=== PATIENT | male | born 1960 | race Caucasian/White ===

== ENCOUNTER 2016-12-30 09:23 | Inpatient (IN) | payer BC ==
[~2016-12-30] VITALS: Ht 193 cm; Wt 110.2 kg
[~2016-12-30 09:23] MED LIST: CYCL-36 PO; IBUP100S30 PO; LORT5TAB PO; NAPR550 PO
[2016-12-30 13:00] VITALS: BP 127/72; PULSE 95; RESP 18; TEMP 96.6; O2SAT 92
[2016-12-30] MEDS ORDERED: DIATRIZOATE MEGLUM/DIATRIZOATE SOD 9 ML CUP PO ONE (14:15)
[2016-12-30] MEDS ORDERED: COLA100C3 PO (14:26)
[2016-12-30] MEDS ORDERED: HYDR-3583 PO (14:26)
[2016-12-30] MEDS ORDERED: IBUP800T23 PO (14:26)
[2016-12-30] MEDS ORDERED: ZANT150T2 PO (14:26)
[2016-12-30] MEDS ORDERED: DOCUSATE SODIUM 50 MG/SENNA 8.6 MG TAB PO PRN (14:30)
[2016-12-30] MEDS ORDERED: ACETAMINOPHEN/HYDROcodone 325 MG/10 MG TAB PO PRN (14:30)
[2016-12-30] MEDS ORDERED: MAGNESIUM HYDROXIDE SUSP 30 ML CUP PO PRN (14:30)
[2016-12-30] MEDS ORDERED: ACETAMINOPHEN/HYDROcodone 325 MG/7.5 MG TAB PO PRN (14:30)
[2016-12-30 16:00] VITALS: BP 132/78; PULSE 98; RESP 18; TEMP 97.1; O2SAT 94
[2016-12-30] MEDS: CALCIUM CARBONATE 500 MG CHEWABLE TAB CHEW PRN (16:41)
--- NOTE | 2016-12-30 16:44 | HHI.PR ---
Objective Vitals Vital Signs Date Time Temp Pulse Resp B/P Pulse Ox O2 Delivery O2 Flow Rate FiO2 12/30/16 13:00 96.6 95 18 127/72 92 Ilda Brock MD Dec 30, 2016 16:44
[2016-12-30 17:31] LABS: AUTOMATED NEUTROPHIL # 13.8 TH/MM3 (1.8-7.7); BASOPHIL # 0.2 TH/MM3 (0-0.2); BASOPHIL % 0.7 % (0.0-2.0); EOSINOPHIL # 10.3 TH/MM3 (0-0.4); EOSINOPHIL % 37.8 % (0.0-4.0); HEMATOCRIT 38.1 % (39.0-51.0); HEMO FLAGS DIFF FINAL; LYMPHOCYTE # 1.9 TH/MM3 (1.0-4.8); MEAN CELL VOLUME 84.9 FL (80.0-100.0); MEAN CORPUSCULAR HEMOGLOBIN 28.2 PG (27.0-34.0); MEAN CORPUSCULAR HGB CONC 33.2 % (32.0-36.0); MONO % 3.9 % (0.0-8.0); NEUT % 50.6 % (16.0-70.0); PLATELET COUNT 406 TH/MM3 (150-450); RED BLOOD COUNT 4.49 MIL/MM3 (4.50-5.90); RED CELL DISTRIBUTION WIDTH 13.9 % (11.6-17.2); WHITE BLOOD COUNT 27.3 TH/MM3 (4.0-11.0)
[2016-12-30 17:43] LABS: APTT (PATIENT) 28.4 SEC (24.3-30.1); PROTHROMBIN TIME - PATIENT 11.4 SEC (9.8-11.6)
[2016-12-30 17:58] LABS: ALT (GPT) 33 U/L (12-78); ANION GAP 9 MEQ/L (5-15); AST (GOT) 11 U/L (15-37); BICARBONATE 29.4 MEQ/L (21.0-32.0); BLOOD UREA NITROGEN 62 MG/DL (7-18); CHLORIDE 100 MEQ/L (98-107); GLOMERULAR FILTRATION RATE 21 ML/MIN (>89); POTASSIUM 4.5 MEQ/L (3.5-5.1); SODIUM (NA) 138 MEQ/L (136-145)
[2016-12-30 18:01] LABS: ALKALINE PHOSPHATASE 124 U/L (45-117); TOTAL BILIRUBIN ADULT 0.3 MG/DL (0.2-1.0)
--- NOTE | 2016-12-30 18:06 | HHI.HP ---
[facility] Service [facility] Primary Care Physician Hal Yi MD Admission Diagnosis Diagnoses: Travel History International Travel<30 Days: No Contact w/Intl Traveler <30 Da: No History of Present Illness Pt evaluated at 1644 Patient is a 56-year-old male with past medical history of back pain and melanoma in situ is a direct admit to the hospital. He comes from Dr. Ng's office, his oncologist, because of severe back pain felt to be caused by metastatic lung cancer to his spine. Patient tells me that around the end of September, he was loading some aches and experienced excruciating pain. He states that he has been having back problems on and off for years however the past 10 weeks his back problems have been getting worse. He has been seeing a chiropractor on and off was diagnosed with back spasms was prescribed Flexeril. He went to see his primary care physician who ordered an MRI last Thursday. On Thursday she went to see his primary care doctor and he was told that they found metastatic disease which initially was thought to be from his prior history of melanoma. He was referred to an oncologist and saw Dr. Ng yesterday. Per , when they spoke about the history of melanoma, she was able to show Dr. Ng the pathology report which apparently showed clear margins and it was melanoma in situ. A chest x-ray was ordered, and showed a lung mass which is very concerning for lung cancer. Patient tells me that he takes hydrocodone 1 tablet when necessary every 6 hours and 2 tablets when the pain is worse. He also takes ibuprofen 800 mg 3 times a day which seems to help a lot. She denies any urinary incontinence or stool incontinence. Does have weakness on the right lower extremity due to his sciatica. He feels some numbness on the lower extremity as well. His is a walker to ambulate at times. Review of Systems Except as stated in HPI: all other systems reviewed are Neg Past Family Social History Past Medical History Back pain, melanoma in situ Past Surgical History 3 nodules removed on the left shouldeSkinr Melanoma removal Allergies: Coded Allergies: Penicillin (Verified Allergy, Severe, HIVES IN THROAT, CAN'T BREATHE, 12/11) Family History Mother from a heart attack in her 70s Father had bypass surgery, kidney problems, skin cancer and prostate cancer. Brother had a triple bypass and a stroke Another brother had prostate cancer Social History Quit smoking a year and a half ago. Used to smoke a pack a day for 25 years Drinks alcohol on the weekends about 4-5 beers a day during the weekends. Denies any history of withdrawals, denies any illegal drug use Physical Exam Vital Signs Vital Signs Date Time Temp Pulse Resp B/P Pulse Ox O2 Delivery O2 Flow Rate FiO2 12/30/16 16:00 97.1 98 18 132/78 94 12/30/16 13:00 96.6 95 18 127/72 92 Physical Exam GENERAL: This is a well-nourished, well-developed patient, in no apparent distress. SKIN: No rashes, ecchymoses or lesions. Cool and dry. HEAD: Atraumatic. Normocephalic. No temporal or scalp tenderness. EYES: Pupils equal round and reactive. Extraocular motions intact. No scleral icterus. No injection or drainage. ENT: Nose without bleeding, purulent drainage or septal hematoma. Throat without erythema, tonsillar hypertrophy or exudate. Uvula midline. Airway patent. NECK: Trachea midline. No JVD or lymphadenopathy. Supple, nontender, no meningeal signs. CARDIOVASCULAR: Regular rate and rhythm without murmurs RESPIRATORY: Clear to auscultation. Breath sounds equal bilaterally. No wheezes GASTROINTESTINAL: Abdomen soft, non-tender, nondistended. No hepato-splenomegaly , or palpable masses. No guarding. MUSCULOSKELETAL: Extremities without edema. No calf tenderness. Negative Homans sign bilaterally. No tenderness along the spine with palpation NEUROLOGICAL: Awake and alert. Cranial nerves II through XII intact. Motor and sensory grossly within normal limits. Five out of 5 muscle strength in all muscle groups except for 4 out of 5 on the right lower extremity. Sensation diminished on the right lower extremity. Normal speech. Laboratory Laboratory Tests Test 12/30/16 17:11 White Blood Count 27.3 Red Blood Count 4.49 Hemoglobin 12.7 Hematocrit 38.1 Mean Corpuscular Volume 84.9 Mean Corpuscular Hemoglobin 28.2 Mean Corpuscular Hemoglobin 33.2 Concent Red Cell Distribution Width 13.9 Platelet Count 406 Mean Platelet Volume 7.2 Neutrophils (%) (Auto) 50.6 Lymphocytes (%) (Auto) 7.0 Monocytes (%) (Auto) 3.9 Eosinophils (%) (Auto) 37.8 Basophils (%) (Auto) 0.7 Neutrophils # (Auto) 13.8 Lymphocytes # (Auto) 1.9 Monocytes # (Auto) 1.1 Eosinophils # (Auto) 10.3 Basophils # (Auto) 0.2 CBC Comment DIFF FINAL Differential Comment Prothrombin Time 11.4 Prothromb Time International 1.0 Ratio Activated Partial 28.4 Thromboplast Time Result Diagram: 12/30/16 5086 Assessment and Plan Assessment and Plan Lung mass noted on chest x-ray as an outpatient w Metastasis to the spine. I personally spoke with Dr. Larry Ng who requested that patient be admitted for further evaluation, as he suspects lung cancer is the primary. Medical oncology, Neurosurgery, neurology, and radiation oncology have been consulted. CBC, BMP, PT/PTT/CEA ordered. Pain meds percocets prn and celebrex daily added. added morphine prn breakthrough pain. PT eval ordered. CT abd/pelvix/thorax and MRI brain ordered. Melanoma in situ: per , completely resected GERD: protonix and tums added DVT proph: ambulation as tolerated, SCD/EDWIN and heparin Code Status full Discussed Condition With patient, and Ilda Rangel MD Dec 30, 2016 18:06
[2016-12-30] MEDS ORDERED: oxyCODONE/ACETAMINOPHEN 10 MG/325 MG TAB PO PRN (18:15)
[2016-12-30] MEDS ORDERED: CELECOXIB 200 MG CAP PO SCH (18:15)
--- NOTE | 2016-12-30 19:38 | RADRPT ---
EXAM DATE/TIME: 12/30/2016 19:08 [facility] COMPARISON: No previous studies available for comparison. INDICATIONS : Evaluate for metastatic disease. RADIATION DOSE: 19.35 CTDIvol (mGy) ; Combined studies - Thorax/Abdomen/Pelvis MEDICAL HISTORY : Carcinoma, lung. Metastatic, bone. SURGICAL HISTORY : None. ENCOUNTER: Initial ACUITY: 1 day PAIN SCALE: 0/10 LOCATION: Bilateral chest TECHNIQUE: Volumetric scanning of the chest was performed. Using automated exposure control and adjustment of t he mA and/or kV according to patient size, radiation dose was kept as low as reasonably achievable to obtain optimal diagnostic quality images. FINDINGS: LUNGS: Large mass superior segment right lower lobe extending into the hilum. This measures approximately 9. 9 x 6.7 cm. Multiple bilateral metastatic nodules ranging in size from 2-21 mm. Prominent nodule left lower lobe measures 2.1 cm. Numerous other bilateral pulmonary nodules. PLEURAE: There is no pleural thickening or pleural effusion. MEDIASTINUM: Right paratracheal adenopathy measures 3.6 x 3.0 cm. Prominent subcarinal adenopathy and right hilar adenopathy. The mass encases the right lower lobe bronchus. Superior mediastinal and prevascular preston opathy. AXILLAE: Left axillary adenopathy.. MUSCULOSKELETAL: Within normal limits for patient age. MISCELLANEOUS: The visualized upper abdominal organs demonstrate no acute abnormality. CONCLUSION: 1. Large right lower lobe mass extending into the hilum. 2. Numerous bilateral metastatic pulmonary nodules. 3. Metastatic adenopathy in the right peritracheal and subcarinal regions. There is also superior med iastinal adenopathy and left axillary adenopathy. Milan Mccallum MD on December 30, 2016 at 19:32 Board Certified Radiologist. This report was verified electronically.
--- NOTE | 2016-12-30 19:39 | RADRPT ---
EXAM DATE/TIME: 12/30/2016 19:08 [facility] COMPARISON: No previous studies available for comparison. INDICATIONS : Evaluate for metastatic disease. ORAL CONTRAST: Prescribed oral contrast ingested. RADIATION DOSE: 19.35 CTDIvol (mGy) ; Combined studies - Thorax/Abdomen/Pelvis MEDICAL HISTORY : Carcinoma, lung. Metastatic, bone. SURGICAL HISTORY : None. ENCOUNTER: Initial ACUITY: 1 day PAIN SCALE: 0/10 LOCATION: All quadrants. TECHNIQUE: Volumetric scanning of the abdomen and pelvis was performed. Using automated exposure control and ad justment of the mA and/or kV according to patient size, radiation dose was kept as low as reasonably achievable to obtain optimal diagnostic quality images. FINDINGS: LOWER LUNGS: Right lower lobe mass and numerous metastatic pulmonary nodules. LIVER: Homogeneous density without lesion. There is no dilation of the biliary tree. No calcified gallston es. There are some prominent lymph nodes in the region of the dacia hepatis including one measuring 2 .5 x 1.6 cm. SPLEEN: Normal size without lesion. PANCREAS: Within normal limits. KIDNEYS: Normal in size and shape. There is no mass, stone, or hydronephrosis. ADRENAL GLANDS: Within normal limits. VASCULAR: There is no aortic aneurysm. BOWEL/MESENTERY: The stomach, small bowel, and colon demonstrate no acute abnormality. There is no free intraperitone al air or fluid. ABDOMINAL WALL: Within normal limits. RETROPERITONEUM: There is no lymphadenopathy. BLADDER: No wall thickening or mass. REPRODUCTIVE: Within normal limits. INGUINAL: There is no lymphadenopathy or hernia. MUSCULOSKELETAL: Within normal limits for patient age. CONCLUSION: 1. Right lower lobe mass and numerous bilateral pulmonary nodules. 2. There are prominent lymph nodes in the region of the dacia hepatis presumed metastatic. 3. The remainder of the abdomen/pelvis is otherwise unremarkable. Milan Mccallum MD on December 30, 2016 at 19:36 Board Certified Radiologist. This report was verified electronically.
[2016-12-30] MEDS: oxyCODONE/ACETAMINOPHEN 10 MG/325 MG TAB PO PRN (19:54)
--- NOTE | 2016-12-30 19:54 | RADRPT ---
EXAM DATE/TIME: 12/30/2016 19:22 [facility] COMPARISON: No previous studies available for comparison. INDICATIONS : Metastatic disease. MEDICAL HISTORY : Carcinoma, lung. Melanoma. Hyperlipidemia. SURGICAL HISTORY : Melanoma removed from left shoulder. ENCOUNTER: Subsequent ACUITY: 1 day PAIN SCORE: 5/10 LOCATION: cranial TECHNIQUE: Multiplanar, multisequence MRI of the brain was performed without contrast. FINDINGS: CEREBRUM: The ventricles are normal for age. No evidence of midline shift, mass lesion, hemorrhage or acute in farction. No extraaxial fluid collections are seen. The pituitary gland and suprasellar cistern are normal in configuration. WHITE MATTER: A. few scattered foci of bright T2 signal abnormalities are seen in the white matter. POSTERIOR FOSSA: The cerebellum and brainstem are intact. The 4th ventricle is midline. The cerebellopontine angle is unremarkable. The cerebellar tonsils are normal in position. DIFFUSION IMAGING: No focal areas of restricted diffusion are seen. No evidence of acute infarction. EXTRACRANIAL: The visualized portions of the orbits and paranasal sinuses are unremarkable. CONCLUSION: 1. Minimal nonspecific white matter changes. 2. No definite metastatic disease. Milan Mccallum MD on December 30, 2016 at 19:50 Board Certified Radiologist. This report was verified electronically.
[2016-12-30 20:00] VITALS: BP 133/81; PULSE 97; RESP 18; TEMP 97.1; O2SAT 95
--- NOTE | 2016-12-30 21:55 | MB ---
cc: ZINA ALEXANDER DATE OF CONSULTATION: 12/30/2016 REASON FOR CONSULTATION: 56-year-old male with a new diagnosis of what appears to be stage IV lung cancer and now found to have renal failure. PATIENT PROFILE The patient is . This is his second marriage. He has two children from his first marriage and two additional children from his current marriage. The two children live at home and are fraternal twins, a son and daughter, each 14 years old. 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 He stopped smoking one year ago and had smoked one pack of cigarettes per day for 25 years. There is no history of heavy alcohol use. He enjoys boating, fishing and family. HISTORY OF PRESENT ILLNESS: The patient is a 56 year-old male who was well until September of 2016 when he developed acute lower back pain after trying to help move hogs through a chute where he had to push them forward. In the past he had mild chronic lower back pain but this pain was excruciating and different. The pain worsened. He went to an urgent care facility and was treated with pain medicines without success. He saw a chiropractor. He used Advil 200 milligrams four pills 3x a day for the past 4-5 weeks in order to control the pain. He recently saw his primary care physician, Dr. Sherin Vizcaino. Dr. Vizcaino ordered an MRI of the lumbar spine on 12/23/2016 without contrast. He was found to have a focal bone lesion at L3, S1 and possibly T12. There was edema and collapse of the central aspect of the L4 vertebral body which appeared pathologic. There was extension beyond the vertebral body margin at the posterior right lateral aspect of the L4 vertebral body. The bulging of the L4 vertebral body caused a moderate impression on the thecal sac. On the same day, 12/23/2016, the patient had a chest x-ray which showed an abnormal density, measuring 7.8 cm in the posterior and medial right mid lung field. The pain became unbearable and I saw him yesterday in the outpatient clinic. It was apparent that he would require inpatient admission for immediate evaluation due to the severity of the pain and the time that it would take to accomplish the necessary studies and consultations. The patient was hospitalized this morning at my request. He had a CMP on 12/30/2016 and is found to be in renal failure which is new. The BUN is 62, creatinine is 3.09, calcium is 10.3, alk phos 124, other liver function tests are normal. CEA is 249. Approximately 1-2 months ago he had blood work and it is my understanding that he had a normal BUN and creatinine. At the present time his complaints are slight dry nonproductive cough and an occasional wheeze. The major problem that he has is severe lower back pain with radiation down the right leg to the heel. RADIOLOGIC STUDIES: The following radiographic studies were done today: CT scan of the thorax was done without contrast because of the elevated creatinine. The lungs show a large mass superior segment right lower lobe extending into the hilum. This measures 9.9 x 6.7 cm. There are multiple bilateral metastatic nodules ranging in size from 2 to 21 mm. There is a prominent nodule in the left lower lobe measuring 2.1 cm. There are numerous other bilateral nodules. There is right paratracheal adenopathy measuring 3.6 x 3.0 cm. There is prominent subcarinal adenopathy and right hilar adenopathy. The mass encases the right lower lobe bronchus. There is superior mediastinal and prevascular adenopathy. There is a left axillary lymph node. MRI of the brain without contrast shows no evidence of metastatic disease. A CT scan of the abdomen and pelvis without contrast shows a right lower lobe mass and numerous bilateral pulmonary nodules. There are prominent lymph nodes in the region the dacia hepatis presumed metastatic. The remainder of the abdomen and pelvis is otherwise unremarkable. PAST SURGICAL HISTORY 1. Benign cysts removed from the skin . 2. Wide excision of melanoma in situ, right leg, following shave bx 2012 identifying residual melanoma in situ, no invasive component, total margin of resection was 2.2 cm. 3. Shave biopsy of right lower leg 09/30/2012 showing melanoma in situ. PAST MEDICAL HISTORY: History of lower back pain dating back to the , requiring at one point a steroid injection, but otherwise not a significant problem. MEDICATIONS PRIOR TO ADMISSION: 1. The patient was taking Advil 200 milligrams 4 tablets, 3x a day for 4-5 weeks. 2. Hydrocodone/Acetaminophen 3. Zantac ALLERGIES Pen-Vee K. REVIEW OF SYSTEMS Constitutional: 20-pound weight loss in the past several weeks. No history of headaches. No visual or hearing problems. No neck pain. No enlarged lymph nodes. No breast masses. He has had slight wheezing and cough. No chest pain. Recent slight decrease in appetite with 20 pound weight loss. Poor urinary stream over the past few months. Musculoskeletal: Severe pain lower back with radiation down into the right leg. Neurologic: Radiation of pain from lower back into the right leg. Psychiatric: Patient worried due to the pain and new diagnosis. ASSESSMENT: 1. 56-year-old male with a history of tobacco presenting with a 9.9 cm mass right lung with hilar and mediastinal adenopathy and pulmonary metastases. In addition he has metastatic disease to the lumbosacral spine and has severe pain in the lower back radiating down the right leg. I believe that he has stage IV lung cancer. 2. The second problem is that the patient has renal failure. This is new. I believe this is due to the ibuprofen. PLAN 1. Needle biopsy of the lung. 2. IV fluids. 3. Renal consult. 4. Neurosurgical consult as it appears that he has bone pressing against the cauda equina and he may require surgery. 5. Radiation oncology consult. 6. Once pathology is back, I will be able to determine what treatment is appropriate. This situation is very grave as we are dealing with a large volume of tumor, stage IV disease, uncontrolled back pain which may require surgery and now renal failure with a calculated GFR of 21 mL which I believe is due to nonsteroidal anti-inflammatory medications. MD JAYY Bettencourt/SHAHEED /9:04 PM /9:28 PM [facility]
[2016-12-30] MEDS: SODIUM CHLOR 0.45% 1000 ML INJ 1,000 ML IV SCH (23:43)
[2016-12-31] VITALS (10 sets, daily range): BP systolic 98–155; BP diastolic 72–91; PULSE 90–104; RESP 16–20; TEMP 96.4–98.2; O2SAT 91–96
[2016-12-31 07:26] LABS: BICARBONATE 25.9 MEQ/L (21.0-32.0); POTASSIUM 4.7 MEQ/L (3.5-5.1)
[2016-12-31] MEDS ORDERED: fentaNYL CITRATE 250 MCG/5 ML AMP ONE (07:59)
[2016-12-31] MEDS ORDERED: MIDAZOLAM HCL 5 MG/5 ML VIAL ONE (07:59)
[2016-12-31] MEDS ORDERED: LIDOCAINE HCL 1% 20 ML VIAL ONE (08:00)
[2016-12-31] MEDS: SODIUM CHLOR 0.45% 1000 ML INJ 1,000 ML IV SCH (08:55)
[2016-12-31] MEDS ORDERED: PANTOPRAZOLE SOD 40 MG DELAYED RELEASE TAB PO SCH (09:00)
--- NOTE | 2016-12-31 09:33 | PD.ONC.PN ---
Subjective Subjective Remarks pain in lower back and down right leg severe. compression stocking make it worse Objective Data Date Time Temp Pulse Resp B/P Pulse Ox O2 Delivery O2 Flow Rate FiO2 12/31/16 09:06 98.2 98 18 126/76 92 12/31/16 04:00 96.4 97 18 139/91 96 12/31/16 00:00 96.7 95 18 134/88 94 12/30/16 20:00 97.1 97 18 133/81 95 12/30/16 16:00 97.1 98 18 132/78 94 12/30/16 13:00 96.6 95 18 127/72 92 Result Diagram: 12/30/16 1711 12/31/16 0629 Laboratory Results Laboratory Tests Test 12/30/16 12/31/16 17:11 06:29 White Blood Count 27.3 TH/MM3 Red Blood Count 4.49 MIL/MM3 Hemoglobin 12.7 GM/DL Hematocrit 38.1 % Mean Corpuscular Volume 84.9 FL Mean Corpuscular Hemoglobin 28.2 PG Mean Corpuscular Hemoglobin 33.2 % Concent Red Cell Distribution Width 13.9 % Platelet Count 406 TH/MM3 Mean Platelet Volume 7.2 FL Neutrophils (%) (Auto) 50.6 % Lymphocytes (%) (Auto) 7.0 % Monocytes (%) (Auto) 3.9 % Eosinophils (%) (Auto) 37.8 % Basophils (%) (Auto) 0.7 % Neutrophils # (Auto) 13.8 TH/MM3 Lymphocytes # (Auto) 1.9 TH/MM3 Monocytes # (Auto) 1.1 TH/MM3 Eosinophils # (Auto) 10.3 TH/MM3 Basophils # (Auto) 0.2 TH/MM3 CBC Comment DIFF FINAL Differential Comment Prothrombin Time 11.4 SEC Prothromb Time International 1.0 RATIO Ratio Activated Partial 28.4 SEC Thromboplast Time Sodium Level 138 MEQ/L 135 MEQ/L Potassium Level 4.5 MEQ/L 4.7 MEQ/L Chloride Level 100 MEQ/L 100 MEQ/L Carbon Dioxide Level 29.4 MEQ/L 25.9 MEQ/L Anion Gap 9 MEQ/L 9 MEQ/L Blood Urea Nitrogen 62 MG/DL 57 MG/DL Creatinine 3.09 MG/DL 2.47 MG/DL Estimat Glomerular Filtration 21 ML/MIN 27 ML/MIN Rate Random Glucose 133 MG/DL 101 MG/DL Calcium Level 10.3 MG/DL 10.6 MG/DL Total Bilirubin 0.3 MG/DL Aspartate Amino Transf 11 U/L (AST/SGOT) Alanine Aminotransferase 33 U/L (ALT/SGPT) Alkaline Phosphatase 124 U/L Total Protein 7.7 GM/DL Albumin 3.1 GM/DL Carcinoembryonic Antigen 249.9 NG/ML Administered Medications Medications (Trade) Dose Ordered Sig/Nilo Route PRN Reason Start Time Stop Time Status Last Admin Dose Admin Calcium Carbonate (Tums Chew) 500 mg Q12HR PRN CHEW HEART BURN 12/30/16 16:15 12/30/16 16:41 Oxycodone/ Acetaminophen 2 tab 2 tab Q6H PRN PO PAIN SCALE 7 TO 10 12/30/16 18:15 12/30/16 19:54 Sodium Chloride (1/2 NS 1000 ml Inj) 1,000 ml @ 84 mls/hr [id number] IV 12/30/16 21:00 12/30/16 23:43 Objective Remarks GENERAL: Well-nourished, well-developed patient. SKIN: Warm and dry. HEAD: Normocephalic. EYES: No scleral icterus. No injection or drainage. NECK: Supple, trachea midline. No JVD or lymphadenopathy. LYMPHATIC: No adenopathy. CARDIOVASCULAR: Regular rate and rhythm without murmurs. RESPIRATORY: Breath sounds equal bilaterally. No accessory muscle use. GASTROINTESTINAL: Abdomen soft, non-tender, nondistended. EXTREMITIES: No cyanosis, or edema. MUSCULOSKELETAL: lower back tende NEUROLOGICAL: mild right leg weakness due to pain. PSYCHIATRIC: Appropriate mood and affect; insight and judgment normal. Assessment/Plan Assessment 1: stage IV lung cancer - for lung bx today -await neurosurgical opinion as I am concerned that radiation to LS area will not resolve pain if due to bone impingement 2: -renal function improved. will continue IV fluids, avoid NSAIDs, and await renal consult Larry Ng MD Dec 31, 2016 09:32
--- NOTE | 2016-12-31 09:55 | RADRPT ---
EXAM DATE/TIME: 12/31/2016 08:29 [facility] COMPARISON: No previous studies available for comparison. INDICATIONS : Right lung mass SEDATION TIME: 30 minutes BIOPSY SITE: Right lung MEDICATION(S): 1.) 3 mg midazolam (Versed) IV 2.) 150 mcg fentanyl (Sublimaze) IV DEVICE(S): 1.) 18 gauge Bartholomew blunt needle 2.) 20 gauge Temno core biopsy needle MEDICAL HISTORY : Melanoma SURGICAL HISTORY : None. ENCOUNTER: Initial ACUITY: 1 day PAIN SCORE: 0/10 LOCATION: Right chest A total of five core specimen(s) were obtained and sent to the laboratory for pathologic evaluation. PROCEDURE: 1. CT guided lung biopsy. 2. Conscious sedation with continuous EKG and oximetry monitoring. 3. EKG and oximetry remained stable throughout the procedure. Prior to the procedure informed consent was obtained. Any appropriate prior imaging studies were rev iewed. Using automated exposure control and adjustment of the mA and/or kV according to patient size, radiation dose was kept as low as reasonably achievable to obtain optimal diagnostic quality images. The site was prepped in a sterile fashion. Full sterile technique was used, including cap, mask, georgette rile gloves and gown and a large sterile sheet. Hand hygiene and 2% chlorhexidine and/or betadine/al cohol prep was utilized per protocol for cutaneous antisepsis. The skin and subcutaneous tissues wer e infiltrated with local anesthetic solution. Using the prone oblique approach an 18 gauge blunt needle was placed down to the subcarinal region an d 5 cores obtained. Follow-up CT scan reveals no pneumothorax. Conscious sedation was performed with the prescribed dosages and duration as above in the presence of an independent trained radiology nurse to assist in the monitoring of the patient. EKG and oximetry remained stable throughout the procedure. The patient tolerated the procedure well and there were no complications. The patient was sent to Radiology Outpatient Unit in stable condition. CONCLUSION: Uncomplicated CT guided biopsy of the right lung mass. Preliminary pathology interpretation is a cell ular specimen.. John Bravo MD FACR on December 31, 2016 at 9:52 Board Certified Radiologist. This report was verified electronically.
[2016-12-31] MEDS: MORPHINE SULFATE 4 MG/ML INJ IV PUSH PRN (11:12)
--- NOTE | 2016-12-31 11:32 | RADRPT ---
EXAM DATE/TIME: 12/31/2016 10:55 [facility] COMPARISON: No previous studies available for comparison. INDICATIONS : Pneumothorax. Post right lung biopsy. MEDICAL HISTORY : Melanoma SURGICAL HISTORY : None. ENCOUNTER: Subsequent ACUITY: 1 day PAIN SCORE: 2/10 LOCATION: Right chest FINDINGS: A single frontal expiratory view of the chest was performed. Large mass is seen on the right with mu ltiple smaller nodules on the left. The lungs are symmetrically aerated and clear. No evidence of pn eumothorax. Mediastinal structures are in the midline. The cardio-mediastinal contours and bronchopulmonary markings are unremarkable for an expiratory exam . Osseous structures are intact. CONCLUSION: There is no pneumothorax. John Bravo MD FACR on December 31, 2016 at 11:30 Board Certified Radiologist. This report was verified electronically.
[2016-12-31] MEDS: CALCIUM CARBONATE 500 MG CHEWABLE TAB CHEW PRN (12:03)
--- NOTE | 2016-12-31 12:03 | PD.CONS ---
(Ricki Combs MD) HPI Consult Requested By Primary Care Physician Hal Yi MD (Ricki Combs MD) Service Neurosurgery Consult Requested By Dr. Ng Reason for Consult Radicular pain with metastatic cancer History of Present Illness Mr. Mae is a 56 year old male who complains of severe lumbar pain and right lower extremity pain. Mr. Mae reports he has a history of chronic back pain but recently severely worsened. He complains his pain is in the lumbar region and radiates down his right lower extremity posterolaterally to the top of the foot. He rates the pain as a 9/10. He has difficulty walking due to the severity of the pain and is requiring a walker to ambulated. He has some gross proximal right leg weakness. He denies bowel or bladder incontinence. He underwent an MRI of the lumbar spine outpatient. This was reviewed and showed bony lesions at L3, S1, and pathological compression fracture of L4 causing stenosis at L4-5. A CT Chest reveals a large lung mass. He was directly admitted to the hospital by Dr. Ng. A neurosurgical evaluation was requested. (Kanika Avila) Review of Systems Constitutional: DENIES: Fever, Chills Eyes: DENIES: Diplopia, Vision loss Ears, nose, mouth, throat: DENIES: Hearing loss Respiratory: DENIES: Cough, Hemoptysis Gastrointestinal: DENIES: Nausea, Vomiting Genitourinary: DENIES: Urinary incontinence Musculoskeletal: COMPLAINS OF: Back pain Neurologic: COMPLAINS OF: Abnormal gait, Localized weakness, Paresthesias Psychiatric: DENIES: Hallucinations (Kanika Avila) Past Family Social History Allergies: Coded Allergies: Penicillin (Verified Allergy, Severe, HIVES IN THROAT, CAN'T BREATHE, 12/11) Past Medical History melanoma in situ Past Surgical History Skin melanoma removal Reported Medications Reviewed in EMR Active Ordered Medications Current Medications Medications (Trade) Dose Ordered Sig/Nilo Route PRN Reason Start Time Stop Time Status Last Admin Dose Admin Senna/Docusate Sodium (Ese-Colace) 1 tab BID PRN PO CONSTIPATION 12/30/16 14:30 Polyethylene Glycol (Miralax) 17 gm DAILY PO 12/31/16 09:00 12/31/16 12:08 Magnesium Hydroxide (Milk Of Magnesia Liq) 30 ml DAILY PRN PO CONSTIPATION 12/30/16 14:30 Morphine Sulfate (Morphine Inj) 2 mg Q3H PRN IV PUSH BREAKTHROUGH PAIN 12/30/16 14:30 12/31/16 11:12 Pantoprazole Sodium (Protonix) 40 mg DAILY PO 12/31/16 09:00 12/31/16 12:08 Calcium Carbonate (Tums Chew) 500 mg Q12HR PRN CHEW HEART BURN 12/30/16 16:15 12/31/16 12:03 Oxycodone/ Acetaminophen (Percocet 10-325 Mg) 1 tab Q6H PRN PO PAIN SCALE 3 TO 6 12/30/16 18:15 Oxycodone/ Acetaminophen 2 tab 2 tab Q6H PRN PO PAIN SCALE 7 TO 10 12/30/16 18:15 12/31/16 12:05 Sodium Chloride (1/2 NS 1000 ml Inj) 1,000 ml @ 84 mls/hr [id number] IV 12/30/16 21:00 12/30/16 23:43 Family History Mother- coronary artery disease, myocardial infarction Father - coronary artery disease, renal disease, skin and prostate cancer Brother - CAD, CVA, Prostate CA Social History Previous tobacco use for 25 years, quite 1.5 years ago Drinks 5 beers over the weekend, denies illicit drug use (Kanika Avila) Physical Exam Vital Signs Vital Signs Date Time Temp Pulse Resp B/P Pulse Ox O2 Delivery O2 Flow Rate FiO2 12/31/16 11:06 104 20 98/72 93 12/31/16 10:36 90 17 133/79 93 12/31/16 10:06 92 18 108/72 93 12/31/16 09:36 95 17 127/82 91 12/31/16 09:06 98.2 98 18 126/76 92 12/31/16 04:00 96.4 97 18 139/91 96 12/31/16 00:00 96.7 95 18 134/88 94 12/30/16 20:00 97.1 97 18 133/81 95 12/30/16 16:00 97.1 98 18 132/78 94 12/30/16 13:00 96.6 95 18 127/72 92 Laboratory Laboratory Tests Test 12/30/16 12/31/16 17:11 06:29 White Blood Count 27.3 Red Blood Count 4.49 Hemoglobin 12.7 Hematocrit 38.1 Mean Corpuscular Volume 84.9 Mean Corpuscular Hemoglobin 28.2 Mean Corpuscular Hemoglobin 33.2 Concent Red Cell Distribution Width 13.9 Platelet Count 406 Mean Platelet Volume 7.2 Neutrophils (%) (Auto) 50.6 Lymphocytes (%) (Auto) 7.0 Monocytes (%) (Auto) 3.9 Eosinophils (%) (Auto) 37.8 Basophils (%) (Auto) 0.7 Neutrophils # (Auto) 13.8 Lymphocytes # (Auto) 1.9 Monocytes # (Auto) 1.1 Eosinophils # (Auto) 10.3 Basophils # (Auto) 0.2 CBC Comment DIFF FINAL Differential Comment Prothrombin Time 11.4 Prothromb Time International 1.0 Ratio Activated Partial 28.4 Thromboplast Time Sodium Level 138 135 Potassium Level 4.5 4.7 Chloride Level 100 100 Carbon Dioxide Level 29.4 25.9 Anion Gap 9 9 Blood Urea Nitrogen 62 57 Creatinine 3.09 2.47 Estimat Glomerular Filtration 21 27 Rate Random Glucose 133 101 Calcium Level 10.3 10.6 Total Bilirubin 0.3 Aspartate Amino Transf 11 (AST/SGOT) Alanine Aminotransferase 33 (ALT/SGPT) Alkaline Phosphatase 124 Total Protein 7.7 Albumin 3.1 Carcinoembryonic Antigen 249.9 (Ricki Combs MD) Physical Exam Mr. Mae is alert, awake and oriented to time, place and person. Speech is fluent. Higher cognitive functions are normal. Cranial nerve examination demonstrates the pupils to be equal, round, and reactive to light. Extra-ocular movements are intact. Facial motor and sensory function are normal and symmetrical. Gross hearing is intact, bilaterally. 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 In the lower extremities, strength is 4/5 right iliopsoas, quads, hamstring with complaints of pain, 5/5 left iliopsoas, quadriceps, hamstrings, bilateral plantar flexion, dorsiflexion, and extensor hallicus longus. Sensory examination is intact to light touch in both the upper and lower extremities, symmetrically. Deep tendon reflexes are 2+ and symmetrical in the biceps, triceps, and brachioradialis, bilaterally, in the upper extremities. In the lower extremities , the patellar and Achilles are 2+, bilaterally. There is a bilateral plantar flexion response. Hoffmanns sign is negative. There is no clonus. Cerebellar examination is intact to [id number] test. (Kanika Avila) Result Diagram: 12/30/16 1711 12/31/16 0629 Imaging Last Impressions Lung Biopsy CT 12/31/16 0716 Signed Impressions: Service Date/Time: Saturday, December 31, 2016 08:29 - CONCLUSION: Uncomplicated CT guided biopsy of the right lung mass. Preliminary pathology interpretation is a cellular specimen.. John Bravo MD FACR Chest X-Ray 12/31/16 0000 Signed Impressions: Service Date/Time: Saturday, December 31, 2016 10:55 - CONCLUSION: There is no pneumothorax. Jhon Bravo MD FACR Chest CT 12/30/16 0000 Signed Impressions: Service Date/Time: Friday, December 30, 2016 19:08 - CONCLUSION: 1. Large right lower lobe mass extending into the hilum. 2. Numerous bilateral metastatic pulmonary nodules. 3. Metastatic adenopathy in the right peritracheal and subcarinal regions. There is also superior mediastinal adenopathy and left axillary adenopathy. Milan Mccallum MD Brain MRI 12/30/16 0000 Signed Impressions: Service Date/Time: Friday, December 30, 2016 19:22 - CONCLUSION: 1. Minimal nonspecific white matter changes. 2. No definite metastatic disease. Milan Mccallum MD Abdomen/Pelvis CT 12/30/16 0000 Signed Impressions: Service Date/Time: Friday, December 30, 2016 19:08 - CONCLUSION: 1. Right lower lobe mass and numerous bilateral pulmonary nodules. 2. There are prominent lymph nodes in the region of the dacia hepatis presumed metastatic. 3. The remainder of the abdomen/pelvis is otherwise unremarkable. Milan Mccallum MD (Kanika Avila) Attending Statement Neuro. I reviewed his clinical and radiological findings. Neuro checks in a serial fashion. Recommend MRI L spine spine with contrast. There is retropulsion with compression of the cauda equine. He suffers from intractable pain and a right L5 radiculopathy. He may require a surgical decompression. I will defer further recommendations Decadron 4mg q 6 hr may be beneficial Status post lung biopsy PT and OT evaluation Nutrition. Oral diet Renal. Renal failure. IV hydration. monitor closely urine output, BUN and creatinine Endocrine. Monitor serial Acu checks and SSI as needed in detail ID monitor for signs of infection Protonix for stress ulcer prophylaxis Leo hose and SCD's for DVT prophylaxis Discussed with Dr Ng The exam, history, and the medical decision-making described in the above note were completed with the assistance of the mid-level provider. I reviewed and agree with the findings presented. I attest that I had a [id number] encounter with the patient on the same day, and personally performed and documented my assessment and findings in the medical record (Ricki Combs MD) Ricki Combs MD Dec 31, 2016 12:03 Kanika Avila Dec 31, 2016 13:56 documented my assessment and findings in the medical record (Ricki Combs MD) Ricki Combs MD Dec 31, 2016 12:03 Kanika Avila Dec 31, 2016 13:56
[2016-12-31] MEDS: oxyCODONE/ACETAMINOPHEN 10 MG/325 MG TAB PO PRN ×2 (12:05→18:55)
[2016-12-31] MEDS: POLYETHYLENE GLYCOL 17 GM PKG PO SCH (12:08)
--- NOTE | 2016-12-31 13:33 | PD.CONS ---
[facility] Service Nephrology Consult Requested By Reason for Consult Acute renal failure Primary Care Physician Hal Yi MD History of Present Illness This is a very pleasant 56 y/o male patient who was direct admitted for back pain. He has a hx of metastatic melanoma, and recent imaging shows possible lung involvement. He had lung biopsy today. Labs on arrival abnormal for renal failure. Creatinine was 3.089, today is 2.47. His potassium is normal, but he is hypercalcemic. His is at bedside. They report for 10 weeks he was taking Motrin TID, 800 mg. He was on Aleve prior to that. There are no baseline labs for comparison, but the reports all of his labs from november were normal. I was not able to verify this. He is a full code. Is on IVF of 0.9% NS @ 84cc/ hr. He is non oliguric, and is a full code. (Daniela Montano) Review of Systems Constitutional: COMPLAINS OF: Fatigue Musculoskeletal: COMPLAINS OF: Joint pain, Back pain (Daniela Montano) Past Family Social History Allergies: Coded Allergies: Penicillin (Verified Allergy, Severe, HIVES IN THROAT, CAN'T BREATHE, 12/11) Past Medical History back pain melanoma, metastatic Past Surgical History 3 nodules removed on the left shouldeSkinr Melanoma removal Reported Medications unable to list names Active Ordered Medications Current Medications Medications (Trade) Dose Ordered Sig/Nilo Route Start Time Stop Time Status Last Admin (Ese-Colace) 1 tab BID PRN PO 12/30/16 14:30 (Miralax) 17 gm DAILY PO 12/31/16 09:00 12/31/16 12:08 (Milk Of Magnesia Liq) 30 ml DAILY PRN PO 12/30/16 14:30 (Morphine Inj) 2 mg Q3H PRN IV PUSH 12/30/16 14:30 12/31/16 11:12 (Protonix) 40 mg DAILY PO 12/31/16 09:00 12/31/16 12:08 (Tums Chew) 500 mg Q12HR PRN CHEW 12/30/16 16:15 12/31/16 12:03 (Percocet 10-325 Mg) 1 tab Q6H PRN PO 12/30/16 18:15 Oxycodone/ Acetaminophen 2 tab 2 tab Q6H PRN PO 12/30/16 18:15 12/31/16 12:05 (1/2 NS 1000 ml Inj) 1,000 ml @ 84 mls/hr [id number] IV 12/30/16 21:00 12/30/16 23:43 Family History no hx of renal disorders Social History 25 pk year smoking hx occasional ETOH uses walker 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 Ambulating with walker in room. SKIN: No rashes, ecchymoses or lesions. Cool and dry. HEAD: Atraumatic. Normocephalic. No temporal or scalp tenderness. EYES: Pupils equal round and reactive. Extraocular motions intact. No scleral icterus. No injection or drainage. ENT: Nose without bleeding, purulent drainage or septal hematoma. Throat without erythema, tonsillar hypertrophy or exudate. Uvula midline. Airway patent. NECK: Trachea midline. No JVD or lymphadenopathy. Supple, nontender, no meningeal signs. CARDIOVASCULAR: Regular rate and rhythm without murmurs RESPIRATORY: Clear to auscultation. Breath sounds equal bilaterally. No wheezes GASTROINTESTINAL: Abdomen soft, non-tender, nondistended. No hepato-splenomegaly , or palpable masses. No guarding. MUSCULOSKELETAL: Extremities without edema. No calf tenderness. Negative Homans sign bilaterally. No tenderness along the spine with palpation NEUROLOGICAL: Awake and alert. Cranial nerves II through XII intact. Motor and sensory grossly within normal limits. Five out of 5 muscle strength in all muscle groups except for 4 out of 5 on the right lower extremity. Sensation diminished on the right lower extremity. Normal speech. Laboratory Laboratory Tests Test 12/30/16 12/31/16 17:11 06:29 White Blood Count 27.3 Red Blood Count 4.49 Hemoglobin 12.7 Hematocrit 38.1 Mean Corpuscular Volume 84.9 Mean Corpuscular Hemoglobin 28.2 Mean Corpuscular Hemoglobin 33.2 Concent Red Cell Distribution Width 13.9 Platelet Count 406 Mean Platelet Volume 7.2 Neutrophils (%) (Auto) 50.6 Lymphocytes (%) (Auto) 7.0 Monocytes (%) (Auto) 3.9 Eosinophils (%) (Auto) 37.8 Basophils (%) (Auto) 0.7 Neutrophils # (Auto) 13.8 Lymphocytes # (Auto) 1.9 Monocytes # (Auto) 1.1 Eosinophils # (Auto) 10.3 Basophils # (Auto) 0.2 CBC Comment DIFF FINAL Differential Comment Prothrombin Time 11.4 Prothromb Time International 1.0 Ratio Activated Partial 28.4 Thromboplast Time Sodium Level 138 135 Potassium Level 4.5 4.7 Chloride Level 100 100 Carbon Dioxide Level 29.4 25.9 Anion Gap 9 9 Blood Urea Nitrogen 62 57 Creatinine 3.09 2.47 Estimat Glomerular Filtration 21 27 Rate Random Glucose 133 101 Calcium Level 10.3 10.6 Total Bilirubin 0.3 Aspartate Amino Transf 11 (AST/SGOT) Alanine Aminotransferase 33 (ALT/SGPT) Alkaline Phosphatase 124 Total Protein 7.7 Albumin 3.1 Carcinoembryonic Antigen 249.9 (Daniela Montano [facility]) Result Diagram: 12/30/16 1711 12/31/16 0629 Assessment and Plan Problem List: (1) Acute renal failure Plan: in a pt with apparent normal renal function at baseline his renal function has improved since arrival etiology of TAVO may be due to NSAID use, they have been stopped obtain UA for analysis continue IVF but reduce rate to 30 cc/hr no obstruction on imaging slightly hypercalcemic, stop calcium carbonate stop all non essential medications including Protonix daily renal panel, avoid nephrotoxic medications (2) Melanoma Plan: oncology following s/p lung biopsy appreciate further recommendations (Daniela Montano) Assessment and Plan patient was seen and examined. TAVO likely due to NSAID induced. Renal function is improving with conservative therapy. Avoid nephrotoxins. Agree with above assessment and plan. (Kirby Taylor MD) Daniela Montano Dec 31, 2016 13:33 Kirby Taylor MD Dec 31, 2016 21:22
--- NOTE | 2016-12-31 14:57 | HHI.PR ---
Subjective Remarks I had come to evaluate pt earlier this morning but he was getting his biopsy pt currently feels ok. pain is controlled w current regimen, trying to drink more water as per recommendations. denies any CP/SOB/N/V hasn't yet done the MRI no bowel or bladder incontinence Objective Vitals Vital Signs Date Time Temp Pulse Resp B/P Pulse Ox O2 Delivery O2 Flow Rate FiO2 12/31/16 12:00 96.9 98 16 113/79 94 12/31/16 11:06 104 20 98/72 93 12/31/16 10:36 90 17 133/79 93 12/31/16 10:06 92 18 108/72 93 12/31/16 09:36 95 17 127/82 91 12/31/16 09:06 98.2 98 18 126/76 92 12/31/16 04:00 96.4 97 18 139/91 96 12/31/16 00:00 96.7 95 18 134/88 94 12/30/16 20:00 97.1 97 18 133/81 95 12/30/16 16:00 97.1 98 18 132/78 94 I/O 12/30/16 12/30/16 12/30/16 12/31/16 12/31/16 12/31/16 07:00 15:00 23:00 07:00 15:00 23:00 Intake Total 1320 ml 540 ml 240 ml Output Total 0 ml Balance 1320 ml 540 ml 240 ml Intake Oral 1320 ml 240 ml IV Total 540 ml Output Stool Total 0 ml # Voids 1 3 Result Diagram: 12/30/16 1711 12/31/16 0629 Imaging Last Impressions Lung Biopsy CT 12/31/16 0716 Signed Impressions: Service Date/Time: Saturday, December 31, 2016 08:29 - CONCLUSION: Uncomplicated CT guided biopsy of the right lung mass. Preliminary pathology interpretation is a cellular specimen.. John Bravo MD FACR Chest X-Ray 12/31/16 0000 Signed Impressions: Service Date/Time: Saturday, December 31, 2016 10:55 - CONCLUSION: There is no pneumothorax. John Bravo MD FACR Chest CT 12/30/16 0000 Signed Impressions: Service Date/Time: Friday, December 30, 2016 19:08 - CONCLUSION: 1. Large right lower lobe mass extending into the hilum. 2. Numerous bilateral metastatic pulmonary nodules. 3. Metastatic adenopathy in the right peritracheal and subcarinal regions. There is also superior mediastinal adenopathy and left axillary adenopathy. Milan Mccallum MD Brain MRI 12/30/16 0000 Signed Impressions: Service Date/Time: Friday, December 30, 2016 19:22 - CONCLUSION: 1. Minimal nonspecific white matter changes. 2. No definite metastatic disease. Milan Mccallum MD Abdomen/Pelvis CT 12/30/16 0000 Signed Impressions: Service Date/Time: Friday, December 30, 2016 19:08 - CONCLUSION: 1. Right lower lobe mass and numerous bilateral pulmonary nodules. 2. There are prominent lymph nodes in the region of the dacia hepatis presumed metastatic. 3. The remainder of the abdomen/pelvis is otherwise unremarkable. Milan Mccallum MD Objective Remarks GENERAL: This is a well-nourished, well-developed patient, in no apparent distress. CARDIOVASCULAR: Regular rate and rhythm without murmurs RESPIRATORY: Clear to auscultation. Breath sounds equal bilaterally. No wheezes GASTROINTESTINAL: Abdomen soft, non-tender, nondistended. No guarding. MUSCULOSKELETAL: Extremities without edema. No calf tenderness. Negative Homans sign bilaterally. No tenderness along the spine with palpation NEUROLOGICAL: Awake and alert. Cranial nerves II through XII intact. Motor and sensory grossly within normal limits. Five out of 5 muscle strength in all muscle groups except for 4 out of 5 on the right lower extremity. Sensation diminished on the right lower extremity. Normal speech. A/P Assessment and Plan Lung mass noted on chest x-ray as an outpatient w Metastasis to the spine. Medical oncology suspects stage IV lung cancer. neurosx evaluated the pt and has requested MRI of the lumbar spine. they also recommend Neuro checks in a serial fashion. If There is retropulsion with compression of the cauda equine, he may require a surgical decompression. Decadron 4mg q 6 hr may be beneficial. Pain meds percocets prn and morphine prn breakthrough pain. celebrex stopped due TAVO CT abd/pelvix/thorax and MRI brain showed Large right lower lobe mass extending into the hilum. Numerous bilateral metastatic pulmonary nodules. Metastatic adenopathy in the right peritracheal and subcarinal regions. superior mediastinal adenopathy and left axillary adenopathy. prominent lymph nodes in the region of the dacia hepatis presumed metastatic. no brain metastasis noted on MRI. - s/p lung bx today, neurology and radiation oncology have been consulted. -TAVO: on IVFs, continue to monitor closely. nephrology following. appreciate recs CBC shows leukocytosis. CEA elevated. PT following. hypercalcemia: 10.6 today. repeat in AM. on IVFs, most likely from metastatic disease. anemia: mild, monitor hyponatremia: mild, monitor. Melanoma in situ: per , completely resected protonix and tums stopped per renal DVT proph: ambulation as tolerated, SCD/EDWIN and heparin Discharge Planning d/c pending further work-up and clinical improvement Ilda Brock MD Dec 31, 2016 14:57
[2016-12-31 19:49] LABS: BLOOD, URINE NEG (NEG); COMMENT (UR) CULT NOT INDICATED; CULTURE IF INDICATED CULT NOT INDICATED; GLUCOSE,URINE NEG (NEG); HYALINE CAST, URINE 1 /lpf (RARE); KETONE, URINE NEG (NEG); MUCUS URINE FEW /lpf (OCC); NITRITE,URINE NEG (NEG); SQUAMOUS EPITHELIAL CELL URINE <1 /hpf (0-5); URINE COLOR LIGHT-YELLOW (YELLW/STRAW)
[2016-12-31] MEDS: FAMOTIDINE 20 MG TAB PO SCH (21:22)
[2017-01-01] VITALS: BP 139/77; PULSE 98; RESP 18; TEMP 97.8; O2SAT 94
[2017-01-01 04:00] VITALS: BP 127/79; PULSE 98; RESP 18; TEMP 97.2; O2SAT 94
[2017-01-01] MEDS: oxyCODONE/ACETAMINOPHEN 10 MG/325 MG TAB PO PRN ×2 (05:25→13:15)
[2017-01-01] MEDS: MORPHINE SULFATE 4 MG/ML INJ IV PUSH PRN ×4 (06:24→18:22)
[2017-01-01 06:52] LABS: BASOPHIL # 0.1 TH/MM3 (0-0.2); BASOPHIL % 0.4 % (0.0-2.0); EOSINOPHIL # 9.4 TH/MM3 (0-0.4); EOSINOPHIL % 34.6 % (0.0-4.0); HEMATOCRIT 35.8 % (39.0-51.0); HEMO FLAGS DIFF FINAL; LYMPH % 6.5 % (9.0-44.0); LYMPHOCYTE # 1.8 TH/MM3 (1.0-4.8); MEAN CELL VOLUME 83.8 FL (80.0-100.0); MEAN CORPUSCULAR HEMOGLOBIN 28.3 PG (27.0-34.0); MEAN CORPUSCULAR HGB CONC 33.7 % (32.0-36.0); MONO % 3.4 % (0.0-8.0); NEUT % 55.1 % (16.0-70.0); PLATELET COUNT 379 TH/MM3 (150-450); RED BLOOD COUNT 4.27 MIL/MM3 (4.50-5.90); WHITE BLOOD COUNT 27.2 TH/MM3 (4.0-11.0)
[2017-01-01 07:33] LABS: BICARBONATE 27.1 MEQ/L (21.0-32.0)
[2017-01-01 08:00] VITALS: BP 126/75; PULSE 93; RESP 20; TEMP 96.8; O2SAT 94
--- NOTE | 2017-01-01 08:29 | HHI.PR ---
Subjective Remarks Pt tells me that he was having a lot of pain last night. he didn't take his pain med around 1am when he was due thinking he could go without it and to avoid taking it on an empty stomach. By the time he took the pain med, the pills alone didn't control his pain and he had to get the morphine which helped. he states that he had nausea overnight and felt like throwing up but didn't. no chest pain, SOB. Currently pain is controlled. feels tired. Objective Vitals Vital Signs Date Time Temp Pulse Resp B/P Pulse Ox O2 Delivery O2 Flow Rate FiO2 01/01/17 04:00 97.2 98 18 127/79 94 01/01/17 00:00 97.8 98 18 139/77 94 12/31/16 20:30 97.4 97 18 155/86 95 12/31/16 16:00 97.1 94 18 145/84 94 12/31/16 12:00 96.9 98 16 113/79 94 12/31/16 11:06 104 20 98/72 93 12/31/16 10:36 90 17 133/79 93 12/31/16 10:06 92 18 108/72 93 12/31/16 09:36 95 17 127/82 91 12/31/16 09:06 98.2 98 18 126/76 92 I/O 12/31/16 12/31/16 12/31/16 01/01/17 01/01/17 01/01/17 07:00 15:00 23:00 07:00 15:00 23:00 Intake Total 540 ml 240 ml 480 ml 480 ml Output Total 0 ml Balance 540 ml 240 ml 480 ml 480 ml Intake Oral 240 ml 480 ml 480 ml IV Total 540 ml Output Stool Total 0 ml # Voids 1 3 2 2 Result Diagram: 01/01/17 0554 01/01/17 0554 Imaging Last Impressions Lung Biopsy CT 12/31/16 0716 Signed Impressions: Service Date/Time: Saturday, December 31, 2016 08:29 - CONCLUSION: Uncomplicated CT guided biopsy of the right lung mass. Preliminary pathology interpretation is a cellular specimen.. John Bravo MD FACR Chest X-Ray 12/31/16 0000 Signed Impressions: Service Date/Time: Saturday, December 31, 2016 10:55 - CONCLUSION: There is no pneumothorax. John Bravo MD FACR Chest CT 12/30/16 Signed Impressions: Service Date/Time: Friday, December 30, 2016 19:08 - CONCLUSION: 1. Large right lower lobe mass extending into the hilum. 2. Numerous bilateral metastatic pulmonary nodules. 3. Metastatic adenopathy in the right peritracheal and subcarinal regions. There is also superior mediastinal adenopathy and left axillary adenopathy. Milan Mccallum MD Brain MRI 12/30/16 Signed Impressions: Service Date/Time: Friday, December 30, 2016 19:22 - CONCLUSION: 1. Minimal nonspecific white matter changes. 2. No definite metastatic disease. Milan Mccallum MD Abdomen/Pelvis CT 12/30/16 Signed Impressions: Service Date/Time: Friday, December 30, 2016 19:08 - CONCLUSION: 1. Right lower lobe mass and numerous bilateral pulmonary nodules. 2. There are prominent lymph nodes in the region of the dacia hepatis presumed metastatic. 3. The remainder of the abdomen/pelvis is otherwise unremarkable. Milan Mccallum MD Objective Remarks GENERAL: This is a well-nourished, well-developed patient, in no apparent distress. CARDIOVASCULAR: Regular rate and rhythm without murmurs RESPIRATORY: Clear to auscultation. Breath sounds equal bilaterally. No wheezes GASTROINTESTINAL: Abdomen soft, non-tender, nondistended. No guarding. MUSCULOSKELETAL: Extremities without edema. NEUROLOGICAL: Awake and alert. Cranial nerves II through XII intact. Normal speech. A/P Assessment and Plan Lung mass noted on chest x-ray as an outpatient w Metastasis to the spine. Medical oncology suspects stage IV lung cancer. neurosx evaluated the pt and has requested MRI of the lumbar spine which will be done today. they also recommend Neuro checks in a serial fashion. If There is retropulsion with compression of the cauda equine, he may require a surgical decompression. Pain meds percocets prn and morphine prn breakthrough pain. celebrex stopped due TAVO CT abd/pelvix/thorax and MRI brain showed Large right lower lobe mass extending into the hilum. Numerous bilateral metastatic pulmonary nodules. Metastatic adenopathy in the right peritracheal and subcarinal regions. superior mediastinal adenopathy and left axillary adenopathy. prominent lymph nodes in the region of the dacia hepatis presumed metastatic. no brain metastasis noted on MRI. - s/p lung bx today, neurology and radiation oncology have been consulted. - f/u on lumbar spine results, per neurosx he may need Decadron 4mg q 6 hr the night prior to surgery if surgical intervention is needed. -TAVO: on IVFs, continue to monitor closely. nephrology following. appreciate recs. Cr down to 1.34. continue NS@42ml/hr. encourage po hydration. CBC shows leukocytosis 27.2, most likely from malignancy. CEA elevated. PT following. hypercalcemia: 10 today post hydration. repeat in AM. on IVFs, most likely from metastatic disease. anemia: mild, monitor hyponatremia: resolved Melanoma in situ: per , completely resected protonix and tums stopped per renal DVT proph: ambulation as tolerated, SCD/EDWIN and heparin Discharge Planning d/c pending further work-up and clinical improvement Ilda Brock MD Jan 01, 2017 08:28
[2017-01-01] MEDS ORDERED: SODIUM CHLOR 0.9% 1000 ML INJ 1,000 ML IV SCH ×2 (08:30→23:00)
[2017-01-01] MEDS: POLYETHYLENE GLYCOL 17 GM PKG PO SCH (10:00)
[2017-01-01] MEDS: FAMOTIDINE 20 MG TAB PO SCH ×2 (10:00→21:17)
--- NOTE | 2017-01-01 11:07 | PD.ONC.PN ---
Subjective Subjective Remarks Afebrile overnight Having some lower back pain that radiates to his RLE Denies SOB c/o reflux Objective Data Date Time Temp Pulse Resp B/P Pulse Ox O2 Delivery O2 Flow Rate FiO2 01/01/17 08:00 96.8 93 20 126/75 94 01/01/17 04:00 97.2 98 18 127/79 94 01/01/17 00:00 97.8 98 18 139/77 94 12/31/16 20:30 97.4 97 18 155/86 95 12/31/16 16:00 97.1 94 18 145/84 94 12/31/16 12:00 96.9 98 16 113/79 94 12/31/16 11:06 104 20 98/72 93 01/01/17 01/01/17 01/01/17 07:00 15:00 23:00 Intake Total 480 ml Balance 480 ml Result Diagram: 01/01/17 0554 01/01/17 0554 Laboratory Results Laboratory Tests Test 12/31/16 01/01/17 17:37 05:54 Urine Color LIGHT-YELLOW Urine Turbidity CLEAR Urine pH 5.0 Urine Specific [place] 1.011 Urine Protein NEG mg/dL Urine Glucose (UA) NEG mg/dL Urine Ketones NEG mg/dL Urine Occult Blood NEG Urine Nitrite NEG Urine Bilirubin NEG Urine Urobilinogen LESS THAN 2.0 MG/DL Urine Leukocyte Esterase NEG Urine RBC LESS THAN 1 /hpf Urine WBC 3 /hpf Urine Squamous Epithelial <1 /hpf Cells Urine Hyaline Casts 1 /lpf Urine Mucus FEW /lpf Microscopic Urinalysis Comment CULT NOT INDICATED White Blood Count 27.2 TH/MM3 Red Blood Count 4.27 MIL/MM3 Hemoglobin 12.1 GM/DL Hematocrit 35.8 % Mean Corpuscular Volume 83.8 FL Mean Corpuscular Hemoglobin 28.3 PG Mean Corpuscular Hemoglobin 33.7 % Concent Red Cell Distribution Width 14.0 % Platelet Count 379 TH/MM3 Mean Platelet Volume 7.3 FL Neutrophils (%) (Auto) 55.1 % Lymphocytes (%) (Auto) 6.5 % Monocytes (%) (Auto) 3.4 % Eosinophils (%) (Auto) 34.6 % Basophils (%) (Auto) 0.4 % Neutrophils # (Auto) 15.0 TH/MM3 Lymphocytes # (Auto) 1.8 TH/MM3 Monocytes # (Auto) 0.9 TH/MM3 Eosinophils # (Auto) 9.4 TH/MM3 Basophils # (Auto) 0.1 TH/MM3 CBC Comment DIFF FINAL Differential Comment Sodium Level 136 MEQ/L Potassium Level 4.0 MEQ/L Chloride Level 99 MEQ/L Carbon Dioxide Level 27.1 MEQ/L Anion Gap 10 MEQ/L Blood Urea Nitrogen 36 MG/DL Creatinine 1.34 MG/DL Estimat Glomerular Filtration 55 ML/MIN Rate Random Glucose 126 MG/DL Calcium Level 10.0 MG/DL Administered Medications Medications (Trade) Dose Ordered Sig/Nilo Route PRN Reason Start Time Stop Time Status Last Admin Dose Admin Polyethylene Glycol (Miralax) 17 gm DAILY PO 12/31/16 09:00 01/01/17 10:00 Morphine Sulfate (Morphine Inj) 2 mg Q3H PRN IV PUSH BREAKTHROUGH PAIN 12/30/16 14:30 01/01/17 06:24 Oxycodone/ Acetaminophen (Percocet 10-325 Mg) 2 tab Q6H PRN PO PAIN SCALE 7 TO 10 12/30/16 18:15 01/01/17 05:25 Famotidine (Pepcid) 20 mg BID PO 12/31/16 21:00 01/01/17 10:00 Objective Remarks GENERAL: Middle aged male, sitting up in bed in no distress about to work with PT. SKIN: Warm and dry. HEAD: Normocephalic. EYES: No injection or drainage. NECK: Supple, trachea midline. CARDIOVASCULAR: +S1/S2. RESPIRATORY: Lungs clear anteriorly. Breathing unlabored. GASTROINTESTINAL: Abdomen soft, non-tender, nondistended. EXTREMITIES: No cyanosis, or edema. NEUROLOGICAL: Normal speech. Moving all extremities. Assessment/Plan Assessment 1. Dr Combs saw pt yesterday. They recommend MRI of lumbar spine with contrast to evaluate. This will be done as soon as his kidney function improves to the point of him getting the IV contrast. The pt's pain is under control with current regimen. 2. Renal function continues to improve. Per neurology, this was likely r/t his chronic use of NSAIDS. Recommend continue with IVF. 3. Reflux- pt states he usually has acid reflux but lately it has been worsened. Will obtain troponin, EKG to rule out cardiac abnormalities. Attending Statement The exam, history, and the medical decision-making described in the above note were completed with the assistance of the mid-level provider. I reviewed and agree with the findings presented. I attest that I had a [id number] encounter with the patient on the same day, and personally performed and documented my assessment and findings in the medical record. Met with patient and and reviewed situation and I am pleased he is going to surgery tomorrow. He is developing right leg weakness in addition to the pain. Once he has recovered from surgery will begin systemic chemotherapy for metastatic non small cell lung cancer. He will need a port but will deal with this later. appreciate the help!! Jocelyne Ferro Jan 01, 2017 11:07 Larry Ng MD Jan 01, 2017 21:00
[2017-01-01] MEDS: ONDANSETRON HCL 4 MG/2 ML VIAL IV PUSH PRN ×2 (11:46→21:13)
[2017-01-01 12:00] VITALS: BP 138/78; PULSE 90; RESP 20; TEMP 96.6; O2SAT 95
--- NOTE | 2017-01-01 12:09 | HHI.NPPN ---
Subjective Renal Failure: Acute Interval History He looks well. renal function is better. (Daniela Montano) Review of Systems Musculoskeletal MS: Swelling in Back MS Remarks back pain (Daniela Montano) Objective Data Data 12/31/16 01/01/17 19:00 07:00 Intake Total 240 ml 960 ml Output Total 0 ml Balance 240 ml 960 ml Intake Oral 240 ml 960 ml Output Stool Total 0 ml # Voids 3 4 Vital Signs Date Time Temp Pulse Resp B/P Pulse Ox O2 Delivery O2 Flow Rate FiO2 01/01/17 08:00 96.8 93 20 126/75 94 01/01/17 04:00 97.2 98 18 127/79 94 01/01/17 00:00 97.8 98 18 139/77 94 12/31/16 20:30 97.4 97 18 155/86 95 12/31/16 16:00 97.1 94 18 145/84 94 (Daniela Montano) -: 01/01/17 0554 01/01/17 0554 Imaging Last 72 hours Impressions Lung Biopsy CT 12/31/16 0716 Signed Impressions: Service Date/Time: Saturday, December 31, 2016 08:29 - CONCLUSION: Uncomplicated CT guided biopsy of the right lung mass. Preliminary pathology interpretation is a cellular specimen.. John Bravo MD FACR Chest X-Ray 12/31/16 0000 Signed Impressions: Service Date/Time: Saturday, December 31, 2016 10:55 - CONCLUSION: There is no pneumothorax. John Bravo MD FACR Chest CT 12/30/16 0000 Signed Impressions: Service Date/Time: Friday, December 30, 2016 19:08 - CONCLUSION: 1. Large right lower lobe mass extending into the hilum. 2. Numerous bilateral metastatic pulmonary nodules. 3. Metastatic adenopathy in the right peritracheal and subcarinal regions. There is also superior mediastinal adenopathy and left axillary adenopathy. Milan Mccallum MD Brain MRI 12/30/16 0000 Signed Impressions: Service Date/Time: Friday, December 30, 2016 19:22 - CONCLUSION: 1. Minimal nonspecific white matter changes. 2. No definite metastatic disease. Milan Mccallum MD Abdomen/Pelvis CT 12/30/16 0000 Signed Impressions: Service Date/Time: Friday, December 30, 2016 19:08 - CONCLUSION: 1. Right lower lobe mass and numerous bilateral pulmonary nodules. 2. There are prominent lymph nodes in the region of the dacia hepatis presumed metastatic. 3. The remainder of the abdomen/pelvis is otherwise unremarkable. Milan Mccallum MD (Daniela Montano) Physical Exam General Appearance: Well Developed, Well Nourished, No Acute Distress (Daniela Montano) Neck Neck Exam: Neck Supple (Daniela Montano) Pulmonary Resp Exam: Clear Bilaterally, Breath Sounds Equal (Daniela Montano) Cardiology CV Exam: Regular, Normal Sinus Rhythm (Daniela Montano) Gastrointestinal/Abdomen GI Exam: Soft, Non-Tender (Daniela Montano) Musculoskeletal MS Exam: Normal Gait, Normal Tone, Good Strength (Daniela Montano) Integumentary Skin Exam: Warm, Dry (Daniela Montano) Extremeties Extremities Exam: No Edema, Pedal Pulses Palpable (Daniela Montano) Neurologic Neuro Exam: Alert, Awake, Oriented, Speech Clear, Moving All Extremities ( Daniela Montano) Psychiatric Psych Exam: Appropriate Responses (Daniela Montano) Assessment/Plan Discussed Condition With: Patient Assessment Summary: TAVO/Acute Renal Failure Problem List: (1) Acute renal failure Plan: in a pt with apparent normal renal function at baseline his renal function has improved since arrival TAVO suspected from NSAID use UA is benign taper off IVF he is stable form renal perspective calcium is better stop all non essential medications including Protonix we will sign off, please call us if needed (2) Melanoma Plan: oncology following s/p lung biopsy appreciate further recommendations (Daniela Montano) Plan patient was seen and examined. Renal function has improved. Patient was advised to avoid NSAIDs. We will sign off. (Kirby Taylor MD) Daniela Montano Jan 01, 2017 12:09 Kirby Taylor MD Jan 02, 2017 16:54
--- NOTE | 2017-01-01 14:56 | MB ---
cc: QIANA BLACK MD,ZINA COMBS,MACIEJ MELCHOR M.D. DATE OF CONSULTATION: 12/31/2016 DATE OF : [address] Zina Ng DIAGNOSIS Metastatic carcinoma, unknown type at the present time, stage IV. CHIEF COMPLAINT Lower back pain. REASON FOR CONSULTATION The patient is being evaluated for palliative radiotherapy treatment options to the spine. HISTORY OF PRESENT ILLNESS This is a 56-year-old male, past smoker, who states he stopped smoking about a year and a half ago and smoked for 25 years. The patient has a history of melanoma excised from the right lower leg. It appears that about two or three weeks ago the patient was taking some hogs to market, was manipulating the hogs in order to go into a chute, lifted a hog by the tail and heard a crack in his back. Following this he had several attempts to relieve the pain by a chiropractic doctor and also visited urgent care. Since the patient did not obtain resolution of the pain he was evaluated by his primary care physician who ordered an MRI. The MRI detected a pathological fracture. The patient was recently evaluated by Dr. Ng and admitted into the hospital for intractable pain. Of note the same day of the MRI the patient also had a chest x-ray which showed a lung mass. I discussed his case today with Dr. Combs as well as Dr. Ng. A consult has been placed for me to discuss palliative radiotherapy treatment options. PAST MEDICAL HISTORY As above. Chronic low back pain since 1989. Benign cyst removed from the skin. MEDICATIONS 1. MiraLax. 2. Protonix. 3. Versed. 4. Fentanyl. 5. Celebrex. 6. Percocet. 7. Bowman. ALLERGIES PEN-VEE K. FAMILY HISTORY Family history of skin cancer and prostate carcinoma. Brother with prostate carcinoma. SOCIAL HISTORY The patient smoked a pack of cigarettes per day for 25 years, quit about a year and a half ago. Alcohol intake socially. REVIEW OF SYSTEMS CONSTITUTIONAL: The patient admits to about a 20-pound weight loss in the last few weeks. ALLERGIES: Has not had an allergic reaction recently. EYES: Unremarkable. ENT: Unremarkable. Denies any pain or difficulty in swallowing. NECK: Unremarkable. Denies any neck masses. INTEGUMENTARY: Unremarkable. Denies any itching, rash or hives. CARDIOVASCULAR: Unremarkable. Denies any chest pain or clinical signs of HI. RESPIRATORY: Unremarkable. Denies any hemoptysis or wheezing. GASTROINTESTINAL: Unremarkable. Denies any abdominal pain or rectal bleeding. GENITOURINARY: Unremarkable. Denies any hematuria. MUSCULOSKELETAL: Lower back pain which has increased in the last few weeks. The patient admits to hearing a crack when he lifted a hog by the tail. NEUROLOGIC: The patient admits to weakness of the right lower extremity as well as numbness of the right leg. PSYCHIATRIC: Denies any suicidal thoughts or depression. ENDOCRINE: Unremarkable. HEMATOLOGIC: Unremarkable. DERMATOLOGIC: History of melanoma in situ of the right leg. PHYSICAL EXAMINATION GENERAL: The patient is oriented x3, in some distress due to the lower back pain and inability to walk fully due to pain. He rates his pain about 7-8/10. VITAL SIGNS: Temperature 97.1, pulse 94, respiratory rate 18, blood pressure 113/79, pulse ox 94%. LUNGS: To auscultation bilateral lungs have decreased ventilatory respiratory effort, perhaps more marked in the right lung midportion towards the inferior portion of the lung. There is also minimal wheezing and crackles of the right lower lung. HEART: Regular rate and rhythm without murmurs. NECK: Palpation of the neck and bilateral supraclavicular areas are free. NEUROLOGIC: There is weakness of the right lower extremity, numbness from the knee down on the right side. Proprioception appears to be preserved. The patient says his toes are numb also. The patient is unable to move his right leg due to pain, unable to walk properly. No other positive findings. PATHOLOGY Surgical pathology is pending. RADIOLOGY CT of the chest 12/30/2016, Impression: Large right lower lobe mass extending into the hilum. Numerous bilateral metastatic pulmonary nodules. Metastatic adenopathy in the right peritracheal and subcarinal regions. There is also superior mediastinal adenopathy and left axillary adenopathy. Brain MRI 12/30/[address] reviewed. Abdomen and pelvis CT scan 12/30/2016, Impression: Right lower lobe mass and numerous bilateral pulmonary nodules. There are prominent lymph nodes in the region of the dacia hepatis. The remainder of the abdomen and pelvis is otherwise unremarkable. MRI of the lumbar spine 12/23/2016, Impression: Focal bone lesions at L3, S1, and possibly T12 levels concerning for metastatic disease. There is edema and collapse of the central aspect of L4 vertebral body concerning for pathological fracture. There does appear to be some extension between the vertebral body margin and the posterior right lateral aspect of L4 vertebral body, all concerning for metastatic disease. There is posterior bulging of the L4 vertebral body secondary to fracture causing moderate impression of the thecal sac with a small amount of CSF seen on the nerve roots at this level. Asymmetric mild disc bulging worse on the right at the L5-S1 level with a mild impression on the anterior thecal sac and neural foramina bilaterally being worse on the right. Chest x-ray 12/23/2016 reviewed. ASSESSMENT A 56-year-old white male with the diagnosis of metastatic disease, unknown primary. The patient is being evaluated for palliative radiotherapy treatment options. PLAN I had an extensive discussion with the patient in regards to his presenting condition. I reviewed the MRI of the lumbar spine as well as CT of the chest, MRI of the brain and CT of the abdomen and pelvis. I have discussed this case personally with Dr. Ng yesterday and today as well as Dr. Combs today. We are all in agreement that the patient would be better served due to his young age and possibility of doing well with chemotherapy to stabilize the L4 vertebral body and decompress the thecal sac. The patient already has paresthesia of the right leg as well as inability to move the right leg due to pain. I think this will greatly improve the quality of life and the performance status of the patient and therefore his ability to tolerate chemotherapy. The patient understands that following the surgery he will need radiation therapy and that I will await six weeks for healing and will have to coordinate with Dr. Ng in order to provide the radiation therapy in between cycles of chemotherapy. I discussed the merits as well as the purpose as well as side effects and complications of radiation, to include but not limited to weakness and fatigue, decreased blood counts, edema of the skin, necrosis of the skin, nausea, vomiting, diarrhea, bone damage, spinal cord damage, pain of the treated area, kidney damage, bowel perforation which could lead to and bowel adhesions and nerve damage. After a thorough discussion the patient wanted to proceed forward with palliative radiotherapy when appropriate. I will have the patient return to my office in about two weeks as an outpatient so we can discuss how to proceed. The patient was advised if I could be of any further assistance to please let me know, otherwise will proceed as above. Dr. Ng, thank you very much for placing this consult and allowing me to participate in the care of your patient. Should you have any further questions or concerns, please do not hesitate to contact me. MD FELIPE Barkley/DUSTIN /5:36 PM /2:16 PM MTDLiliana
--- NOTE | 2017-01-01 15:11 | HHI.NSPN ---
(Kanika Avila) Note Status Status: Progress Note (Kanika Avila) Interval History Interval History Mr. Mae is a 56 year old male who complains of severe lumbar pain and right lower extremity pain. Mr. Mae reports he has a history of chronic back pain but recently severely worsened. He complains his pain is in the lumbar region and radiates down his right lower extremity posterolaterally to the top of the foot. He rates the pain as a 9/10. He has difficulty walking due to the severity of the pain and is requiring a walker to ambulated. He has some gross proximal right leg weakness. He denies bowel or bladder incontinence. He underwent an MRI of the lumbar spine outpatient. This was reviewed and showed bony lesions at L3, S1, and pathological compression fracture of L4 causing stenosis at L4-5. A CT Chest reveals a large lung mass. He was directly admitted to the hospital by Dr. Ng. A neurosurgical evaluation was requested. 01/01: unchanged severe lumbar and right leg pain (Kanika Avila) Labs, Micro, & Vital Signs Results Date Time Temp Pulse Resp B/P Pulse Ox O2 Delivery O2 Flow Rate FiO2 01/01/17 12:00 96.6 90 20 138/78 95 01/01/17 08:00 96.8 93 20 126/75 94 01/01/17 04:00 97.2 98 18 127/79 94 01/01/17 00:00 97.8 98 18 139/77 94 12/31/16 20:30 97.4 97 18 155/86 95 12/31/16 16:00 97.1 94 18 145/84 94 01/01/17 07:00 Intake Total 1200 ml Output Total 0 ml Balance 1200 ml Constitutional Vital Signs Date Time Temp Pulse Resp B/P Pulse Ox O2 Delivery O2 Flow Rate FiO2 01/01/17 12:00 96.6 90 20 138/78 95 01/01/17 08:00 96.8 93 20 126/75 94 01/01/17 04:00 97.2 98 18 127/79 94 01/01/17 00:00 97.8 98 18 139/77 94 12/31/16 20:30 97.4 97 18 155/86 95 12/31/16 16:00 97.1 94 18 145/84 94 01/01/17 07:00 Intake Total 1200 ml Output Total 0 ml Balance 1200 ml (Kanika Avila) Review of Systems/Exam Exam Mr. Mae is alert and oriented x 3. Speech is appropriate. Cranial nerve examination: pupils to be equal, round, and reactive to light. Extra-ocular movements are intact. Facial motor are normal and symmetrical. Muscle strength is 5/5 in all muscle groups of both upper extremities including deltoid, biceps, triceps and cafeteria director. In the lower extremities, strength is 4/5 right iliopsoas, quads, hamstring with complaints of pain, 5/5 left iliopsoas, quadriceps, hamstrings, bilateral plantar flexion, dorsiflexion, and extensor hallicus longus. Sensory examination is intact to light touch in both the upper and lower extremities, symmetrically. Deep tendon reflexes are 2+ and symmetrical in the biceps, triceps, and brachioradialis, bilaterally, in the upper extremities. In the lower extremities , the patellar and Achilles are 2+, bilaterally. There is a bilateral plantar flexion response. Hoffmanns sign is negative. There is no clonus. Cerebellar examination is intact to [id number] test. (Kanika Avila) Medications Current Medications Current Medications Medications (Trade) Dose Ordered Sig/Nilo Route PRN Reason Start Time Stop Time Status Last Admin Dose Admin Senna/Docusate Sodium (Ese-Colace) 1 tab BID PRN PO CONSTIPATION 12/30/16 14:30 Polyethylene Glycol (Miralax) 17 gm DAILY PO 12/31/16 09:00 01/01/17 10:00 Magnesium Hydroxide (Milk Of Magnesia Liq) 30 ml DAILY PRN PO CONSTIPATION 12/30/16 14:30 Morphine Sulfate (Morphine Inj) 2 mg Q3H PRN IV PUSH BREAKTHROUGH PAIN 12/30/16 14:30 01/01/17 14:26 Oxycodone/ Acetaminophen (Percocet 10-325 Mg) 1 tab Q6H PRN PO PAIN SCALE 3 TO 6 12/30/16 18:15 Oxycodone/ Acetaminophen (Percocet 10-325 Mg) 2 tab Q6H PRN PO PAIN SCALE 7 TO 10 12/30/16 18:15 01/01/17 13:15 Famotidine 20 mg 20 mg BID PO 12/31/16 21:00 01/01/17 10:00 Sodium Chloride (NS 1000 ml Inj) 1,000 ml @ 42 mls/hr [id number] IV 01/01/17 08:30 Ondansetron HCl 4 mg 4 mg Q6HR PRN IV PUSH NAUSEA OR VOMITING 01/01/17 11:30 01/01/17 11:46 Sodium Chloride (NS 1000 ml Inj) 1,000 ml @ 100 mls/hr Q10H IV 01/01/17 23:00 Chlorhexidine Gluconate (Hibiclens 4% Top Soln) 1 applic HS TOP 01/01/17 21:00 01/02/17 21:01 (Kanika Avila) Medical Decision Making MDM Remarks 56 y/o male with intractable lumbar and radiculopathy, spine metastases, L4 fracture with retropulsion and canal stenosis large lung mass s/p needle biopsy, pathology pending (Kanika Avila) Plan Plan Remarks MRI L spine with contrast today persistent intractable lumbar and radicular pain to OR for ORIF L4 fracture tomorrow NPO tonight (Kanika Avila) Attending Statement I have discussed the details including the [id number] details of the surgical procedure, its indications, alternatives, risks, and potential complications. Risks and potential complications include, but are not limited to, infection, blood loss, CSF leak, partial or complete loss of sight in one or both eyes, paresis, paralysis, permanent pain or difficulty swallowing, loss of bowel or bladder function, complications from anesthesia, blood clot, stroke, myocardial infarction, or even . The exam, history, and the medical decision-making described in the above note were completed with the assistance of the mid-level provider. I reviewed and agree with the findings presented. I attest that I had a [id number] encounter with the patient on the same day, and personally performed and documented my assessment and findings in the medical record. (Ricki Combs MD) Kanika Avila Jan 01, 2017 15:11 Ricki Combs MD Jan 04, 2017 19:25
[2017-01-01 16:00] VITALS: BP 152/86; PULSE 88; RESP 16; O2SAT 93
[2017-01-01] MEDS ORDERED: GADODIAMIDE PF 287 MG/ML 20 ML VIAL (for RAD MRI) IV ONE (16:56)
--- NOTE | 2017-01-01 18:01 | RADRPT ---
EXAM DATE/TIME: 01/01/2017 16:32 [facility] COMPARISON: No previous studies available for comparison. [facility], MR LUMBAR SPINE W/O CONTRAST, December 23, 2016 INDICATIONS : Mass. Metastatic disease. CONTRAST: 20 cc Omniscan (gadodiamide) IV MEDICAL HISTORY : Carcinoma, lung. SURGICAL HISTORY : Melanoma removed. ENCOUNTER: Subsequent ACUITY: 3 day PAIN SCORE: 5/10 LOCATION: Back. TECHNIQUE: Multiplanar multisequence MRI of the lumbar spine was performed with and without contrast. FINDINGS: The most caudal appearing lumbar vertebra is numbered as L5. VERTEBRAE: There is a marrow replacing process involving the L4 vertebra associated with significant pathologic collapse. There is about 50% loss of central vertebral body height. There is some degree of bony retr opulsion and also some dorsal soft tissue component in the anterior epidural space. This produces mod erately severe canal stenosis at this level with AP dimension of the canal reduced to about 7-8 mm. T here is asymmetric extension of abnormal signal and enhancement into the pedicles, right worse than l eft. Marrow signal is elsewhere homogeneous and benign. Canal is otherwise satisfactory. CONUS: Normal level and configuration. POST CONTRAST: See above T12-L1: The thecal sac has a normal diameter. No evidence of disc bulge or protrusion. The neural foramina are patent bilaterally. L1-L2: The thecal sac has a normal diameter. No evidence of disc bulge or protrusion. The neural foramina are patent bilaterally. L2-L3: The thecal sac has a normal diameter. No evidence of disc bulge or protrusion. The neural foramina are patent bilaterally. L3-L4: The thecal sac has a normal diameter. No evidence of disc bulge or protrusion. The neural foramina are patent bilaterally. L4-L5: The thecal sac has a normal diameter. No evidence of disc bulge or protrusion. The neural foramina are patent bilaterally. L5-S1: There is mild annular disc bulge with broad undulating superimposed dorsal disc protrusion at L5-S1 w ith a mild degree of associated foraminal stenosis, left worse than right. CONCLUSION: Presumed metastatic disease with pathologic fracture at L4. Moderate associated canal stenosis. Konstantin Bingham MD on January 01, 2017 at 17:53 Board Certified Radiologist. This report was verified electronically.
[2017-01-01 20:00] VITALS: BP 136/74; PULSE 98; RESP 16; TEMP 97; O2SAT 95
[2017-01-01] MEDS ORDERED: CHLORHEXIDINE GLUCONATE 4% SOLN 120 ML BTL TOP SCH (21:00)
[2017-01-02] VITALS (8 sets, daily range): BP systolic 119–142; BP diastolic 62–74; PULSE 82–107; RESP 16–18; TEMP 97.9–98.6; O2SAT 92–97
[2017-01-02] MEDS: MORPHINE SULFATE 4 MG/ML INJ IV PUSH PRN (03:40)
[2017-01-02] MEDS ORDERED: VANCOMYCIN INJ 1,000 MG in SODIUM CHLOR 0.9% 250 ML INJ 250 ML IV SCH (06:00)
[2017-01-02 06:22] LABS: AUTOMATED NEUTROPHIL # 16.6 TH/MM3 (1.8-7.7); BASOPHIL # 0.2 TH/MM3 (0-0.2); BASOPHIL % 0.6 % (0.0-2.0); EOSINOPHIL # 9.3 TH/MM3 (0-0.4); EOSINOPHIL % 31.9 % (0.0-4.0); HEMATOCRIT 36.4 % (39.0-51.0); HEMO FLAGS DIFF FINAL; LYMPH % 5.9 % (9.0-44.0); LYMPHOCYTE # 1.7 TH/MM3 (1.0-4.8); MEAN CELL VOLUME 84.9 FL (80.0-100.0); MEAN CORPUSCULAR HEMOGLOBIN 27.6 PG (27.0-34.0); MEAN CORPUSCULAR HGB CONC 32.6 % (32.0-36.0); MONO % 4.7 % (0.0-8.0); NEUT % 56.9 % (16.0-70.0); PLATELET COUNT 393 TH/MM3 (150-450); RED BLOOD COUNT 4.28 MIL/MM3 (4.50-5.90); RED CELL DISTRIBUTION WIDTH 13.8 % (11.6-17.2); WHITE BLOOD COUNT 29.2 TH/MM3 (4.0-11.0)
[2017-01-02 06:55] LABS: BICARBONATE 26.8 MEQ/L (21.0-32.0); POTASSIUM 4.5 MEQ/L (3.5-5.1)
[2017-01-02] MEDS ORDERED: BUPIVACAINE/EPINEPHRINE 0.5% PF 30 ML VIAL ONE (06:58)
[2017-01-02] MEDS ORDERED: GENTAMICIN SULFATE 80 MG/2 ML VIAL ONE ×2 (06:58→14:23)
[2017-01-02] MEDS ORDERED: GELFOAM SIZE 100 ONE (06:58)
[2017-01-02] MEDS ORDERED: THROMBIN (TOPICAL) 5,000 UNIT VIAL ONE ×2 (06:58→07:08)
[2017-01-02] MEDS ORDERED: GELATIN POWDER 1 GM PACKET ONE (07:08)
[2017-01-02] MEDS ORDERED: ACETAMINOPHEN 1000 MG/100 ML VIAL IV ONE (08:04)
[2017-01-02] MEDS ORDERED: ARTIFICIAL TEARS OPTH OINT 3.5 APPLIC/3.5 GM TUBO ONE (08:04)
[2017-01-02] MEDS ORDERED: fentaNYL CITRATE 250 MCG/5 ML AMP ONE ×2 (08:05→12:15)
[2017-01-02] MEDS ORDERED: MIDAZOLAM HCL 2 MG/2 ML VIAL ONE (08:05)
[2017-01-02] MEDS ORDERED: HYDROmorphone HCL PF 2 MG/ML VIAL ONE (08:05)
[2017-01-02] MEDS ORDERED: FAMOTIDINE 20 MG/2 ML VIAL ONE (08:05)
[2017-01-02] MEDS ORDERED: BUPIVACAINE/EPINEPHRINE 0.5% PF 30 ML VIAL INFIL ONE (09:56)
[2017-01-02] MEDS ORDERED: THROMBIN (TOPICAL) 5,000 UNIT VIAL TOP ONE (09:56)
[2017-01-02] MEDS ORDERED: BUPIVACAINE LIPOSOME PF 1.3% 20 ML VIAL INFIL ONE (09:56)
[2017-01-02] MEDS ORDERED: GELFOAM SIZE 100 TOP ONE (09:56)
[2017-01-02] MEDS ORDERED: SODIUM CHLORID 0.9% 500 ML INJ 500 ML IV ONE (12:00)
[2017-01-02] MEDS ORDERED: NORMOSOL R INJ 2,000 ML IV ONE (12:00)
[2017-01-02] MEDS ORDERED: LACTATED RINGER'S 1000 ML INJ 2,000 ML IV ONE (12:00)
[2017-01-02] MEDS ORDERED: ONDANSETRON HCL 4 MG/2 ML VIAL IV PUSH ONE (12:00)
[2017-01-02] MEDS ORDERED: PROPOFOL 200 MG/20 ML AMP IV ONE (12:00)
[2017-01-02 13:49] LABS: BLOOD GAS BASE EXCESS -1.5 mmol/L (-2-2); BLOOD GAS CARBOXYHEMOGLOBIN 1.7 % (0-4); BLOOD GAS HCO3 23 mmol/L (22-26); BLOOD GAS METHEMOGLOBIN 1.3 % (0-2); BLOOD GAS O2 HGB SATURATION 96 % (90-100); BLOOD GAS OXYGEN CONTENT 14.3 Vol % (12.0-20.0); BLOOD GAS PCO2 40 mmHg (38-42); BLOOD GAS PO2 165 mmHg (61-120); BLOOD GAS TOTAL HGB 10.3 G/DL (12.0-16.0); CRITICAL VALUE NO; OXYGEN DEVICE OR; STAT YES; TEMP CORR TO 98.6
[2017-01-02 13:50] LABS: HEMATOCRIT 31.2 % (39.0-51.0); REVIEW FLAG FINAL
--- NOTE | 2017-01-02 14:05 | PD.OP ---
Operative Report Date of Surgery: Jan 02, 2017 Preoperative Diagnosis: Pathological L4 burst fracture Postoperative Diagnosis: metastatic non small cell Ca. Pathological L4 burst fracture Procedure: L4 corpectomy, open reduction of pathological fracture with resection of metastatic carcinoma, L2 to L4 posterolateral fusion and autologous bone graft, L2 to L4 segmental instrumental fixation using transpedicular screws and rods, microsurgical dissection Anesthesia: general Surgeon: Ricki Combs Film Numberer(s): Kimi Jonas Operation and Findings: INDICATIONS FOR THE SURGICAL PROCEDURE Mr Mae is a 56 year-old male who presented with severe mechanical back pain related to a spinal fracture. He had a severe pathological fracture of L4 and failed medical nonsurgical management. A surgical decompression with reduction of the fracture and arthrodhesis were indicated as the most appropriate treatment. The [id number] details of the procedure, indications, alternatives, risks and potential complications were fully discussed with the patient. The patient fully understood. All questions were answered. No guarantees were given. The patient voiced requesting the procedure and provided informed consents. The patient had been offered the alternative of delaying the procedure and continuing with nonsurgical management. DETAILS OF THE SURGICAL PROCEDURE Prior to the procedure, the surgical incision was marked in the preoperative surgical holding room, and the procedure, risks, and potential complications revisited with the patient. Placement of electrodes for intraoperative neurophysiological monitoring was completed. The patient was taken to the operative room, and following induction of general anesthesia, endotracheal intubation was performed. A Kidd catheter, bilateral EDWIN hose and sequential compression devices were placed and kept throughout the procedure. The patient was positioned prone, over a Josh table over a José frame. All pressure in the preoperative surgical holding room points were carefully padded with eggcrate and gel mattress. The eyes were tapped shut after ointment was applied by the anesthesiologist to prevent corneal abrasion. A Gabriella hugger was placed over the expossed lower body to maintain control of the core body temperature. The electrophysiological team placed the needles and electrodes in their proper location and baseline SSEP's and motor evoked potentials were registered prior and following the positioning. The entrance to each pedicles was marked using a C arm. The lumbar region was prepped and draped in the usual sterile fashion. The surgical procedure was performed in several steps as follow: SURGICAL APPROACH Once the patient was positioned, a localizing cross-table lateral x-ray was performed with a C-arm. Two paramedian small incisions were outlined on the skin approximately 3cm from the midline. The skin incisions were made with a # 10 blade. Small bleeders were controlled with the cautery. The dissection was then carried out into deper planes and through the thoracolumbar fascia with a Bovie. The intermuscular septum was identified and the myscles were blunted dissected along the septum. The facets and transverse process of L3, L4, L5 were exposed and the proper anatomical landmarks were identified. A microsurgical self-retaining retractor was placed on the incision, and a localizing lateralizing cross-table x-ray was performed with an instrument underneath a lamina of the lumbar spine. There was a bilateral pars defect with gross instability of the bony structures. INSTRUMENTAL FIXATION At this point in the procedure, placement of bilateral transpedicular screws was necessary for stabilization of the spine. Initially, the entry point for the screw was selected anatomically at the junction of the facet, with the transverse process, and the pars interarticularis at L5 and at the sacrum. This was started with a Giamshetti needle, followed by the use of an akins wire, and then a tap was used to create the threads for the screws. Finally bilateral transpedicular screws were carefully placed bilaterally at L3, L4 on the left, and L5 under fluoroscopic visualization. An appropriate purchase was achieved with all screws. The position of each screw was assessed anatomically with an AP , lateral, oblique Xrays. An intraoperative scan view of the spine was then performed using the iso-centric c-arm. Each screw was then assessed electrophysiologically with a nerve stimulator. SURGICAL DECOMPRESSION/open reduction of the fracture There was significant mass effect with compression of the neural structures by retropulsed bone fragments and tumor. In order to relieve neural compression, it was necessary to perform a decompressive laminectomy, with decompression of the spinal canal and nerve root At this point of the procedure the operative microscope was draped in the usual sterile fashion and brought to the field. The rest of the surgical procedure was performed using microdissection technique with the exception of the closure. Under the operating microscope, a decompressive laminectomy was carried out at L3-L4 and L4-5 as follow: The laminae, base of the spinous processes and facets were carefully drilled exposing the ligamentum flavum. The facets were abnormal with severe facet arthropathy, vacuum facets, and mass effect over the neural structures. A broad protusion of bone and tumor was causing compression of the neural structures and exiting L4 and L5 nerve roots. A near complete facetectomy was necessary the right in order to approach the anterior epidural space further mechanical instability. The ligamentum flavum appeared hypertrophic, resulting on mass effect on the dorsal surface of the neural structures. The superior free border of the ligamentum flavum was elevated with a ligament dissector and the ligamentum flavum was removed with a 3 and 4 mm Kerrison forceps. The ligament was very adherent to the dural sac and during the dissection, ans extreme care was taken during the dissection. The exiting nerve roots were identified, and a wide foraminotomy was performed with a Kerrison in their trajectory towards the neural foramenat both levels. Epidural veins located laterally to the dural sac were coagulated with the bipolar cautery, and then incised using microscissors. Gentle medial retraction of the dural sac allowed me to expose the vertebral body L5. Then, the posterior longitudinal ligament was incised with an 11 blade and a decompression was carried out using pituitary forceps and curettes. There was extensive tumor and bone fragments which were sent to the pathology for histological analysis. A frozen section was reported as consistent with metastatic non-small cell carcinoma. The rest of the tissue was sent to the lab for permanent histological analysis. Upon completion , an excellent decompression of the neural structures was achieved. Posterolateral fusion Then, the lateral gutters of the spine, facets and transverse processes were carefully decorticated with a TPS drill in preparation for the posterior lateral fusion. The incision was thoroughly irrigated with antibiotic solution. The posterolateral fusion was performed by carefully packing the gutters of the spine with a allograft bone graft and demineralized bone matrix Completion of the Procedure The rods were brought to the field. Sequential application of the cap was achieved which allowed for further correction of the kyphosis. Final tightening of all screws was achieved with a torque wrench. The incision was thoroughly irrigated with several liters of antibiotic solution. The decompression was reassessed with an nerve hook and found to be appropriate. Seven mm Josh-Alexis drain was left on the epidural space and was then externalized through a separate stab incision. The incision was then closed in layers. 0 Vicryl with interrupted sutures were used to close the thoracolumbar fascia. The superficial fascia was closed with 0 Vicryl sutures. Three-0 Vicryl was used to close the subcutaneous tissue. The skin was closed with 4-0 running subcuticular Vicryl. Dermabond was applied to the skin. The drain was secured 3-0 nylon. At the end of the procedure the sponges, needles, and instrument counts were all correct. Estimated blood loss was 200 cc's. No complications occurred. The patient received prophylactic antibiotics. The patient was then extubated and transferred to the recovery room in stable condition. The entire procedure was performed using electrophysiological monitor of the electromyogram, evoked potential and sphincters. No intraoperative abnormalities were detected. Ricki Combs MD Jan 02, 2017 14:05
[2017-01-02] MEDS ORDERED: ACETAMINOPHEN 325 MG TAB PO PRN (14:15)
[2017-01-02] MEDS ORDERED: SODIUM CHLORIDE 0.9% FLUSH 5 ML FLUSH IVF PRN (14:15)
[2017-01-02] MEDS ORDERED: ceFAZolin 2 GM PREMIX 50 ML IV SCH (14:15)
[2017-01-02] MEDS ORDERED: NALOXONE HCL 0.4 MG/ML AMP IV PRN ×3 (14:15→17:45)
[2017-01-02] MEDS ORDERED: MORPHINE SULFATE 4 MG/ML INJ IV PUSH PRN ×2 (14:15)
[2017-01-02] MEDS ORDERED: diphenhydrAMINE HCL 50 MG/ML VIAL IV PRN ×3 (14:15→17:45)
[2017-01-02] MEDS ORDERED: DO NOT ADM ANY ANTICOAGULANT DRUGS PRN (14:45)
[2017-01-02] MEDS: NS + KCL 20 MEQ INJ 1,000 ML IV SCH (15:00)
--- NOTE | 2017-01-02 15:16 | PD.CONS ---
[facility] Service Critical Care Medicine Consult Requested By Dr. Combs Reason for Consult Critical care management Primary Care Physician Sherin Vizcaino MD History of Present Illness 56-year-old male. Date of admission 12/30/2016. Date of consult 2016. Asked medical history includes chronic low back pain requiring TATO 1 and melanoma in situ status post excision 2012. Patient was in normal state of health until 10/10 when he developed acute low back pain. He proceeded to a care facility was treated with Advil without success. He is also seen a chiropractor for relief. He used Advil 200 milligrams four pills 3x a day for the past 4-5 weeks in order to control the pain. He recently saw his primary care physician, Dr. Sherin Vizcaino. Dr. Vizcaino ordered an MRI of the lumbar spine on 2016without contrast. He was found to have a focal bone lesion at L3, S1 and possibly T12. There was edema and around 50% collapse of the central aspect of the L4 vertebral which appeared pathologic. There was extension beyond the vertebral body margin at the posterior right lateral aspect of the L4 vertebral body. The bulging of the L4 vertebral body caused a moderate impression on the thecal sac. A Chest x-ray which showed an abnormal density, measuring 7.8 cm in the posterior and medial right mid lung field. Patient was a direct admit on 12/30/16 underlying pain speed workup. He is also noted to be taken to the creatinine of 3. This is thought to be secondary to NSAID usage. Seen by wet primer powder blender hospitalization and receiving IV fluids. Creatinine currently 1.2. At this facility, patient received the following imaging MRI L-spine - L4 marrow replacing process with pathologic collapse 50% loss of vertebral height. Bony retropulsion of the anterior epidural space. Severe canal stenosis7 to [address] chest - right lower lobe 9.9 x 6.7 cm mass encasing the right lower lobe with significant bilateral nodules large in size 2.1 mm left lower lobe. Patient also with significant subcarinal,'s sperm mediastinal and left axillary lymphadenopathy. 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 Today, patient after creatinine is stabilized underwent ORIF of his L4 fracture with L2 through S1 posterior lateral fixation with pedicle screws and rods by Dr. Combs 29 are grossly. 350 EBL. 600 cc urine output. Patient currently has 1 HALEY with bloody drainage. Currently seen in PACU nasal cannula. Review of Systems ROS Limitations: Altered Mental Status Past Family Social History Allergies: Coded Allergies: Penicillin (Verified Allergy, Severe, HIVES IN THROAT, CAN'T BREATHE, 12/11) Past Medical History Chronic low back pain History melanoma Past Surgical History 3 under arm/left shoulder nodule removal - hyperhidrosis? History of melena right leg status post shave excision Reported Medications Advil when necessary Active Ordered Medications Reviewed in EMR Family History Mother microinfarction. Follow history of coronary bypass, kidney failure, skin cancer and prostate cancer One brother with CABG/stroke. One brother with prostate cancer. Social History 30-ppic-urbl tobacco. Quit 1 month ago. 4-5 beers on the weekend. No IV drug use documented Physical Exam Vital Signs Vital Signs Date Time Temp Pulse Resp B/P Pulse Ox O2 Delivery O2 Flow Rate FiO2 01/02/17 08:00 98.6 103 16 119/62 92 01/02/17 05:52 98.2 107 17 139/73 93 01/02/17 04:00 98.0 100 17 142/74 93 01/02/17 00:00 98.1 107 17 130/72 93 01/01/17 20:00 97.0 98 16 136/74 95 01/01/17 18:31 16 01/01/17 18:30 16 01/01/17 16:00 88 16 152/86 93 Physical Exam GENERAL: 56-year-old male, appears critically ill age currently resting in bed in no acute distress SKIN: Warm and dry. No rash HEAD: Atraumatic. Normocephalic. EYES: Pupils equal and round about 3 mm bilaterally and reactive. No scleral icterus. No injection or drainage. ENT: No nasal bleeding or discharge. Mucous membranes pink and moist. NECK: Trachea midline. No JVD. CARDIOVASCULAR: Regular rate and rhythm. S1, S2. No S4. RESPIRATORY: Clear to auscultation. Breath sounds equal bilaterally. The magical excursion GASTROINTESTINAL: Abdomen soft, non-tender, obese. Hypoactive bowel sounds MUSCULOSKELETAL: Extremities without significant peripheral edema. No obvious deformities. NEUROLOGICAL: Arousable but falls asleep. Currently under sedation. Not following commands. Withdraws to pain all 4 extremities. Currently with a Guedel airway in place with nasal cannula via mouth Laboratory Laboratory Tests Test 01/02/17 01/02/17 01/02/17 01/02/17 06:10 08:34 10:07 13:35 White Blood Count 29.2 Red Blood Count 4.28 Hemoglobin 11.8 Hematocrit 36.4 Mean Corpuscular Volume 84.9 Mean Corpuscular Hemoglobin 27.6 Mean Corpuscular Hemoglobin 32.6 Concent Red Cell Distribution Width 13.8 Platelet Count 393 Mean Platelet Volume 6.9 Neutrophils (%) (Auto) 56.9 Lymphocytes (%) (Auto) 5.9 Monocytes (%) (Auto) 4.7 Eosinophils (%) (Auto) 31.9 Basophils (%) (Auto) 0.6 Neutrophils # (Auto) 16.6 Lymphocytes # (Auto) 1.7 Monocytes # (Auto) 1.4 Eosinophils # (Auto) 9.3 Basophils # (Auto) 0.2 CBC Comment DIFF FINAL Differential Comment Sodium Level 136 Potassium Level 4.5 Chloride Level 100 Carbon Dioxide Level 26.8 Anion Gap 9 Blood Urea Nitrogen 20 Creatinine 1.19 Estimat Glomerular Filtration 63 Rate Random Glucose 93 Calcium Level 10.2 Blood Type A NEGATIVE A NEGATIVE Antibody Screen NEGATIVE Crossmatch Leukocyte-Reduced Red Blood Cells Blood Bank Comment Blood Gas Puncture Site DRAWN IN OR Blood Gas Patient Temperature 98.6 Blood Gas HCO3 23 Blood Gas Base Excess -1.5 Blood Gas Oxygen Saturation 96 Arterial Blood pH 7.38 Arterial Blood Partial 40 Pressure CO2 Arterial Blood Partial 165 Pressure O2 Arterial Blood Oxygen Content 14.3 Arterial Blood 1.7 Carboxyhemoglobin Arterial Blood Methemoglobin 1.3 Blood Gas Hemoglobin 10.3 Oxygen Delivery Device OR Test 01/02/17 13:38 Hemoglobin 10.4 Hematocrit 31.2 Result Diagram: 01/02/17 1338 01/02/17 0610 Imaging Last Impressions Lumbar Spine MRI 01/01/17 0000 Signed Impressions: Service Date/Time: December 16:32 - CONCLUSION: Presumed metastatic disease with pathologic fracture at L4. Moderate associated canal stenosis. Konstantin Bingham MD Lung Biopsy CT 12/31/16 0716 Signed Impressions: Service Date/Time: Saturday, December 31, 2016 08:29 - CONCLUSION: Uncomplicated CT guided biopsy of the right lung mass. Preliminary pathology interpretation is a cellular specimen.. John Bravo MD FACR Chest X-Ray 12/31/16 Signed Impressions: Service Date/Time: Saturday, December 31, 2016 10:55 - CONCLUSION: There is no pneumothorax. John Bravo MD FACR Chest CT 12/30/16 Signed Impressions: Service Date/Time: Friday, December 30, 2016 19:08 - CONCLUSION: 1. Large right lower lobe mass extending into the hilum. 2. Numerous bilateral metastatic pulmonary nodules. 3. Metastatic adenopathy in the right peritracheal and subcarinal regions. There is also superior mediastinal adenopathy and left axillary adenopathy. Milan Mccallum MD Brain MRI 12/30/16 Signed Impressions: Service Date/Time: Friday, December 30, 2016 19:22 - CONCLUSION: 1. Minimal nonspecific white matter changes. 2. No definite metastatic disease. Milan Mccallum MD Abdomen/Pelvis CT 12/30/16 Signed Impressions: Service Date/Time: Friday, December 30, 2016 19:08 - CONCLUSION: 1. Right lower lobe mass and numerous bilateral pulmonary nodules. 2. There are prominent lymph nodes in the region of the dacia hepatis presumed metastatic. 3. The remainder of the abdomen/pelvis is otherwise unremarkable. Milan Mccallum MD Assessment and Plan Assessment and Plan Neuro/Psych: Postop day #0 ORIF L4 fracture with L2/S1 posterolateral fixation with pedicle screws and rods secondary to L4 vertebral fracture with severe canal stenosis Dr. 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 See Hematology CT chest revealed a large 9.9 x 6.7 cm right lower lobe mass with lymphadenopathy encasing the right lower lobe( Nasal cannula to maintain saturations greater or equal to 92% Incentive spirometry while awake GI: Right lower lobe liver metastases 2.51.6 cm Advance diet as tolerated. Protonix for GI prophylaxis MiraLAX daily for bowel regimen : Kidd catheter has been placed for accurate I's and O's in a critically ill patient remove as clinically indicated Endo: Sliding-scale insulin if indicated Renal: Acute kidney injury secondary to NSAID usage - resolved Followed by nephrology Neo signed off. Creatinine currently 1.2. Monitor BMP in a.m. 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 Will need radiation therapy after chemotherapy initiated status post wound healing from surgical procedures above Followed by Dr. Fordcology and radiation oncology Monitor CBC daily. Follow trends ID: Postoperative antibiotics per neurosurgery. Ancef 2 g IV every 8 hours Monitor for signs and symptoms infection MSK: Chronic back pain PT evaluate and treat. Prior to OR decreased strengthpain right lower extremity FEN: Replace electrolytes is clinically indicated Currently on normal saline with 20 mEq of KCl 100 cc an hour Access - Utilize 2 right upper extremity peripheral IV. Central line if indicated - Left radial arterial line placed 01/02 in OR Prophylaxis - GI -currently not indicated - DVT - SCD/pharmacological prophylaxis when okay with neurosurgery Level III consult Code Status Full code Discussed Condition With SHIFT LAB TECHNICIAN. Care plan discussed all questions answered. Jason Quiroz MD Jan 02, 2017 15:16
[2017-01-02] MEDS ORDERED: HYDROmorphone HCL PCA 6 MG/30 ML IV SCH ×2 (17:45)
[2017-01-02] MEDS ORDERED: PCA - TOTAL MG DILAUDID DELIVERED PER SHIFT SCH ×2 (17:45→22:00)
--- NOTE | 2017-01-02 17:47 | RADRPT ---
EXAM DATE/TIME: 01/02/2017 09:13 [facility] COMPARISON: MRI LUMBAR SPINE W & W/O CONTRAST, January 01, 2017, 16:32. INDICATIONS : Laminectomy with screws and santi placement L3 to L5. MEDICAL HISTORY : Carcinoma, lung. SURGICAL HISTORY : Melanoma removed. ENCOUNTER: Subsequent ACUITY: 2 days PAIN SCORE: Non-responsive. LOCATION: Lumbar spine. FINDINGS: Transpedicular fixation is seen at L3 to L5. Alignment is anatomic in the AP and lateral projection. There is no pedicle screw in the L4 vertebral body on the right. John Bravo MD FACR on January 02, 2017 at 17:39 Board Certified Radiologist. This report was verified electronically.
--- NOTE | 2017-01-02 17:54 | EKG ---
Date Performed: 01/01/2017 Time Performed: 13:27:47 PTAGE: 56 years EKG: Sinus rhythm NORMAL ECG NO PREVIOUS TRACING DOCTOR: Nagi Ho Interpretating Date/Time 01/02/2017 17:52:26
[2017-01-02] MEDS: HYDROmorphone HCL PCA 6 MG/30 ML IV SCH (19:29)
[2017-01-02] MEDS: VANCOMYCIN 1,000 MG/NS 250 ML IV SCH ×2 (19:30)
[2017-01-02] MEDS: SODIUM CHLORIDE 0.9% FLUSH 5 ML FLUSH IVF SCH (20:15)
--- NOTE | 2017-01-02 20:27 | PD.ONC.PN ---
Subjective Subjective Remarks doing well post op. cheerful and states the pain down the leg is gone Objective Data Date Time Temp Pulse Resp B/P Pulse Ox O2 Delivery O2 Flow Rate FiO2 01/02/17 19:29 8 01/02/17 17:20 97.9 96 18 125/65 95 01/02/17 16:00 98.1 93 20 133/66 95 Nasal Cannula 4 01/02/17 15:45 97 18 137/70 95 Nasal Cannula 4 01/02/17 15:30 93 22 124/67 97 Nasal Cannula 4 01/02/17 15:15 89 20 138/69 96 Nasal Cannula 4 01/02/17 15:00 88 20 130/68 98 Nasal Cannula 4 01/02/17 14:53 98.1 92 20 128/69 100 Nasal Cannula 4 01/02/17 08:00 98.6 103 16 119/62 92 01/02/17 05:52 98.2 107 17 139/73 93 01/02/17 04:00 98.0 100 17 142/74 93 01/02/17 00:00 98.1 107 17 130/72 93 01/02/17 01/02/17 01/02/17 06:59 14:59 22:59 Intake Total 1400 ml 2900 ml 78 ml Output Total 950 ml 1200 ml Balance 1400 ml 1950 ml -1122 ml Result Diagram: 01/02/17 1338 01/02/17 0610 Laboratory Results Laboratory Tests Test 01/02/17 01/02/17 01/02/17 01/02/17 06:10 08:34 10:07 13:35 White Blood Count 29.2 TH/MM3 Red Blood Count 4.28 MIL/MM3 Hemoglobin 11.8 GM/DL Hematocrit 36.4 % Mean Corpuscular Volume 84.9 FL Mean Corpuscular Hemoglobin 27.6 PG Mean Corpuscular Hemoglobin 32.6 % Concent Red Cell Distribution Width 13.8 % Platelet Count 393 TH/MM3 Mean Platelet Volume 6.9 FL Neutrophils (%) (Auto) 56.9 % Lymphocytes (%) (Auto) 5.9 % Monocytes (%) (Auto) 4.7 % Eosinophils (%) (Auto) 31.9 % Basophils (%) (Auto) 0.6 % Neutrophils # (Auto) 16.6 TH/MM3 Lymphocytes # (Auto) 1.7 TH/MM3 Monocytes # (Auto) 1.4 TH/MM3 Eosinophils # (Auto) 9.3 TH/MM3 Basophils # (Auto) 0.2 TH/MM3 CBC Comment DIFF FINAL Differential Comment Sodium Level 136 MEQ/L Potassium Level 4.5 MEQ/L Chloride Level 100 MEQ/L Carbon Dioxide Level 26.8 MEQ/L Anion Gap 9 MEQ/L Blood Urea Nitrogen 20 MG/DL Creatinine 1.19 MG/DL Estimat Glomerular Filtration 63 ML/MIN Rate Random Glucose 93 MG/DL Calcium Level 10.2 MG/DL Blood Type A NEGATIVE A NEGATIVE Antibody Screen NEGATIVE Crossmatch Leukocyte-Reduced Red Blood Cells Blood Bank Comment Blood Gas Puncture Site DRAWN IN OR Blood Gas Patient Temperature 98.6 Blood Gas HCO3 23 mmol/L Blood Gas Base Excess -1.5 mmol/L Blood Gas Oxygen Saturation 96 % Arterial Blood pH 7.38 Arterial Blood Partial 40 mmHg Pressure CO2 Arterial Blood Partial 165 mmHg Pressure O2 Arterial Blood Oxygen Content 14.3 Vol % Arterial Blood 1.7 % Carboxyhemoglobin Arterial Blood Methemoglobin 1.3 % Blood Gas Hemoglobin 10.3 G/DL Oxygen Delivery Device OR Test 01/02/17 01/02/17 13:38 17:30 Hemoglobin 10.4 GM/DL Hematocrit 31.2 % Nasal Screen MRSA (PCR) MRSA NOT DETECTED Culture Results Microbiology Date/Time Procedure Status Source Growth 01/02/17 14:30 Urine Culture Received Urine Catheterized Urine Pending 01/02/17 14:30 Fungal Smear Received Urine Catheterized Urine Pending 01/02/17 14:30 Fungal Culture Received Urine Catheterized Urine Pending 01/02/17 14:30 Acid Fast Stain Received Urine Catheterized Urine Pending 01/02/17 14:30 Mycobacterial Culture Received Urine Catheterized Urine Pending Administered Medications Medications (Trade) Dose Ordered Sig/Nilo Route PRN Reason Start Time Stop Time Status Last Admin Dose Admin Polyethylene Glycol (Miralax) 17 gm DAILY PO 12/31/16 09:00 01/01/17 10:00 Ondansetron HCl (Zofran Inj) 4 mg Q6HR PRN IV PUSH NAUSEA OR VOMITING 01/01/17 11:30 01/01/17 21:13 Chlorhexidine Gluconate 1 applic 1 applic HS TOP 01/01/17 21:00 01/02/17 21:01 01/01/17 21:18 Potassium Chloride/Sodium Chloride (NS + KCl 20 Meq Inj) 1,000 ml @ 100 mls/hr Q10H IV 01/02/17 14:03 01/02/17 15:00 IV Flush (NS Flush) 2 ml BID IVF 01/02/17 21:00 01/02/17 20:15 Morphine Sulfate (Morphine Inj) 4 mg Q2H PRN IV PUSH PAIN SCALE 7 TO 10 01/02/17 14:15 01/02/17 19:02 Hydromorphone HCl 6 mg 6 mg UNSCH IV 01/02/17 14:15 01/02/17 19:29 Vancomycin HCl/ Sodium Chloride (Vancomycin Inj/ NS 250 ml Inj) 250 ml @ 250 mls/hr Q12H IV 01/02/17 20:00 01/03/17 20:59 01/02/17 19:30 Objective Remarks GENERAL: Well-nourished, well-developed patient. SKIN: Warm and dry. HEAD: Normocephalic. EYES: No scleral icterus. No injection or drainage. NECK: Supple, trachea midline. No JVD or lymphadenopathy. LYMPHATIC: No adenopathy. CARDIOVASCULAR: Regular rate and rhythm without murmurs. RESPIRATORY: Breath sounds equal bilaterally. No accessory muscle use. GASTROINTESTINAL: Abdomen mild distention and soft. . love in place. EXTREMITIES: No cyanosis, or edema. MUSCULOSKELETAL: Adequate muscle tone. NEUROLOGICAL: excellent strength in both lower extremities. PSYCHIATRIC: Appropriate mood and affect; insight and judgment normal. Assessment/Plan Assessment 1: doing well post op and this is the first time I am seeing him almost free of pain. 2: I have spoken with pathology Dr. Maciel and they will have adequate tissue to do staining for egfr, alk, ros1. This will help determine the choice of treatment. Once he has recovered from surgery and before discharge from the hospital will arrange for a port. Treatment will begin in a short period of time as there will be other problems soon unless we can cause regression of the tumor. I am grateful for the help.. Larry Ng MD Jan 02, 2017 20:27
[2017-01-02] MEDS: PCA - TOTAL MG DILAUDID DELIVERED PER SHIFT SCH (22:00)
[2017-01-03] VITALS (13 sets, daily range): BP systolic 95–151; BP diastolic 66–80; PULSE 87–114; RESP 16–20; TEMP 98–99.2; O2SAT 94–98
[2017-01-03] MEDS: NS + KCL 20 MEQ INJ 1,000 ML IV SCH (01:24)
[2017-01-03] MEDS: HYDROmorphone HCL PCA 6 MG/30 ML IV SCH ×3 (02:09→22:59)
[2017-01-03] MEDS: PCA - TOTAL MG DILAUDID DELIVERED PER SHIFT SCH ×3 (06:00→20:51)
[2017-01-03 06:27] LABS: AUTOMATED NEUTROPHIL # 18.3 TH/MM3 (1.8-7.7); BASOPHIL # 0.1 TH/MM3 (0-0.2); BASOPHIL % 0.4 % (0.0-2.0); EOSINOPHIL # 7.2 TH/MM3 (0-0.4); EOSINOPHIL % 24.7 % (0.0-4.0); HEMATOCRIT 33.4 % (39.0-51.0); HEMO FLAGS DIFF FINAL; LYMPHOCYTE # 1.8 TH/MM3 (1.0-4.8); MEAN CELL VOLUME 86.2 FL (80.0-100.0); MEAN CORPUSCULAR HEMOGLOBIN 27.2 PG (27.0-34.0); MEAN CORPUSCULAR HGB CONC 31.6 % (32.0-36.0); MONO % 6.7 % (0.0-8.0); NEUT % 62.2 % (16.0-70.0); PLATELET COUNT 387 TH/MM3 (150-450); RED BLOOD COUNT 3.88 MIL/MM3 (4.50-5.90); RED CELL DISTRIBUTION WIDTH 14.1 % (11.6-17.2); WHITE BLOOD COUNT 29.4 TH/MM3 (4.0-11.0)
[2017-01-03 06:48] LABS: BICARBONATE 24.3 MEQ/L (21.0-32.0); POTASSIUM 4.8 MEQ/L (3.5-5.1)
--- NOTE | 2017-01-03 08:20 | HHI.CCPN ---
Subjective Remarks/Hospital Course 56-year-old male. Date of admission 12/30/2016. Date of consult 2016. Asked medical history includes chronic low back pain requiring TATO 1 and melanoma in situ status post excision 2012. Patient was in normal state of health until 10/10 when he developed acute low back pain. He proceeded to a care facility was treated with Advil without success. He is also seen a chiropractor for relief. He used Advil 200 milligrams four pills 3x a day for the past 4-5 weeks in order to control the pain. He recently saw his primary care physician, Dr. Sherin Vizcaino. Dr. Vizcaino ordered an MRI of the lumbar spine on 2016without contrast. He was found to have a focal bone lesion at L3, S1 and possibly T12. There was edema and around 50% collapse of the central aspect of the L4 vertebral which appeared pathologic. There was extension beyond the vertebral body margin at the posterior right lateral aspect of the L4 vertebral body. The bulging of the L4 vertebral body caused a moderate impression on the thecal sac. A Chest x-ray which showed an abnormal density, measuring 7.8 cm in the posterior and medial right mid lung field. Patient was a direct admit on 12/30/16 underlying pain speed workup. He is also noted to be taken to the creatinine of 3. This is thought to be secondary to NSAID usage. 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 Creatinine currently 1.2. At this facility, patient received the following imaging MRI L-spine - L4 marrow replacing process with pathologic collapse 50% loss of vertebral height. Bony retropulsion of the anterior epidural space. Severe canal stenosis7 to [address] chest - right lower lobe 9.9 x 6.7 cm mass encasing the right lower lobe with significant bilateral nodules large in size 2.1 mm left lower lobe. Patient also with significant subcarinal,'s sperm mediastinal and left axillary lymphadenopathy. 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 Today, patient after creatinine is stabilized underwent ORIF of his L4 fracture with L2 through S1 posterior lateral fixation with pedicle screws and rods by Dr. Combs 2900 crystalloid in OR. 350 EBL. 600 cc urine output. Patient currently has 1 HALEY with bloody drainage. Currently seen in PACU nasal cannula. Subjective 01/03: Afebrile. Feels much better as pain low back/right lower extremity much improved. On Dilaudid RO[facility] [employer]. Afebrile. Hemoglobin remained stable. Adequate urine output. Objective Vital Signs Date Time Temp Pulse Resp B/P Pulse Ox O2 Delivery O2 Flow Rate FiO2 01/03/17 06:00 109 01/03/17 06:00 18 01/03/17 04:00 98.0 95/80 94 01/02/17 16:00 Nasal Cannula 4 Intake and Output 01/02/17 01/02/17 01/03/17 08:00 16:00 00:00 Intake Total 800 ml 2978 ml 1574 ml Output Total 1150 ml 2510 ml Balance 800 ml 1828 ml -936 ml Result Diagram: 01/03/17 0600 01/03/17 0600 Imaging \ Last Impressions Lumbar Spine MRI 01/01/17 0000 Signed Impressions: Service Date/Time: December 16:32 - CONCLUSION: Presumed metastatic disease with pathologic fracture at L4. Moderate associated canal stenosis. Konstantin Bingham MD Lung Biopsy CT 12/31/16 0716 Signed Impressions: Service Date/Time: Saturday, December 31, 2016 08:29 - CONCLUSION: Uncomplicated CT guided biopsy of the right lung mass. Preliminary pathology interpretation is a cellular specimen.. John Bravo MD FACR Chest X-Ray 12/31/16 0000 Signed Impressions: Service Date/Time: Saturday, December 31, 2016 10:55 - CONCLUSION: There is no pneumothorax. John Bravo MD FACR Chest CT 12/30/16 0000 Signed Impressions: Service Date/Time: Friday, December 30, 2016 19:08 - CONCLUSION: 1. Large right lower lobe mass extending into the hilum. 2. Numerous bilateral metastatic pulmonary nodules. 3. Metastatic adenopathy in the right peritracheal and subcarinal regions. There is also superior mediastinal adenopathy and left axillary adenopathy. Milan Mccallum MD Brain MRI 12/30/16 0000 Signed Impressions: Service Date/Time: Friday, December 30, 2016 19:22 - CONCLUSION: 1. Minimal nonspecific white matter changes. 2. No definite metastatic disease. Milan Mccallum MD Abdomen/Pelvis CT 12/30/16 0000 Signed Impressions: Service Date/Time: Friday, December 30, 2016 19:08 - CONCLUSION: 1. Right lower lobe mass and numerous bilateral pulmonary nodules. 2. There are prominent lymph nodes in the region of the dacia hepatis presumed metastatic. 3. The remainder of the abdomen/pelvis is otherwise unremarkable. Milan Mccallum MD Objective Remarks GENERAL: 56-year-old male, appears critically ill age currently resting in bed in no acute distress SKIN: Warm and dry. No rash HEAD: Atraumatic. Normocephalic. EYES: Pupils equal and round about 3 mm bilaterally and reactive. No scleral icterus. No injection or drainage. ENT: No nasal bleeding or discharge. Mucous membranes pink and moist. NECK: Trachea midline. No JVD. CARDIOVASCULAR: Regular rate and rhythm. S1, S2. No S4. RESPIRATORY: Clear to auscultation. Breath sounds equal bilaterally. The magical excursion GASTROINTESTINAL: Abdomen soft, non-tender, obese. Hypoactive bowel sounds MUSCULOSKELETAL: Extremities without significant peripheral edema. No obvious deformities. NEUROLOGICAL: Awake and oriented to person place time and year. Strength appears equal and symmetric. Normal sensation. A/P Assessment and Plan Neuro/Psych: Postop day #1 ORIF L4 fracture with L2/S1 posterolateral fixation with pedicle screws and rods secondary to L4 vertebral fracture with severe canal stenosis Dr. Combs/neurosurgery following Currently written for morphine 2-4 mg IV as needed for pain management along with Dilaudid RO[facility] [employer] for pain management. Currently on the Dilaudid ROAD [employer] Acetaminophen for fever HALEY 1-140 cc bloody output CV: Currently on normal saline with 20 mEq of potassium chloride at 100 cc an hour. Will discontinue Currently not requiring antihypertensives and/or vasopressors Troponin negative on admission Resp: Orally differentiated and O and squamous cell Lung cancer. See Hematology CT chest revealed a large 9.9 x 6.7 cm right lower lobe mass with lymphadenopathy encasing the right lower lobe( Nasal cannula to maintain saturations greater or equal to 92% Incentive spirometry while awake GI: Right lower lobe liver metastases 2.51.6 cm On regular basic diet. Protonix for GI prophylaxis MiraLAX daily for bowel regimen : Kidd catheter has been placed for accurate I's and O's in a critically ill patient remove as clinically indicated Endo: Sliding-scale insulin if indicated Renal: Acute kidney injury secondary to NSAID usage - resolved Followed by nephrology Neo signed off. Creatinine currently 1.2. Monitor BMP in a.m. 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 Will need radiation therapy after chemotherapy initiated status post wound healing from surgical procedures above Followed by Dr. Fordcology and radiation oncology Monitor CBC daily. Follow trends Will have a port placed prior to discharge. Currently working up the specifics for poorly differentiated down and squamous cell carcinoma ID: Postoperative antibiotics per neurosurgery. Ancef 2 g IV every 8 hours Monitor for signs and symptoms infection MSK: Chronic back pain PT evaluate and treat. Prior to OR decreased strengthpain right lower extremity FEN: Replace electrolytes is clinically indicated Discontinue normal saline with 20 mEq of KCl 100 cc an hour Access - Utilize 2 right upper extremity peripheral IV. Central line if indicated - Left radial arterial line placed 01/02 in OR discontinued today Prophylaxis - GI -currently not indicated - DVT - SCD/pharmacological prophylaxis when okay with neurosurgery Level II Jason Quiroz MD Jan 03, 2017 08:20
[2017-01-03] MEDS: PANTOPRAZOLE SODIUM 40 MG VIAL IVP SCH (08:35)
[2017-01-03] MEDS: VANCOMYCIN 1,000 MG/NS 250 ML IV SCH ×4 (08:36→20:51)
[2017-01-03] MEDS: SODIUM CHLORIDE 0.9% FLUSH 5 ML FLUSH IVF SCH ×2 (08:37→21:00)
[2017-01-03] MEDS: POLYETHYLENE GLYCOL 17 GM PKG PO SCH ×2 (08:37→09:45)
--- NOTE | 2017-01-03 09:31 | PD.ONC.PN ---
Subjective Subjective Remarks Afebrile overnight. Patient resting in room. He states his right leg and back feel better than they've ever felt. He wants to start walking. Hoping to be moved to a regular floor soon. Objective Data Date Time Temp Pulse Resp B/P Pulse Ox O2 Delivery O2 Flow Rate FiO2 01/03/17 06:00 109 01/03/17 06:00 18 01/03/17 04:00 104 01/03/17 04:00 98.0 104 16 95/80 94 01/03/17 02:09 18 01/03/17 02:00 90 01/03/17 00:00 87 01/03/17 00:00 98.2 87 20 131/80 98 01/02/17 22:00 82 01/02/17 22:00 14 01/02/17 21:13 96 01/02/17 20:00 98.0 89 18 129/62 97 01/02/17 20:00 91 01/02/17 19:29 8 01/02/17 17:20 97.9 96 18 125/65 95 01/02/17 16:00 98.1 93 20 133/66 95 Nasal Cannula 4 01/02/17 15:45 97 18 137/70 95 Nasal Cannula 4 01/02/17 15:30 93 22 124/67 97 Nasal Cannula 4 01/02/17 15:15 89 20 138/69 96 Nasal Cannula 4 01/02/17 15:00 88 20 130/68 98 Nasal Cannula 4 01/02/17 14:53 98.1 92 20 128/69 100 Nasal Cannula 4 Result Diagram: 01/03/17 0601/03/17 0600 Laboratory Results Laboratory Tests Test 01/02/17 01/02/17 01/02/17 01/02/17 10:07 13:35 13:38 17:30 Blood Type A NEGATIVE Blood Gas Puncture Site DRAWN IN OR Blood Gas Patient Temperature 98.6 Blood Gas HCO3 23 mmol/L Blood Gas Base Excess -1.5 mmol/L Blood Gas Oxygen Saturation 96 % Arterial Blood pH 7.38 Arterial Blood Partial 40 mmHg Pressure CO2 Arterial Blood Partial 165 mmHg Pressure O2 Arterial Blood Oxygen Content 14.3 Vol % Arterial Blood 1.7 % Carboxyhemoglobin Arterial Blood Methemoglobin 1.3 % Blood Gas Hemoglobin 10.3 G/DL Oxygen Delivery Device OR Hemoglobin 10.4 GM/DL Hematocrit 31.2 % Nasal Screen MRSA (PCR) MRSA NOT DETECTED Test 01/03/17 06:00 White Blood Count 29.4 TH/MM3 Red Blood Count 3.88 MIL/MM3 Hemoglobin 10.6 GM/DL Hematocrit 33.4 % Mean Corpuscular Volume 86.2 FL Mean Corpuscular Hemoglobin 27.2 PG Mean Corpuscular Hemoglobin 31.6 % Concent Red Cell Distribution Width 14.1 % Platelet Count 387 TH/MM3 Mean Platelet Volume 7.3 FL Neutrophils (%) (Auto) 62.2 % Lymphocytes (%) (Auto) 6.0 % Monocytes (%) (Auto) 6.7 % Eosinophils (%) (Auto) 24.7 % Basophils (%) (Auto) 0.4 % Neutrophils # (Auto) 18.3 TH/MM3 Lymphocytes # (Auto) 1.8 TH/MM3 Monocytes # (Auto) 2.0 TH/MM3 Eosinophils # (Auto) 7.2 TH/MM3 Basophils # (Auto) 0.1 TH/MM3 CBC Comment DIFF FINAL Differential Comment Sodium Level 139 MEQ/L Potassium Level 4.8 MEQ/L Chloride Level 105 MEQ/L Carbon Dioxide Level 24.3 MEQ/L Anion Gap 10 MEQ/L Blood Urea Nitrogen 16 MG/DL Creatinine 0.87 MG/DL Estimat Glomerular Filtration 91 ML/MIN Rate Random Glucose 115 MG/DL Calcium Level 9.0 MG/DL Culture Results Microbiology Date/Time Procedure Status Source Growth 01/02/17 14:30 Urine Culture Received Urine Catheterized Urine Pending 01/02/17 14:30 Fungal Smear Received Urine Catheterized Urine Pending 01/02/17 14:30 Fungal Culture Received Urine Catheterized Urine Pending 01/02/17 14:30 Acid Fast Stain Received Urine Catheterized Urine Pending 01/02/17 14:30 Mycobacterial Culture Received Urine Catheterized Urine Pending Administered Medications Medications (Trade) Dose Ordered Sig/Nilo Route PRN Reason Start Time Stop Time Status Last Admin Dose Admin Polyethylene Glycol (Miralax) 17 gm DAILY PO 12/31/16 09:00 01/03/17 08:37 Ondansetron HCl (Zofran Inj) 4 mg Q6HR PRN IV PUSH NAUSEA OR VOMITING 01/01/17 11:30 01/01/17 21:13 IV Flush (NS Flush) 2 ml BID IVF 01/02/17 21:00 01/03/17 08:37 Pantoprazole Sodium (Protonix Inj) 40 mg DAILY IVP 01/03/17 09:00 01/03/17 08:35 Morphine Sulfate (Morphine Inj) 4 mg Q2H PRN IV PUSH PAIN SCALE 7 TO 10 01/02/17 14:15 01/02/17 19:02 Hydromorphone HCl (Dilaudid ORE FEEDER Inj) 6 mg UNSCH IV 01/02/17 14:15 01/03/17 02:09 ORE FEEDER Dosage Infused (Pha) 1 1 Q8HR .XX 01/02/17 22:00 01/03/17 06:00 Vancomycin HCl/ Sodium Chloride (Vancomycin Inj/ NS 250 ml Inj) 250 ml @ 250 mls/hr Q12H IV 01/02/17 20:00 01/03/17 20:59 01/03/17 08:36 Objective Remarks GENERAL: Middle aged male, lying supine in bed in nad. SKIN: Warm and dry. HEAD: Normocephalic. EYES: No injection or drainage. NECK: Supple, trachea midline. CARDIOVASCULAR: Regular rate and rhythm RESPIRATORY: Breath sounds equal bilaterally. No accessory muscle use. GASTROINTESTINAL: Abdomen soft, non-tender, nondistended. EXTREMITIES: No cyanosis NEUROLOGICAL: awake and alert. normal speech. Assessment/Plan Problem List: (1) Stage IV adenocarcinoma of lung Status: Acute Plan: 01/03: patient POD #1 from L4 corpectomy and L2-L4 fusion. will follow and plan for port placement Thursday if stable enough --pathology from lung mass biopsy showed poorly differentiated carcinoma with both primary lung adenocarcinoma and squamous features. --tissue will be sent for EGFR, ALK, ROS1 staining --will arrange for port placement once recovered from surgery--likely Thursday CT thorax large mass superior segment right lower lobe extending into the hilum. This measures 9.9 x 6.7 cm. There are multiple bilateral metastatic nodules ranging in size from 2 to 21 mm. There is a prominent nodule in the left lower lobe measuring 2.1 cm. There are numerous other bilateral nodules. There is right paratracheal adenopathy measuring 3.6 x 3.0 cm. There is prominent subcarinal adenopathy and right hilar adenopathy. The mass encases the right lower lobe bronchus. There is superior mediastinal and prevascular adenopathy. There is a left axillary lymph node. MRI brain: no metastatic disease. CT ab/pelvis: prominent lymph nodes in the region the dacia hepatis presumed metastatic. had pathologic fx of L4 w/ retropulsion--> on 01/02 underwent L4 corpectomy, L2 to L4 posterolateral fusion and autologous bone graft Assessment 56y/o male with newly diagnosed stage IV lung cancer Attending Statement Patient complaining of back pain where he had the surgery yesterday Patient is recovering from surgery Patient is optimistic will start chemo soon Continue present plan The exam, history, and the medical decision-making described in the above note were completed with the assistance of the mid-level provider. I reviewed and agree with the findings presented. I attest that I had a [id number] encounter with the patient on the same day, and personally performed and documented my assessment and findings in the medical record. Denice Hubbard Jan 03, 2017 09:31 Wilder Xiong MD Jan 04, 2017 01:49
--- NOTE | 2017-01-03 09:44 | HHI.NSPN ---
History Chief Complaint: incisional back pain. Interval History Mr. Mae is a 56 year old male who complains of severe lumbar pain and right lower extremity pain. Mr. Mae reports he has a history of chronic back pain but recently severely worsened. He complains his pain is in the lumbar region and radiates down his right lower extremity posterolaterally to the top of the foot. He rates the pain as a 9/10. He has difficulty walking due to the severity of the pain and is requiring a walker to ambulated. He has some gross proximal right leg weakness. He denies bowel or bladder incontinence. He underwent an MRI of the lumbar spine outpatient. This was reviewed and showed bony lesions at L3, S1, and pathological compression fracture of L4 causing stenosis at L4-5. A CT Chest reveals a large lung mass. He was directly admitted to the hospital by Dr. Ng. A neurosurgical evaluation was requested. 01/01: unchanged severe lumbar and right leg pain 01/03/17: Pt underwent a L4 corpectomy, open reduction of pathological fracture with resection of metastatic carcinoma, L2 to L4 posterolateral fusion and autologous bone graft, L2 to L4 segmental instrumental fixation using transpedicular screws and rods, microsurgical dissection on 01/02/17: Pt awake and alert today. he wants to get out of ICU. He has incision and low back pain with muscles spasms intermittently. He states he has numbness in from the right knee down which has been chronic. Review of Systems General: Negative for: fever, chills, insomnia Respiratory: Negative for: shortness of breath, cough, sputum Cardiovascular: Negative for: chest pain Gastrointestinal: Negative for: nausea, vomitting, diarrhea, constipation Exam Results Vital Signs Date Time Temp Pulse Resp B/P Pulse Ox O2 Delivery O2 Flow Rate FiO2 01/03/17 06:00 109 01/03/17 06:00 18 01/03/17 04:00 98.0 95/80 94 01/02/17 16:00 Nasal Cannula 4 Intake and Output 01/02/17 01/02/17 01/02/17 07:59 15:59 23:59 Intake Total 800 ml 2900 ml 1652 ml Output Total 950 ml 2710 ml Balance 800 ml 1950 ml -1058 ml Physical Examination Resp: right sided wheezing to auscultation. Heart: Mild Tachycardia. no murmurs Abd: Soft positive bs Skin: No cyanosis or erythema Muscle: Moves LEs with good strength 5/5 bilaterally. Neuro: Patient awake and alert. Follows commands well. Speech clear and appropriate. Lab, Micro, Other Results Last Impressions Lumbar Spine MRI 01/01/17 0000 Signed Impressions: Service Date/Time: December 16:32 - CONCLUSION: Presumed metastatic disease with pathologic fracture at L4. Moderate associated canal stenosis. Konstantin Bingham MD Lung Biopsy CT 12/31/16 0716 Signed Impressions: Service Date/Time: Saturday, December 31, 2016 08:29 - CONCLUSION: Uncomplicated CT guided biopsy of the right lung mass. Preliminary pathology interpretation is a cellular specimen.. John Bravo MD FACR Chest X-Ray 12/31/16 0000 Signed Impressions: Service Date/Time: Saturday, December 31, 2016 10:55 - CONCLUSION: There is no pneumothorax. John Bravo MD FACR Chest CT 12/30/16 0000 Signed Impressions: Service Date/Time: Friday, December 30, 2016 19:08 - CONCLUSION: 1. Large right lower lobe mass extending into the hilum. 2. Numerous bilateral metastatic pulmonary nodules. 3. Metastatic adenopathy in the right peritracheal and subcarinal regions. There is also superior mediastinal adenopathy and left axillary adenopathy. Milan Mccallum MD Brain MRI 12/30/16 0000 Signed Impressions: Service Date/Time: Friday, December 30, 2016 19:22 - CONCLUSION: 1. Minimal nonspecific white matter changes. 2. No definite metastatic disease. Milan Mccallum MD Abdomen/Pelvis CT 12/30/16 0000 Signed Impressions: Service Date/Time: Friday, December 30, 2016 19:08 - CONCLUSION: 1. Right lower lobe mass and numerous bilateral pulmonary nodules. 2. There are prominent lymph nodes in the region of the dacia hepatis presumed metastatic. 3. The remainder of the abdomen/pelvis is otherwise unremarkable. Milan Mccallum MD Laboratory Tests Test 01/02/17 01/02/17 01/02/17 01/02/17 10:07 13:35 13:38 17:30 Blood Type A NEGATIVE Blood Gas Puncture Site DRAWN IN OR Blood Gas Patient Temperature 98.6 Blood Gas HCO3 23 mmol/L Blood Gas Base Excess -1.5 mmol/L Blood Gas Oxygen Saturation 96 % Arterial Blood pH 7.38 Arterial Blood Partial 40 mmHg Pressure CO2 Arterial Blood Partial 165 mmHg Pressure O2 Arterial Blood Oxygen Content 14.3 Vol % Arterial Blood 1.7 % Carboxyhemoglobin Arterial Blood Methemoglobin 1.3 % Blood Gas Hemoglobin 10.3 G/DL Oxygen Delivery Device OR Hemoglobin 10.4 GM/DL Hematocrit 31.2 % Nasal Screen MRSA (PCR) MRSA NOT DETECTED Test 01/03/17 06:00 White Blood Count 29.4 TH/MM3 Red Blood Count 3.88 MIL/MM3 Hemoglobin 10.6 GM/DL Hematocrit 33.4 % Mean Corpuscular Volume 86.2 FL Mean Corpuscular Hemoglobin 27.2 PG Mean Corpuscular Hemoglobin 31.6 % Concent Red Cell Distribution Width 14.1 % Platelet Count 387 TH/MM3 Mean Platelet Volume 7.3 FL Neutrophils (%) (Auto) 62.2 % Lymphocytes (%) (Auto) 6.0 % Monocytes (%) (Auto) 6.7 % Eosinophils (%) (Auto) 24.7 % Basophils (%) (Auto) 0.4 % Neutrophils # (Auto) 18.3 TH/MM3 Lymphocytes # (Auto) 1.8 TH/MM3 Monocytes # (Auto) 2.0 TH/MM3 Eosinophils # (Auto) 7.2 TH/MM3 Basophils # (Auto) 0.1 TH/MM3 CBC Comment DIFF FINAL Differential Comment Sodium Level 139 MEQ/L Potassium Level 4.8 MEQ/L Chloride Level 105 MEQ/L Carbon Dioxide Level 24.3 MEQ/L Anion Gap 10 MEQ/L Blood Urea Nitrogen 16 MG/DL Creatinine 0.87 MG/DL Estimat Glomerular Filtration 91 ML/MIN Rate Random Glucose 115 MG/DL Calcium Level 9.0 MG/DL 01/02/17 01/02/17 01/03/17 14:59 22:59 06:59 Intake Total 2900 ml 1652 ml 1746 ml Output Total 950 ml 2710 ml 1230 ml Balance 1950 ml -1058 ml 516 ml Intake Oral 782 ml 850 ml IV Total 870 ml 896 ml Other 2900 ml Output Urine Total 600 ml 2600 ml 1200 ml Drainage Total 110 ml 30 ml Estimated Blood Loss 350 ml # Bowel Movements 0 0 Medical Decision Making Impression and Plan A: 56 y/o M with intractable lumbar radiculopathy, spine metastases, L4 fracture with retropulsion and canal stenosis s/p L4 corpectomy, open reduction of pathological fracture with resection of metastatic carcinoma, L2 to L4 posterolateral fusion and autologous bone graft, L2 to L4 segmental instrumental fixation using transpedicular screws and rods, microsurgical dissection on 01/02/17 large lung mass s/p needle biopsy, reveals poorly differentiated carcinoma with both primary lung adenocarcinoma and squamous features. Plan Plan Plan Remarks Transfer to med surg floor Continue with pain control PT TLSO brace on prior to sitting, standing or walking. Milan Arroyo Jan 03, 2017 09:44
[2017-01-03] MEDS: ONDANSETRON HCL 4 MG/2 ML VIAL IV PUSH PRN (09:49)
[2017-01-03] MEDS ORDERED: BISACODYL 10 MG SUPP RECTAL ONE (20:00)
[2017-01-04] VITALS (7 sets, daily range): BP systolic 118–141; BP diastolic 61–80; PULSE 75–110; RESP 18–24; TEMP 96.9–98.3; O2SAT 88–99
[2017-01-04] MEDS: PCA - TOTAL MG DILAUDID DELIVERED PER SHIFT SCH ×3 (06:00→22:00)
--- NOTE | 2017-01-04 07:59 | HHI.CCPN ---
Subjective Remarks/Hospital Course 56-year-old male. Date of admission 12/30/2016. Date of consult 2016. Asked medical history includes chronic low back pain requiring TATO 1 and melanoma in situ status post excision 2012. Patient was in normal state of health until 10/10 when he developed acute low back pain. He proceeded to a care facility was treated with Advil without success. He is also seen a chiropractor for relief. He used Advil 200 milligrams four pills 3x a day for the past 4-5 weeks in order to control the pain. He recently saw his primary care physician, Dr. Sherin Vizcaino. Dr. Vizcaino ordered an MRI of the lumbar spine on 2016without contrast. He was found to have a focal bone lesion at L3, S1 and possibly T12. There was edema and around 50% collapse of the central aspect of the L4 vertebral which appeared pathologic. There was extension beyond the vertebral body margin at the posterior right lateral aspect of the L4 vertebral body. The bulging of the L4 vertebral body caused a moderate impression on the thecal sac. A Chest x-ray which showed an abnormal density, measuring 7.8 cm in the posterior and medial right mid lung field. Patient was a direct admit on 12/30/16 underlying pain speed workup. He is also noted to be taken to the creatinine of 3. This is thought to be secondary to NSAID usage. Seen by cork compounder hospitalization and receiving IV fluids. Creatinine currently 1.2. At this facility, patient received the following imaging MRI L-spine - L4 marrow replacing process with pathologic collapse 50% loss of vertebral height. Bony retropulsion of the anterior epidural space. Severe canal stenosis7 to [address] chest - right lower lobe 9.9 x 6.7 cm mass encasing the right lower lobe with significant bilateral nodules large in size 2.1 mm left lower lobe. Patient also with significant subcarinal,'s sperm mediastinal and left axillary lymphadenopathy. 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 Today, patient after creatinine is stabilized underwent ORIF of his L4 fracture with L2 through S1 posterior lateral fixation with pedicle screws and rods by Dr. Combs 2900 crystalloid in OR. 350 EBL. 600 cc urine output. Patient currently has 1 HALEY with bloody drainage. Currently seen in PACU nasal cannula. 01/03: Afebrile. Feels much better as pain low back/right lower extremity much improved. 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 Afebrile. Hemoglobin remained stable. Adequate urine output. Subjective 01/04: Afebrile. Able to use barely stand yesterday that happy with the. 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 Laboratories pending. Kidd still in place. A line discontinued. Objective Vital Signs Date Time Temp Pulse Resp B/P Pulse Ox O2 Delivery O2 Flow Rate FiO2 01/04/17 06:00 18 01/04/17 04:00 98.3 102 141/80 99 01/03/17 21:24 21 01/02/17 16:00 Nasal Cannula 4 Intake and Output 01/03/17 01/03/17 01/04/17 08:00 16:00 00:00 Intake Total 1746 ml 565 ml 571 ml Output Total 1230 ml 1075 ml 1030 ml Balance 516 ml -510 ml -459 ml Result Diagram: 01/03/17 0600 01/03/17 0600 Other Results Microbiology Date/Time Procedure Status Source Growth 01/02/17 14:30 Urine Culture - Preliminary Resulted Urine Catheterized Urine NO GROWTH IN 24 HOURS. 01/02/17 14:30 Fungal Smear - Final Resulted Urine Catheterized Urine 01/02/17 14:30 Fungal Culture Resulted Urine Catheterized Urine Pending 01/02/17 14:30 Acid Fast Stain Received Urine Catheterized Urine Pending 01/02/17 14:30 Mycobacterial Culture Received Urine Catheterized Urine Pending Imaging Last Impressions Lumbar Spine MRI 01/01/17 0000 Signed Impressions: Service Date/Time: December 16:32 - CONCLUSION: Presumed metastatic disease with pathologic fracture at L4. Moderate associated canal stenosis. Konstantin Bingham MD Lung Biopsy CT 12/31/16 0716 Signed Impressions: Service Date/Time: Saturday, December 31, 2016 08:29 - CONCLUSION: Uncomplicated CT guided biopsy of the right lung mass. Preliminary pathology interpretation is a cellular specimen.. John Bravo MD FACR Chest X-Ray 12/31/16 0000 Signed Impressions: Service Date/Time: Saturday, December 31, 2016 10:55 - CONCLUSION: There is no pneumothorax. John Bravo MD FACR Chest CT 12/30/16 Signed Impressions: Service Date/Time: Friday, December 30, 2016 19:08 - CONCLUSION: 1. Large right lower lobe mass extending into the hilum. 2. Numerous bilateral metastatic pulmonary nodules. 3. Metastatic adenopathy in the right peritracheal and subcarinal regions. There is also superior mediastinal adenopathy and left axillary adenopathy. Milan Mccallum MD Brain MRI 12/30/16 Signed Impressions: Service Date/Time: Friday, December 30, 2016 19:22 - CONCLUSION: 1. Minimal nonspecific white matter changes. 2. No definite metastatic disease. Milan Mccallum MD Abdomen/Pelvis CT 12/30/16 Signed Impressions: Service Date/Time: Friday, December 30, 2016 19:08 - CONCLUSION: 1. Right lower lobe mass and numerous bilateral pulmonary nodules. 2. There are prominent lymph nodes in the region of the dacia hepatis presumed metastatic. 3. The remainder of the abdomen/pelvis is otherwise unremarkable. Milan Mccallum MD Objective Remarks GENERAL: 56-year-old male, appears critically ill age currently resting in bed in no acute distress SKIN: Warm and dry. No rash HEAD: Atraumatic. Normocephalic. EYES: Pupils equal and round about 3 mm bilaterally and reactive. No scleral icterus. No injection or drainage. ENT: No nasal bleeding or discharge. Mucous membranes pink and moist. NECK: Trachea midline. No JVD. CARDIOVASCULAR: Regular rate and rhythm. S1, S2. No S4. RESPIRATORY: Clear to auscultation. Breath sounds equal bilaterally. The magical excursion GASTROINTESTINAL: Abdomen soft, non-tender, obese. Hypoactive bowel sounds MUSCULOSKELETAL: Extremities without significant peripheral edema. No obvious deformities. NEUROLOGICAL: Awake and oriented to person place time and year. Strength appears equal and symmetric. Able to push down bilateral lower extremities. Normal sensation. A/P Assessment and Plan Neuro/Psych: Postop day #2 ORIF L4 fracture with L2/S1 posterolateral fixation with pedicle screws and rods secondary to L4 vertebral fracture with severe canal stenosis Dr. 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 Currently on the Dilaudid AUTO COLLISION REPAIR INSTRUCTOR Acetaminophen for fever HALEY 1- 60 cc bloody output CV: IV fluids discontinued yesterday Currently not requiring antihypertensives and/or vasopressors Troponin negative on admission Resp: Orally differentiated and O and squamous cell Lung cancer. See Hematology CT chest revealed a large 9.9 x 6.7 cm right lower lobe mass with lymphadenopathy encasing the right lower lobe( Nasal cannula to maintain saturations greater or equal to 92% Incentive spirometry while awake GI: Right lower lobe liver metastases 2.51.6 cm On regular basic diet. Protonix for GI prophylaxis MiraLAX daily for bowel regimen : Kidd catheter has been placed for accurate I's and O's in a critically ill patient remove as clinically indicated Endo: Sliding-scale insulin if indicated Renal: Acute kidney injury secondary to NSAID usage - resolved Followed by nephrology Neo signed off. Creatinine currently within normal limits. Monitor BMP in a.m. 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 Will need radiation therapy after chemotherapy initiated status post wound healing from surgical procedures above Followed by Dr. Fordcology and radiation oncology Monitor CBC daily. Follow trends Will have a port placed prior to discharge. Currently working up the specifics for poorly differentiated down and squamous cell carcinoma ID: Postoperative antibiotics per neurosurgery. Ancef 2 g IV every 8 hours to be completed Monitor for signs and symptoms infection MSK: Chronic back pain PT evaluate and treat. Prior to OR decreased strengthpain right lower extremity FEN: Replace electrolytes is clinically indicated Access - Utilize 2 right upper extremity peripheral IV. Central line if indicated - Left radial arterial line placed 01/02 in OR discontinued 01/03 Kidd be discontinued today Prophylaxis - GI -currently not indicated - DVT - SCD/pharmacological prophylaxis when okay with neurosurgery Level II Jason Quiroz MD Jan 04, 2017 07:59
[2017-01-04] MEDS: SODIUM CHLORIDE 0.9% FLUSH 5 ML FLUSH IVF SCH ×2 (09:00→21:00)
--- NOTE | 2017-01-04 09:17 | HHI.NSPN ---
(Milan Arroyo) History Chief Complaint: incisional back pain. (Milan Arroyo) Interval History Mr. Mae is a 56 year old male who complains of severe lumbar pain and right lower extremity pain. Mr. aMe reports he has a history of chronic back pain but recently severely worsened. He complains his pain is in the lumbar region and radiates down his right lower extremity posterolaterally to the top of the foot. He rates the pain as a 9/10. He has difficulty walking due to the severity of the pain and is requiring a walker to ambulated. He has some gross proximal right leg weakness. He denies bowel or bladder incontinence. He underwent an MRI of the lumbar spine outpatient. This was reviewed and showed bony lesions at L3, S1, and pathological compression fracture of L4 causing stenosis at L4-5. A CT Chest reveals a large lung mass. He was directly admitted to the hospital by Dr. Ng. A neurosurgical evaluation was requested. 01/01: unchanged severe lumbar and right leg pain 01/03/17: Pt underwent a L4 corpectomy, open reduction of pathological fracture with resection of metastatic carcinoma, L2 to L4 posterolateral fusion and autologous bone graft, L2 to L4 segmental instrumental fixation using transpedicular screws and rods, microsurgical dissection on 01/02/17: Pt awake and alert today. he wants to get out of ICU. He has incision and low back pain with muscles spasms intermittently. He states he has numbness in from the right knee down which has been chronic. 01/04/17: Pt awake and alert. Complains of incisional back pain. No radiculopathy in LEs. Numbness stable in RLE. (Milan Arroyo) Review of Systems General: Negative for: fever, chills, insomnia Respiratory: Negative for: shortness of breath, cough, sputum Cardiovascular: Negative for: chest pain Gastrointestinal: Negative for: nausea, vomitting, diarrhea, constipation ( Milan Arroyo) Exam Results Vital Signs Date Time Temp Pulse Resp B/P Pulse Ox O2 Delivery O2 Flow Rate FiO2 01/04/17 06:00 18 01/04/17 04:00 98.3 102 141/80 99 01/03/17 21:24 21 01/02/17 16:00 Nasal Cannula 4 Intake and Output 01/03/17 01/03/17 01/04/17 08:00 16:00 00:00 Intake Total 1746 ml 565 ml 571 ml Output Total 1230 ml 1075 ml 1030 ml Balance 516 ml -510 ml -459 ml (Milan Arroyo) Physical Examination Resp: Wheezing resolved today. CTA bilaterally. Heart: NSR. no murmurs Abd: Soft positive bs Skin: No cyanosis or erythema. Bandage changed by RN this morning. Muscle: Moves LEs with good strength 5/5 bilaterally. Neuro: Patient awake and alert. Follows commands well. Speech clear and appropriate. (Milan Arroyo) Lab, Micro, Other Results Last Impressions Lumbar Spine MRI 01/01/17 0000 Signed Impressions: Service Date/Time: December 16:32 - CONCLUSION: Presumed metastatic disease with pathologic fracture at L4. Moderate associated canal stenosis. Konstantin Bingham MD Lung Biopsy CT 12/31/16 0716 Signed Impressions: Service Date/Time: Saturday, December 31, 2016 08:29 - CONCLUSION: Uncomplicated CT guided biopsy of the right lung mass. Preliminary pathology interpretation is a cellular specimen.. John Bravo MD FACR Chest X-Ray 12/31/16 0000 Signed Impressions: Service Date/Time: Saturday, December 31, 2016 10:55 - CONCLUSION: There is no pneumothorax. John Bravo MD FACR Chest CT 12/30/16 0000 Signed Impressions: Service Date/Time: Friday, December 30, 2016 19:08 - CONCLUSION: 1. Large right lower lobe mass extending into the hilum. 2. Numerous bilateral metastatic pulmonary nodules. 3. Metastatic adenopathy in the right peritracheal and subcarinal regions. There is also superior mediastinal adenopathy and left axillary adenopathy. Milan Mccallum MD Brain MRI 12/30/16 0000 Signed Impressions: Service Date/Time: Friday, December 30, 2016 19:22 - CONCLUSION: 1. Minimal nonspecific white matter changes. 2. No definite metastatic disease. Milan Mccallum MD Abdomen/Pelvis CT 12/30/16 0000 Signed Impressions: Service Date/Time: Friday, December 30, 2016 19:08 - CONCLUSION: 1. Right lower lobe mass and numerous bilateral pulmonary nodules. 2. There are prominent lymph nodes in the region of the dacia hepatis presumed metastatic. 3. The remainder of the abdomen/pelvis is otherwise unremarkable. Milan Mccallum MD 01/03/17 01/03/17 01/04/17 15:00 23:00 07:00 Intake Total 565 ml 571 ml 503 ml Output Total 1075 ml 1030 ml 1030 ml Balance -510 ml -459 ml -527 ml Intake Oral 265 ml 240 ml 140 ml IV Total 300 ml 331 ml 363 ml Output Urine Total 1075 ml 1000 ml 1000 ml Drainage Total 30 ml 30 ml # Bowel Movements 0 1 (Milan Arroyo) Medical Decision Making Impression and Plan A: 56 y/o M with intractable lumbar radiculopathy, spine metastases, L4 fracture with retropulsion and canal stenosis s/p L4 corpectomy, open reduction of pathological fracture with resection of metastatic carcinoma, L2 to L4 posterolateral fusion and autologous bone graft, L2 to L4 segmental instrumental fixation using transpedicular screws and rods, microsurgical dissection on 01/02/17 large lung mass s/p needle biopsy, reveals poorly differentiated carcinoma with both primary lung adenocarcinoma and squamous features. Plan Plan Plan Remarks Transfer to med surg floor Continue with pain control PT TLSO brace on prior to sitting, standing or walking. (Milan Arroyo) Attending Statement The exam, history, and the medical decision-making described in the above note were completed with the assistance of the mid-level provider. I reviewed and agree with the findings presented. I attest that I had a [id number] encounter with the patient on the same day, and personally performed and documented my assessment and findings in the medical record. (Keegan Dowell MD) Milan Arroyo Jan 04, 2017 09:17 Keegan Dowell MD Jan 04, 2017 11:59
[2017-01-04] MEDS: DOCUSATE SODIUM 50 MG/SENNA 8.6 MG TAB PO SCH ×2 (09:59→21:00)
[2017-01-04] MEDS: POLYETHYLENE GLYCOL 17 GM PKG PO SCH (09:59)
[2017-01-04] MEDS: PANTOPRAZOLE SODIUM 40 MG VIAL IVP SCH (10:00)
[2017-01-04] MEDS: SIMETHICONE 125 MG CHEWABLE TAB PO PRN (10:16)
[2017-01-04 11:40] LABS: MEAN CORPUSCULAR HEMOGLOBIN 27.9 PG (27.0-34.0); MEAN CORPUSCULAR HGB CONC 32.5 % (32.0-36.0); PLATELET COUNT 432 TH/MM3 (150-450); RED BLOOD COUNT 3.96 MIL/MM3 (4.50-5.90); RED CELL DISTRIBUTION WIDTH 14.4 % (11.6-17.2)
[2017-01-04 11:41] LABS: HEMO FLAGS AUTO DIFF
[2017-01-04 12:10] LABS: BICARBONATE 25.3 MEQ/L (21.0-32.0); POTASSIUM 4.7 MEQ/L (3.5-5.1)
[2017-01-04 12:23] LABS: BANDS 8 % (0-6); EOSINOPHILS 47 % (0-4); MYELOCYTES 1 % (0-0); NEUTROPHIL # MANUAL DIFF 18.3 TH/MM3 (1.8-7.7); POLYS (SEG NEUTROPHILS) 38 % (16-70); WBC DIFF SAMPLE 100
[2017-01-04 12:26] LABS: PLATELET ESTIMATE SMEAR NORMAL (NORMAL); PLATELET MORPHOLOGY NORMAL (NORMAL); SCAN/DIFF FINAL DIFF MANUAL; TOXIC VACUOLATION PRESENT (NONE SEEN)
[2017-01-04] MEDS: HYDROmorphone HCL PCA 6 MG/30 ML IV SCH (12:32)
[2017-01-05] VITALS (7 sets, daily range): BP systolic 114–146; BP diastolic 60–79; PULSE 89–103; RESP 18–20; TEMP 95.8–98.3; O2SAT 92–98
[2017-01-05] MEDS: HYDROmorphone HCL PCA 6 MG/30 ML IV SCH (04:18)
[2017-01-05] MEDS: PCA - TOTAL MG DILAUDID DELIVERED PER SHIFT SCH ×3 (05:05→21:09)
[2017-01-05] MEDS: PANTOPRAZOLE SODIUM 40 MG VIAL IVP SCH (08:05)
[2017-01-05] MEDS: POLYETHYLENE GLYCOL 17 GM PKG PO SCH (09:00)
[2017-01-05] MEDS: SODIUM CHLORIDE 0.9% FLUSH 5 ML FLUSH IVF SCH ×2 (09:00→21:17)
[2017-01-05] MEDS: DOCUSATE SODIUM 50 MG/SENNA 8.6 MG TAB PO SCH ×2 (09:00→21:17)
[2017-01-05 09:06] LABS: MEAN CELL VOLUME 85.6 FL (80.0-100.0); MEAN CORPUSCULAR HEMOGLOBIN 27.5 PG (27.0-34.0); MEAN CORPUSCULAR HGB CONC 32.2 % (32.0-36.0); PLATELET COUNT 384 TH/MM3 (150-450); RED BLOOD COUNT 3.27 MIL/MM3 (4.50-5.90); RED CELL DISTRIBUTION WIDTH 14.3 % (11.6-17.2); REVIEW FLAG FINAL; WHITE BLOOD COUNT 28.6 TH/MM3 (4.0-11.0)
[2017-01-05 09:29] LABS: BICARBONATE 29.7 MEQ/L (21.0-32.0); POTASSIUM 4.3 MEQ/L (3.5-5.1)
[2017-01-05] MEDS ORDERED: VANCOMYCIN INJ 1,000 MG in SODIUM CHLOR 0.9% 250 ML INJ 250 ML IV SCH (09:45)
--- NOTE | 2017-01-05 11:24 | HHI.NSPN ---
(Kanika Avila) Note Status Status: Progress Note (Kanika Avila) Interval History Interval History Mr. Mae is a 56 year old male who complains of severe lumbar pain and right lower extremity pain. Mr. Mae reports he has a history of chronic back pain but recently severely worsened. He complains his pain is in the lumbar region and radiates down his right lower extremity posterolaterally to the top of the foot. He rates the pain as a 9/10. He has difficulty walking due to the severity of the pain and is requiring a walker to ambulated. He has some gross proximal right leg weakness. He denies bowel or bladder incontinence. He underwent an MRI of the lumbar spine outpatient. This was reviewed and showed bony lesions at L3, S1, and pathological compression fracture of L4 causing stenosis at L4-5. A CT Chest reveals a large lung mass. He was directly admitted to the hospital by Dr. Ng. A neurosurgical evaluation was requested. 01/01: unchanged severe lumbar and right leg pain 01/05: right radicular pain much improved, ambulating. surgical pain improving. (Kanika Avila) Labs, Micro, & Vital Signs Results Date Time Temp Pulse Resp B/P Pulse Ox O2 Delivery O2 Flow Rate FiO2 01/05/17 08:00 98.3 94 19 133/77 94 01/05/17 05:05 18 01/05/17 04:18 18 01/05/17 04:00 97.9 102 20 133/72 92 01/05/17 00:00 97.1 103 20 146/74 98 01/04/17 22:00 18 01/04/17 20:00 96.9 110 20 141/78 96 01/04/17 16:08 98.0 75 20 118/61 93 01/04/17 14:37 14 01/04/17 13:02 15 01/04/17 12:32 22 01/04/17 12:00 99 01/04/17 12:00 98.0 99 22 135/70 99 01/05/17 07:00 Intake Total 480 ml Output Total 695 ml Balance -215 ml Constitutional Vital Signs Date Time Temp Pulse Resp B/P Pulse Ox O2 Delivery O2 Flow Rate FiO2 01/05/17 08:00 98.3 94 19 133/77 94 01/05/17 05:05 18 01/05/17 04:18 18 01/05/17 04:00 97.9 102 20 133/72 92 01/05/17 00:00 97.1 103 20 146/74 98 01/04/17 22:00 18 01/04/17 20:00 96.9 110 20 141/78 96 01/04/17 16:08 98.0 75 20 118/61 93 01/04/17 14:37 14 01/04/17 13:02 15 01/04/17 12:32 22 01/04/17 12:00 99 01/04/17 12:00 98.0 99 22 135/70 99 01/05/17 07:00 Intake Total 480 ml Output Total 695 ml Balance -215 ml (Kanika Avila) Review of Systems/Exam Exam Mr. Mae is alert and oriented x 3. Speech is appropriate. Cranial nerve examination: pupils eequal, round, and reactive to light. Neck: soft, supple HALEY drain with minimal drainage. Muscle strength: In the lower extremities, strength is 5/5 bilateral iliopsoas, quadriceps, hamstrings, bilateral plantar flexion, dorsiflexion, and extensor hallicus longus with improvement of right lower extremity pain. Sensory examination is intact to light touch in lower extremities Plantars downgoing b/l (Kanika Avila) Medications Current Medications Current Medications Medications (Trade) Dose Ordered Sig/Nilo Route PRN Reason Start Time Stop Time Status Last Admin Dose Admin Polyethylene Glycol (Miralax) 17 gm DAILY PO 12/31/16 09:00 01/04/17 09:59 Magnesium Hydroxide (Milk Of Magnesia Liq) 30 ml DAILY PRN PO CONSTIPATION 12/30/16 14:30 Ondansetron HCl (Zofran Inj) 4 mg Q6HR PRN IV PUSH NAUSEA OR VOMITING 01/01/17 11:30 01/03/17 09:49 IV Flush (NS Flush) 2 ml UNSCH PRN IVF FLUSH AFTER USING IV ACCESS 01/02/17 14:15 IV Flush (NS Flush) 2 ml BID IVF 01/02/17 21:00 01/04/17 09:00 Pantoprazole Sodium (Protonix Inj) 40 mg DAILY IVP 01/03/17 09:00 01/04/17 10:00 Morphine Sulfate (Morphine Inj) 2 mg Q2H PRN IV PUSH PAIN SCALE 1 TO 6 01/02/17 14:15 Morphine Sulfate (Morphine Inj) 4 mg Q2H PRN IV PUSH PAIN SCALE 7 TO 10 01/02/17 14:15 01/02/17 19:02 Acetaminophen (Tylenol) 650 mg Q4H PRN PO TEMPERATURE > 101.5 F 01/02/17 14:15 Naloxone HCl (Narcan Inj) 0.4 mg UNSCH PRN IV RESPIRATORY RATE LESS THAN 10 01/02/17 14:15 Diphenhydramine HCl (Benadryl Inj) 25 mg Q6H PRN IV ITCHING 01/02/17 14:15 Hydromorphone HCl (Dilaudid BEHAVIORAL HEALTH ASSISTANT Inj) 6 mg UNSCH IV 01/02/17 14:15 01/05/17 04:18 BEHAVIORAL HEALTH ASSISTANT Dosage Infused (Pha) 1 Q8HR .XX 01/02/17 22:00 01/05/17 05:05 Senna/Docusate Sodium (Ese-Colace) 1 tab BID PO 01/04/17 09:00 01/04/17 09:59 Simethicone (Phazyme Chew) 125 mg Q8HR PRN PO flatulence 01/04/17 08:45 01/04/17 10:16 (Kanika Avila) Medical Decision Making MDM Remarks 56 y/o male with intractable lumbar and radiculopathy, spine metastases, L4 fracture with retropulsion and canal stenosis s/p ORIF L4 fracture, L2 to S1 posterolateral fixation Lung mass - mixed squamous cell and adenocarcinoma per pathology (Kanika Avila) Plan Plan Remarks cont therapy, recommend course of inpatient rehab for discharge TLSO when out of bed dc dilauded BEHAVIORAL HEALTH ASSISTANT, start oral medications prn pain dc HALEY drain f/u oncology, and radiation oncology for treatment f/u lumbar spine pathology clear to dc rehab from [facility] standpoint (Kanika Avila) Attending Statement The exam, history, and the medical decision-making described in the above note were completed with the assistance of the mid-level provider. I reviewed and agree with the findings presented. I attest that I had a [id number] encounter with the patient on the same day, and personally performed and documented my assessment and findings in the medical record. (Ricki Combs MD) Kanika Avila Jan 05, 2017 11:24 Ricki Combs MD Jan 06, 2017 20:45
[2017-01-05] MEDS ORDERED: ACETAMINOPHEN/HYDROcodone 325 MG/10 MG TAB PO PRN (11:30)
--- NOTE | 2017-01-05 11:45 | PD.ONC.PN ---
Subjective Subjective Remarks Afebrile overnight. Patient having some soreness in his legs and back after working with PT over the weekend. He states he walked a good distance, and that was the first time he had walked in two weeks. Objective Data Date Time Temp Pulse Resp B/P Pulse Ox O2 Delivery O2 Flow Rate FiO2 01/05/17 08:00 98.3 94 19 133/77 94 01/05/17 05:05 18 01/05/17 04:18 18 01/05/17 04:00 97.9 102 20 133/72 92 01/05/17 00:00 97.1 103 20 146/74 98 01/04/17 22:00 18 01/04/17 20:00 96.9 110 20 141/78 96 01/04/17 16:08 98.0 75 20 118/61 93 01/04/17 14:37 14 01/04/17 13:02 15 01/04/17 12:32 22 01/04/17 12:00 99 01/04/17 12:00 98.0 99 22 135/70 99 01/05/17 01/05/17 01/05/17 07:00 15:00 23:00 Intake Total 240 ml Output Total 10 ml Balance 230 ml Result Diagram: 01/05/17 0824 01/05/17 0824 Laboratory Results Laboratory Tests Test 01/05/17 08:24 White Blood Count 28.6 TH/MM3 Red Blood Count 3.27 MIL/MM3 Hemoglobin 9.0 GM/DL Hematocrit 28.0 % Mean Corpuscular Volume 85.6 FL Mean Corpuscular Hemoglobin 27.5 PG Mean Corpuscular Hemoglobin 32.2 % Concent Red Cell Distribution Width 14.3 % Platelet Count 384 TH/MM3 Mean Platelet Volume 7.4 FL Sodium Level 138 MEQ/L Potassium Level 4.3 MEQ/L Chloride Level 100 MEQ/L Carbon Dioxide Level 29.7 MEQ/L Anion Gap 8 MEQ/L Blood Urea Nitrogen 12 MG/DL Creatinine 0.74 MG/DL Estimat Glomerular Filtration 109 ML/MIN Rate Random Glucose 99 MG/DL Calcium Level 9.3 MG/DL Culture Results Microbiology Date/Time Procedure Status Source Growth 01/02/17 14:30 Urine Culture - Final Complete Urine Catheterized Urine NO GROWTH IN 48 HOURS. 01/02/17 14:30 Fungal Smear - Final Complete Urine Catheterized Urine 01/02/17 14:30 Fungal Culture - Final Complete Urine Catheterized Urine 01/02/17 14:30 Acid Fast Stain - Final Resulted Urine Catheterized Urine 01/02/17 14:30 Mycobacterial Culture Resulted Urine Catheterized Urine Pending Administered Medications Medications (Trade) Dose Ordered Sig/Nilo Route PRN Reason Start Time Stop Time Status Last Admin Dose Admin Polyethylene Glycol (Miralax) 17 gm DAILY PO 12/31/16 09:00 01/04/17 09:59 Ondansetron HCl (Zofran Inj) 4 mg Q6HR PRN IV PUSH NAUSEA OR VOMITING 01/01/17 11:30 01/03/17 09:49 IV Flush (NS Flush) 2 ml BID IVF 01/02/17 21:00 01/04/17 09:00 Pantoprazole Sodium (Protonix Inj) 40 mg DAILY IVP 01/03/17 09:00 01/04/17 10:00 TREE GIRDLER Dosage Infused (Pha) 1 Q8HR .XX 01/02/17 22:00 01/05/17 05:05 Senna/Docusate Sodium (Ese-Colace) 1 tab BID PO 01/04/17 09:00 01/04/17 09:59 Simethicone (Phazyme Chew) 125 mg Q8HR PRN PO flatulence 01/04/17 08:45 01/04/17 10:16 Objective Remarks GENERAL: Middle aged male, supine in bed in nad SKIN: Warm and dry. HEAD: Normocephalic. EYES: No injection or drainage. NECK: Supple, trachea midline. CARDIOVASCULAR: Regular rate and rhythm RESPIRATORY: Breath sounds equal bilaterally. No accessory muscle use. GASTROINTESTINAL: Abdomen soft, non-tender, nondistended. EXTREMITIES: No cyanosis NEUROLOGICAL: awake and alert. normal speech. moving all extremities. Assessment/Plan Assessment 56y/o male with newly diagnosed stage IV lung cancer Plan 1. consult invasive radiology for port placement 2. continue PT per neurosurgery 3. once healed from surgery, plan to start chemotherapy Denice Hubbard Jan 05, 2017 11:45
--- NOTE | 2017-01-05 14:01 | HHI.PR ---
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 Date of admission 12/30/2016. Date of consult 2016. Asked medical history includes chronic low back pain requiring TATO 1 and melanoma in situ status post excision 2012. Patient was in normal state of health until 10/10 when he developed acute low back pain. He proceeded to a care facility was treated with Advil without success. He is also seen a chiropractor for relief. He used Advil 200 milligrams four pills 3x a day for the past 4-5 weeks in order to control the pain. He recently saw his primary care physician, Dr. Sherin Vizcaino. Dr. Vizcaino ordered an MRI of the lumbar spine on 2016without contrast. He was found to have a focal bone lesion at L3, S1 and possibly T12. There was edema and around 50% collapse of the central aspect of the L4 vertebral which appeared pathologic. There was extension beyond the vertebral body margin at the posterior right lateral aspect of the L4 vertebral body. The bulging of the L4 vertebral body caused a moderate impression on the thecal sac. A Chest x-ray which showed an abnormal density, measuring 7.8 cm in the posterior and medial right mid lung field. Patient was a direct admit on 12/30/16 underlying pain speed workup. He is also noted to be taken to the creatinine of 3. This is thought to be secondary to NSAID usage. Seen by aviation boatswain's mate hospitalization and receiving IV fluids. Creatinine currently 1.2. At this facility, patient received the following imaging MRI L-spine - L4 marrow replacing process with pathologic collapse 50% loss of vertebral height. Bony retropulsion of the anterior epidural space. Severe canal stenosis7 to [address] chest - right lower lobe 9.9 x 6.7 cm mass encasing the right lower lobe with significant bilateral nodules large in size 2.1 mm left lower lobe. Patient also with significant subcarinal,'s sperm mediastinal and left axillary lymphadenopathy. 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 Today, patient after creatinine is stabilized underwent ORIF of his L4 fracture with L2 through S1 posterior lateral fixation with pedicle screws and rods by Dr. Combs 2900 crystalloid in OR. 350 EBL. 600 cc urine output. Patient currently has 1 HALEY with bloody drainage. Currently seen in PACU nasal cannula. 01/03: Afebrile. Feels much better as pain low back/right lower extremity much improved. On Dilaudid CUSTOMER SUPPORT ASSISTANT. Afebrile. Hemoglobin remained stable. Adequate urine output 01/04: Afebrile. Able to use barely stand yesterday that happy with the. Pain controlled with Dilaudid CUSTOMER SUPPORT ASSISTANT. Laboratories pending. Kidd still in place. A line discontinued. Hospitalist Notes: 01/05: Seen in his bedroom in the presence of his , HALEY drain in place, as per Neurosurgery for Rehab facility, placed an order for HHC asked by Real Estate Services Administrator, NO nausea, vomit or diarrhea. therapeutic sales specialist following , consulted Invasive Radiology for Port Placement, to continue PT and Neurosurgery, once healed from surgery to start chemotherapy. TLSO when out of bed, discontinued Dilaudid Pump and HALEY drain, clear for rehab as per Neurosurgery. Objective Vital Signs Date Time Temp Pulse Resp B/P Pulse Ox O2 Delivery O2 Flow Rate FiO2 01/05/17 12:00 98.0 98 19 114/60 94 01/05/17 10:25 92 Nasal Cannula 3.00 01/05/17 08:00 98.3 94 19 133/77 94 01/05/17 05:05 18 01/05/17 04:18 18 01/05/17 04:00 97.9 102 20 133/72 92 01/05/17 00:00 97.1 103 20 146/74 98 01/04/17 22:00 18 01/04/17 20:00 96.9 110 20 141/78 96 01/04/17 16:08 98.0 75 20 118/61 93 01/04/17 14:37 14 I/O 01/04/17 01/04/17 01/04/17 01/05/17 01/05/17 01/05/17 07:00 15:00 23:00 07:00 15:00 23:00 Intake Total 503 ml 240 ml 240 ml Output Total 1030 ml 685 ml 10 ml Balance -527 ml -445 ml 230 ml Intake Oral 140 ml 240 ml 240 ml IV Total 363 ml Output Urine Total 1000 ml 650 ml Drainage Total 30 ml 35 ml 10 ml # Voids 1 1 # Bowel Movements 0 0 Result Diagram: 01/05/1724 01/05/1724 Imaging Last Impressions Lumbar Spine MRI 01/01/17 0000 Signed Impressions: Service Date/Time: December 16:32 - CONCLUSION: Presumed metastatic disease with pathologic fracture at L4. Moderate associated canal stenosis. Konstantin Bingham MD Lung Biopsy CT 12/31/16 0716 Signed Impressions: Service Date/Time: Saturday, December 31, 2016 08:29 - CONCLUSION: Uncomplicated CT guided biopsy of the right lung mass. Preliminary pathology interpretation is a cellular specimen.. John Bravo MD FACR Chest X-Ray 12/31/16 0000 Signed Impressions: Service Date/Time: Saturday, December 31, 2016 10:55 - CONCLUSION: There is no pneumothorax. John Bravo MD FACR Chest CT 12/30/16 0000 Signed Impressions: Service Date/Time: Friday, December 30, 2016 19:08 - CONCLUSION: 1. Large right lower lobe mass extending into the hilum. 2. Numerous bilateral metastatic pulmonary nodules. 3. Metastatic adenopathy in the right peritracheal and subcarinal regions. There is also superior mediastinal adenopathy and left axillary adenopathy. Milan Mccallum MD Brain MRI 12/30/16 0000 Signed Impressions: Service Date/Time: Friday, December 30, 2016 19:22 - CONCLUSION: 1. Minimal nonspecific white matter changes. 2. No definite metastatic disease. Milan Mccallum MD Abdomen/Pelvis CT 12/30/16 0000 Signed Impressions: Service Date/Time: Friday, December 30, 2016 19:08 - CONCLUSION: 1. Right lower lobe mass and numerous bilateral pulmonary nodules. 2. There are prominent lymph nodes in the region of the dacia hepatis presumed metastatic. 3. The remainder of the abdomen/pelvis is otherwise unremarkable. Milan Mccallum MD Procedures ORIF L4 fracture with L2/S1 posterolateral fixation with Pedicle screws and rods secondary to L4 Vertebral fracture with severe canal stenosis Other Results Laboratory Tests Test 01/01/17 01/02/17 01/02/17 01/02/17 05:54 08:34 10:07 13:35 Troponin I LESS THAN 0.02 NG/ML Antibody Screen NEGATIVE Crossmatch Leukocyte-Reduced Red Blood Cells Blood Bank Comment Blood Type A NEGATIVE Blood Gas Puncture Site DRAWN IN OR Blood Gas Patient Temperature 98.6 Blood Gas HCO3 23 mmol/L Blood Gas Base Excess -1.5 mmol/L Blood Gas Oxygen Saturation 96 % Arterial Blood pH 7.38 Arterial Blood Partial 40 mmHg Pressure CO2 Arterial Blood Partial 165 mmHg Pressure O2 Arterial Blood Oxygen Content 14.3 Vol % Arterial Blood 1.7 % Carboxyhemoglobin Arterial Blood Methemoglobin 1.3 % Blood Gas Hemoglobin 10.3 G/DL Oxygen Delivery Device OR Test 01/02/17 01/04/17 01/05/17 17:30 11:11 08:24 Nasal Screen MRSA (PCR) MRSA NOT DETECTED Neutrophils (%) (Auto) % Lymphocytes (%) (Auto) % Monocytes (%) (Auto) % Eosinophils (%) (Auto) % Basophils (%) (Auto) % Neutrophils # (Auto) TH/MM3 Lymphocytes # (Auto) TH/MM3 Monocytes # (Auto) TH/MM3 Eosinophils # (Auto) TH/MM3 Basophils # (Auto) TH/MM3 CBC Comment AUTO DIFF Differential Total Cells 100 Counted Neutrophils % (Manual) 38 % Band Neutrophils % 8 % Lymphocytes % 1 % Monocytes % 5 % Eosinophils % 47 % Neutrophils # (Manual) 18.3 TH/MM3 Myelocytes 1 % Differential Comment FINAL DIFF MANUAL Toxic Vacuolation PRESENT Platelet Estimate NORMAL Platelet Morphology Comment NORMAL White Blood Count 28.6 TH/MM3 Red Blood Count 3.27 MIL/MM3 Hemoglobin 9.0 GM/DL Hematocrit 28.0 % Mean Corpuscular Volume 85.6 FL Mean Corpuscular Hemoglobin 27.5 PG Mean Corpuscular Hemoglobin 32.2 % Concent Red Cell Distribution Width 14.3 % Platelet Count 384 TH/MM3 Mean Platelet Volume 7.4 FL Sodium Level 138 MEQ/L Potassium Level 4.3 MEQ/L Chloride Level 100 MEQ/L Carbon Dioxide Level 29.7 MEQ/L Anion Gap 8 MEQ/L Blood Urea Nitrogen 12 MG/DL Creatinine 0.74 MG/DL Estimat Glomerular Filtration 109 ML/MIN Rate Random Glucose 99 MG/DL Calcium Level 9.3 MG/DL Objective Remarks GENERAL: No acute distress. SKIN: Warm and dry. No rash HEAD: Atraumatic. Normocephalic. EYES: Pupils equal and round about 3 mm bilaterally and reactive. No scleral icterus. No injection or drainage. ENT: No nasal bleeding or discharge. Mucous membranes pink and moist. NECK: Trachea midline. No JVD. CARDIOVASCULAR: Regular rate and rhythm. S1, S2. No S4. RESPIRATORY: Clear to auscultation. Breath sounds equal bilaterally. The magical excursion GASTROINTESTINAL: Abdomen soft, non-tender, obese. Hypoactive bowel sounds MUSCULOSKELETAL: Extremities without significant peripheral edema. No obvious deformities. NEUROLOGICAL: Awake and oriented to person place time and year. HALEY drain in place on my evaluation. Medications and IVs Current Medications Medications (Trade) Dose Ordered Sig/Nilo Route Start Time Stop Time Status Last Admin (Miralax) 17 gm DAILY PO 12/31/16 09:00 01/04/17 09:59 (Milk Of Magnesia Liq) 30 ml DAILY PRN PO 12/30/16 14:30 (Zofran Inj) 4 mg Q6HR PRN IV PUSH 01/01/17 11:30 01/03/17 09:49 (NS Flush) 2 ml UNSCH PRN IVF 01/02/17 14:15 (NS Flush) 2 ml BID IVF 01/02/17 21:00 01/04/17 09:00 (Protonix Inj) 40 mg DAILY IVP 01/03/17 09:00 01/05/17 08:05 (Morphine Inj) 2 mg Q2H PRN IV PUSH 01/02/17 14:15 (Tylenol) 650 mg Q4H PRN PO 01/02/17 14:15 (Narcan Inj) 0.4 mg UNSCH PRN IV 01/02/17 14:15 (Benadryl Inj) 25 mg Q6H PRN IV 01/02/17 14:15 CUSTOMER SUPPORT ASSISTANT Dosage Infused (Pha) 1 Q8HR .XX 01/02/17 22:00 01/05/17 05:05 (Ese-Colace) 1 tab BID PO 01/04/17 09:00 01/04/17 09:59 (Phazyme Chew) 125 mg Q8HR PRN PO 01/04/17 08:45 01/04/17 10:16 ([place] 10-325 Mg) 1 tab Q4H PRN PO 01/05/17 11:30 ([place] 10-325 Mg) 2 tab Q4H PRN PO 01/05/17 11:30 A/P Assessment and Plan 1. Status post ORIF L4 fracture with L2/S1 posterolateral fixation with Pedicle screws and rods secondary to L4 Vertebral fracture with severe canal stenosis Neurosurgery following, to continue Pain management. ordered by Neurosurgery to remove HALEY drain and Dilaudid pump, okay to discharge to Rehab. 2. Squamous Cell Lung cancer, CT chest revealed 9.9 x 6.7 cm right lower lobe mass with Lymphadenopathy encasing the right lower lobe, Continue Bronchodilator, asked for Port placement for Chemotherapy. 3. Right Lower lobe liver metastases 2.5 x 1.6 cm, on PPIs. 4. 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 status post Lung Biopsy, will need Radiation therapy, followed by Oncology Doctor Berenice Port placement prior to discharge. 5. Chronic Back pain Prophylaxis - GI -currently not indicated - DVT - SCD Discussed with Patient and in the room. Discharge Planning Expected by Oncology Soon already cleared by Neurosurgery. Ezekiel Mercer MD Jan 05, 2017 14:01 Kidd catheter has been placed for accurate I's and O's in a critically ill patient remove as clinically indicated Endo: Sliding-scale insulin if indicated Renal: Acute kidney injury secondary to NSAID usage - resolved Followed by nephrology Neo signed off. Creatinine currently within normal limits. Monitor BMP in a.m. 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 Will need radiation therapy after chemotherapy initiated status post wound healing from surgical procedures above Followed by Dr. Ngoncology and radiation oncology Monitor CBC daily. Follow trends Will have a port placed prior to discharge. Currently working up the specifics for poorly differentiated down and squamous cell carcinoma ID: Postoperative antibiotics per neurosurgery. Ancef 2 g IV every 8 hours to be completed Monitor for signs and symptoms infection MSK: Chronic back pain PT evaluate and treat. Prior to OR decreased strengthpain right lower extremity FEN: Replace electrolytes is clinically indicated Access - Utilize 2 right upper extremity peripheral IV. Central line if indicated - Left radial arterial line placed 01/02 in OR discontinued 01/03 Kidd be discontinued today Prophylaxis - GI -currently not indicated - DVT - SCD/pharmacological prophylaxis when okay with neurosurgery Ezekiel Mercer MD Jan 05, 2017 14:01
--- NOTE | 2017-01-05 14:33 | HHI.FF ---
Face to Face Verification Diagnosis: (1) Stage IV squamous cell carcinoma of lung (2) Stage IV adenocarcinoma of lung Physical Therapy Order: Evaluate and Treat, Improve ambulation, Strength and gait training Home Health Nursing Order: Medical education Signs/symptoms of disease process Medication education-adverse effect Nursing assessment with vital signs I have seen patient Ymei Mae on 01/05/17. My clinical findings support the need for the requested home health care services because: Ltd mobility - disease progression Deconditioned w/ increased weakness I certify that my clinical findings support that this patient is homebound because: Unsafe to leave home unassisted Ezekiel Mercer MD Jan 05, 2017 14:33
[2017-01-05] MEDS: ACETAMINOPHEN/HYDROcodone 325 MG/10 MG TAB PO PRN ×2 (15:45→20:03)
[2017-01-06] VITALS (10 sets, daily range): BP systolic 108–165; BP diastolic 66–91; PULSE 90–111; RESP 18–19; TEMP 96.6–99.2; O2SAT 91–96
[2017-01-06] MEDS: ACETAMINOPHEN/HYDROcodone 325 MG/10 MG TAB PO PRN ×4 (01:43→22:04)
[2017-01-06] MEDS: PCA - TOTAL MG DILAUDID DELIVERED PER SHIFT SCH (05:04)
[2017-01-06] MEDS ORDERED: LIDOCAINE 1%/EPINEPHrine 1:100,000 SOLN 30 ML VIAL ONE (08:50)
[2017-01-06] MEDS ORDERED: fentaNYL CITRATE 250 MCG/5 ML AMP ONE (08:57)
[2017-01-06] MEDS ORDERED: MIDAZOLAM HCL 5 MG/5 ML VIAL ONE (08:57)
--- NOTE | 2017-01-06 10:06 | PD.RAD ---
Post Procedure Progress Note Pre Procedure Diagnosis: (1) Lung mass (2) Stage IV adenocarcinoma of lung Post Procedure Diagnosis: (1) Lung mass (2) Stage IV adenocarcinoma of lung Procedure Date: Jan 06, 2017 Supervising Radiologist: Ezequiel Larson Proceduralist/Assist: French Roberts, RT(R), Kailyn Cha RT(R)() Estimated blood loss: <10 ml Plan of Activity Patient to Unit: Nursing Unit Patient Condition: Good Additional Comments: tip at [facility] See PACS Report for procedural detail/treatment Ezequiel Larson MD Jan 06, 2017 10:06
--- NOTE | 2017-01-06 10:38 | RADRPT ---
EXAM DATE/TIME: 01/06/2017 10:17 [facility] COMPARISON: No previous studies available for comparison. INDICATIONS : Patient is in need of placement of a right sided Infusaport for chemotherapy treatment of metastatic lung cancer. MEDICAL HISTORY : History of lung mass, melanoma, metastases to bone, sciatica. SURGICAL HISTORY : History of shoulder melanoma resection. ENCOUNTER: Initial ACUITY: 2 months PAIN SCORE: 0/10 FLUORO TIME: 0.1 minutes IMAGE SERIES: 0 SEDATION TIME: 45 minutes ACCESS: Right internal jugular vein SEDATION: 1.) 3 mg midazolam (Versed) IV 2.) 150 mcg fentanyl (Sublimaze) IV Prophylactic antibiotics were administered with appropriate pre-procedure timing. Vancomycin within 2 hours of procedure, Ancef (or alternative) within 1 hour of procedure. DEVICE: 1. 8 [place] Power Port PROCEDURE : 1. Continuous pulse oximetry and EKG monitoring. 2. Intravenous conscious sedation. 3. Ultrasound guidance for venous access. 4. Fluoroscopic guided implantable central venous port placement. The patient was placed supine. The neck was prepped in sterile fashion. Full sterile technique was u sed, including cap, mask, sterile gloves and gown, and a large sterile sheet. Hand hygiene and 2% ch lorhexidine Betadine was utilized per protocol for cutaneous antisepsis with appropriate dry time for site. The skin and subcutaneous tissues were infiltrated with local anesthetic solution. Under direct ultrasound guidance, central venous access was accomplished in the targeted vessel. The ultrasound images depicting access guidance were stored and saved to PACS for permanent record. A s ubcutaneous pocket was created using blunt dissection. The port was introduced to the pocket. The c atheter tubing was fed through a subcutaneous tunnel to the venotomy site. The catheter tubing was c ut to a suitable length and then was introduced through a valved Peel-Away sheath and positioned with catheter tubing tip at the cavo-atrial junction level. The pocket incision was closed with subcutic ular Vicryl suture. Steri-Strips were applied. The port was flushed and locked with heparin solutio n per protocol. Sterile dressing was applied to the site. The patient tolerated the procedure well. Conscious sedation was performed with the prescribed dosages and duration as above in the presence of an independent trained radiology nurse to assist in the monitoring of the patient. EKG and oximetry remained stable throughout the procedure. The patient tolerated the procedure well and there were no complications. The patient was sent to post anesthesia recovery in stable condition. CONCLUSION: Uncomplicated ultrasound and fluoroscopic guided implanted central venous port catheter placement as described in detail above. An 8 [place] Power port was placed. Ezequiel Larson MD on January 06, 2017 at 10:36 Board Certified Radiologist. This report was verified electronically.
[2017-01-06] MEDS ORDERED: DO NOT ADM ANY ANTICOAGULANT DRUGS PRN ×2 (12:30→12:45)
[2017-01-06] MEDS: POLYETHYLENE GLYCOL 17 GM PKG PO SCH (12:49)
[2017-01-06] MEDS: DOCUSATE SODIUM 50 MG/SENNA 8.6 MG TAB PO SCH ×2 (12:49→22:04)
[2017-01-06] MEDS: PANTOPRAZOLE SODIUM 40 MG VIAL IVP SCH (12:53)
[2017-01-06] MEDS: SODIUM CHLORIDE 0.9% FLUSH 10 ML FLUSH IVF PRN ×3 (12:55→22:05)
--- NOTE | 2017-01-06 13:02 | HHI.PR ---
Subjective Remarks Boiler Tender Notes: 56-year-old male. Date of admission 12/30/2016. Date of consult 2016. Asked medical history includes chronic low back pain requiring TATO 1 and melanoma in situ status post excision 2012. Patient was in normal state of health until 10/10 when he developed acute low back pain. He proceeded to a care facility was treated with Advil without success. He is also seen a chiropractor for relief. He used Advil 200 milligrams four pills 3x a day for the past 4-5 weeks in order to control the pain. He recently saw his primary care physician, Dr. Sherin Vizcaino. Dr. Vizcaino ordered an MRI of the lumbar spine on 2016without contrast. He was found to have a focal bone lesion at L3, S1 and possibly T12. There was edema and around 50% collapse of the central aspect of the L4 vertebral which appeared pathologic. There was extension beyond the vertebral body margin at the posterior right lateral aspect of the L4 vertebral body. The bulging of the L4 vertebral body caused a moderate impression on the thecal sac. A Chest x-ray which showed an abnormal density, measuring 7.8 cm in the posterior and medial right mid lung field. Patient was a direct admit on 12/30/16 underlying pain speed workup. He is also noted to be taken to the creatinine of 3. This is thought to be secondary to NSAID usage. Seen by washer hand hospitalization and receiving IV fluids. Creatinine currently 1.2. At this facility, patient received the following imaging MRI L-spine - L4 marrow replacing process with pathologic collapse 50% loss of vertebral height. Bony retropulsion of the anterior epidural space. Severe canal stenosis7 to [address] chest - right lower lobe 9.9 x 6.7 cm mass encasing the right lower lobe with significant bilateral nodules large in size 2.1 mm left lower lobe. Patient also with significant subcarinal,'s sperm mediastinal and left axillary lymphadenopathy. 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 Today, patient after creatinine is stabilized underwent ORIF of his L4 fracture with L2 through S1 posterior lateral fixation with pedicle screws and rods by Dr. Combs 2900 crystalloid in OR. 350 EBL. 600 cc urine output. Patient currently has 1 HALEY with bloody drainage. Currently seen in PACU nasal cannula. 01/03: Afebrile. Feels much better as pain low back/right lower extremity much improved. 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 Afebrile. Hemoglobin remained stable. Adequate urine output 01/04: Afebrile. Able to use barely stand yesterday that happy with the. Pain controlled with Dilaudid BARREL DEDENTING MACHINE OPERATOR. Laboratories pending. Kidd still in place. A line discontinued. Hospitalist Notes: 01/05: Seen in his bedroom in the presence of his , HALEY drain in place, as per Neurosurgery for Rehab facility, placed an order for HHC asked by Circulation Crew Leader, NO nausea, vomit or diarrhea. personnel security specialist following , consulted Invasive Radiology for Port Placement, to continue PT and Neurosurgery, once healed from surgery to start chemotherapy. TLSO when out of bed, discontinued Dilaudid Pump and HALEY drain, clear for rehab as per Neurosurgery. 01/06: Seen in his bedroom, stable okay for discharge from Neurosurgery, No nausea, vomit or diarrhea, discussed with nurse Miss Page Objective Vital Signs Date Time Temp Pulse Resp B/P Pulse Ox O2 Delivery O2 Flow Rate FiO2 01/06/17 12:00 96.9 102 18 133/78 96 01/06/17 10:50 104 19 148/72 92 01/06/17 10:20 103 18 152/76 93 01/06/17 10:05 98.3 107 19 139/66 92 01/06/17 08:00 97.8 90 18 139/91 92 01/06/17 04:00 98.5 90 18 108/75 93 01/06/17 02:46 18 01/06/17 00:00 96.6 90 18 165/81 95 01/05/17 20:00 98.1 89 18 140/79 95 01/05/17 16:00 95.8 97 19 129/67 96 01/05/17 14:00 17 I/O 01/05/17 01/05/17 01/05/17 01/06/17 01/06/17 01/06/17 07:00 15:00 23:00 07:00 15:00 23:00 Intake Total 240 ml 240 ml Output Total 10 ml 800 ml 2125 ml 850 ml Balance 230 ml -560 ml -2125 ml -850 ml Intake Oral 240 ml 240 ml Output Urine Total 800 ml 2125 ml 850 ml Drainage Total 10 ml # Voids 1 1 # Bowel Movements 0 1 Result Diagram: 01/05/1782301/05/1724 Imaging Last Impressions Port Line Insertion 01/06/17 0000 Signed Impressions: Service Date/Time: Friday, January 06, 2017 10:17 - CONCLUSION: Uncomplicated ultrasound and fluoroscopic guided implanted central venous port catheter placement as described in detail above. An 8 [place] Power port was placed. Ezequiel Larson MD Lumbar Spine MRI 01/01/17 0000 Signed Impressions: Service Date/Time: December 16:32 - CONCLUSION: Presumed metastatic disease with pathologic fracture at L4. Moderate associated canal stenosis. Konstantin Bingham MD Lung Biopsy CT 12/31/16 0716 Signed Impressions: Service Date/Time: Saturday, December 31, 2016 08:29 - CONCLUSION: Uncomplicated CT guided biopsy of the right lung mass. Preliminary pathology interpretation is a cellular specimen.. John Bravo MD FACR Chest X-Ray 12/31/16 0000 Signed Impressions: Service Date/Time: Saturday, December 31, 2016 10:55 - CONCLUSION: There is no pneumothorax. John Bravo MD FACR Chest CT 12/30/16 0000 Signed Impressions: Service Date/Time: Friday, December 30, 2016 19:08 - CONCLUSION: 1. Large right lower lobe mass extending into the hilum. 2. Numerous bilateral metastatic pulmonary nodules. 3. Metastatic adenopathy in the right peritracheal and subcarinal regions. There is also superior mediastinal adenopathy and left axillary adenopathy. Milan Mccallum MD Brain MRI 12/30/16 0000 Signed Impressions: Service Date/Time: Friday, December 30, 2016 19:22 - CONCLUSION: 1. Minimal nonspecific white matter changes. 2. No definite metastatic disease. Milan Mccallum MD Abdomen/Pelvis CT 12/30/16 0000 Signed Impressions: Service Date/Time: Friday, December 30, 2016 19:08 - CONCLUSION: 1. Right lower lobe mass and numerous bilateral pulmonary nodules. 2. There are prominent lymph nodes in the region of the dacia hepatis presumed metastatic. 3. The remainder of the abdomen/pelvis is otherwise unremarkable. Milan Mccallum MD Procedures ORIF L4 fracture with L2/S1 posterolateral fixation with Pedicle screws and rods secondary to L4 Vertebral fracture with severe canal stenosis Other Results Laboratory Tests Test 01/02/17 01/02/17 01/02/17 01/02/17 08:34 10:07 13:35 17:30 Antibody Screen NEGATIVE Crossmatch Leukocyte-Reduced Red Blood Cells Blood Bank Comment Blood Type A NEGATIVE Blood Gas Puncture Site DRAWN IN OR Blood Gas Patient Temperature 98.6 Blood Gas HCO3 23 mmol/L Blood Gas Base Excess -1.5 mmol/L Blood Gas Oxygen Saturation 96 % Arterial Blood pH 7.38 Arterial Blood Partial 40 mmHg Pressure CO2 Arterial Blood Partial 165 mmHg Pressure O2 Arterial Blood Oxygen Content 14.3 Vol % Arterial Blood 1.7 % Carboxyhemoglobin Arterial Blood Methemoglobin 1.3 % Blood Gas Hemoglobin 10.3 G/DL Oxygen Delivery Device OR Nasal Screen MRSA (PCR) MRSA NOT DETECTED Test 01/04/17 01/05/17 11:11 08:24 Neutrophils (%) (Auto) % Lymphocytes (%) (Auto) % Monocytes (%) (Auto) % Eosinophils (%) (Auto) % Basophils (%) (Auto) % Neutrophils # (Auto) TH/MM3 Lymphocytes # (Auto) TH/MM3 Monocytes # (Auto) TH/MM3 Eosinophils # (Auto) TH/MM3 Basophils # (Auto) TH/MM3 CBC Comment AUTO DIFF Differential Total Cells 100 Counted Neutrophils % (Manual) 38 % Band Neutrophils % 8 % Lymphocytes % 1 % Monocytes % 5 % Eosinophils % 47 % Neutrophils # (Manual) 18.3 TH/MM3 Myelocytes 1 % Differential Comment FINAL DIFF MANUAL Toxic Vacuolation PRESENT Platelet Estimate NORMAL Platelet Morphology Comment NORMAL White Blood Count 28.6 TH/MM3 Red Blood Count 3.27 MIL/MM3 Hemoglobin 9.0 GM/DL Hematocrit 28.0 % Mean Corpuscular Volume 85.6 FL Mean Corpuscular Hemoglobin 27.5 PG Mean Corpuscular Hemoglobin 32.2 % Concent Red Cell Distribution Width 14.3 % Platelet Count 384 TH/MM3 Mean Platelet Volume 7.4 FL Sodium Level 138 MEQ/L Potassium Level 4.3 MEQ/L Chloride Level 100 MEQ/L Carbon Dioxide Level 29.7 MEQ/L Anion Gap 8 MEQ/L Blood Urea Nitrogen 12 MG/DL Creatinine 0.74 MG/DL Estimat Glomerular Filtration 109 ML/MIN Rate Random Glucose 99 MG/DL Calcium Level 9.3 MG/DL Objective Remarks GENERAL: No acute distress. SKIN: Warm and dry. No rash HEAD: Atraumatic. Normocephalic. EYES: Pupils equal and round about 3 mm bilaterally and reactive. No scleral icterus. No injection or drainage. ENT: No nasal bleeding or discharge. Mucous membranes pink and moist. NECK: Trachea midline. No JVD. CARDIOVASCULAR: Regular rate and rhythm. S1, S2. No S4. RESPIRATORY: Clear to auscultation. Breath sounds equal bilaterally. The magical excursion GASTROINTESTINAL: Abdomen soft, non-tender, obese. Hypoactive bowel sounds MUSCULOSKELETAL: Extremities without significant peripheral edema. No obvious deformities. NEUROLOGICAL: Awake and oriented to person place time and year. HALEY drain in place on my evaluation. Medications and IVs Current Medications Medications (Trade) Dose Ordered Sig/Nilo Route Start Time Stop Time Status Last Admin (Miralax) 17 gm DAILY PO 12/31/16 09:00 01/04/17 09:59 (Milk Of Magnesia Liq) 30 ml DAILY PRN PO 12/30/16 14:30 (Zofran Inj) 4 mg Q6HR PRN IV PUSH 01/01/17 11:30 01/03/17 09:49 (NS Flush) 2 ml UNSCH PRN IVF 01/02/17 14:15 (NS Flush) 2 ml BID IVF 01/02/17 21:00 01/05/17 21:17 (Protonix Inj) 40 mg DAILY IVP 01/03/17 09:00 01/05/17 08:05 (Morphine Inj) 2 mg Q2H PRN IV PUSH 01/02/17 14:15 (Tylenol) 650 mg Q4H PRN PO 01/02/17 14:15 (Narcan Inj) 0.4 mg UNSCH PRN IV 01/02/17 14:15 (Benadryl Inj) 25 mg Q6H PRN IV 01/02/17 14:15 BARREL DEDENTING MACHINE OPERATOR Dosage Infused (Pha) 1 Q8HR .XX 01/02/17 22:00 01/05/17 14:00 (Ese-Colace) 1 tab BID PO 01/04/17 09:00 01/05/17 21:17 (Phazyme Chew) 125 mg Q8HR PRN PO 01/04/17 08:45 01/04/17 10:16 ([place] 10-325 Mg) 1 tab Q4H PRN PO 01/05/17 11:30 ([place] 10-325 Mg) 2 tab Q4H PRN PO 01/05/17 11:30 01/06/17 01:43 (Heparin Central Flush) 500 units UNSCH IV FLUSH 01/06/17 10:15 (NS Flush) 5 ml UNSCH PRN IVF 01/06/17 10:15 (Heparin Central Flush) 250 units UNSCH PRN IV FLUSH 01/06/17 10:15 Miscellaneous Information ALL NURSING DEPARTME... UNSCH PRN .XX 01/06/17 12:30 01/07/17 12:29 A/P Assessment and Plan 1. Status post ORIF L4 fracture with L2/S1 posterolateral fixation with Pedicle screws and rods secondary to L4 Vertebral fracture with severe canal stenosis Neurosurgery following, to continue Pain management. ordered by Neurosurgery to remove HALEY drain and Dilaudid pump, okay to discharge to Rehab. 2. Squamous Cell Lung cancer, CT chest revealed 9.9 x 6.7 cm right lower lobe mass with Lymphadenopathy encasing the right lower lobe, Continue Bronchodilator, asked for Port placement for Chemotherapy. 3. Right Lower lobe liver metastases 2.5 x 1.6 cm, on PPIs. 4. 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 status post Lung Biopsy, will need Radiation therapy, followed by Oncology Doctor Ng Port placement prior to discharge. 5. Chronic Back pain Prophylaxis - GI -currently not indicated - DVT - SCD Discussed with Patient and Nurse. Discharge Planning Expected by Oncology Soon already cleared by Neurosurgery. Ezekiel Mercer MD Jan 06, 2017 13:01
[2017-01-06] MEDS: SODIUM CHLORIDE 0.9% FLUSH 5 ML FLUSH IVF SCH ×2 (13:04→21:00)
--- NOTE | 2017-01-06 19:06 | PD.ONC.PN ---
Subjective Subjective Remarks feels better. legs still weak and has to use walker. Objective Data Date Time Temp Pulse Resp B/P Pulse Ox O2 Delivery O2 Flow Rate FiO2 01/06/17 16:07 99.2 111 18 143/73 91 01/06/17 12:00 96.9 102 18 133/78 96 01/06/17 10:50 104 19 148/72 92 01/06/17 10:20 103 18 152/76 93 01/06/17 10:05 98.3 107 19 139/66 92 01/06/17 08:34 94 Nasal Cannula 2.00 01/06/17 08:00 97.8 90 18 139/91 92 01/06/17 04:00 98.5 90 18 108/75 93 01/06/17 02:46 18 01/06/17 00:00 96.6 90 18 165/81 95 01/05/17 20:00 98.1 89 18 140/79 95 01/06/17 01/06/17 01/06/17 07:00 15:00 23:00 Intake Total 240 ml Output Total 850 ml 725 ml Balance -850 ml -485 ml Result Diagram: 01/05/17 0824 01/05/17 0824 Imaging Studies Last 24 hours Impressions Port Line Insertion 01/06/17 0000 Signed Impressions: Service Date/Time: Friday, January 06, 2017 10:17 - CONCLUSION: Uncomplicated ultrasound and fluoroscopic guided implanted central venous port catheter placement as described in detail above. An 8 [place] Power port was placed. Ezequiel Larson MD Administered Medications Medications (Trade) Dose Ordered Sig/Nilo Route PRN Reason Start Time Stop Time Status Last Admin Dose Admin Polyethylene Glycol (Miralax) 17 gm DAILY PO 12/31/16 09:00 01/06/17 12:49 Ondansetron HCl (Zofran Inj) 4 mg Q6HR PRN IV PUSH NAUSEA OR VOMITING 01/01/17 11:30 01/03/17 09:49 IV Flush (NS Flush) 2 ml BID IVF 01/02/17 21:00 01/06/17 13:04 Pantoprazole Sodium (Protonix Inj) 40 mg DAILY IVP 01/03/17 09:00 01/06/17 12:53 FUR CUTTING MACHINE OPERATOR Dosage Infused (Pha) 1 Q8HR .XX 01/02/17 22:00 01/05/17 14:00 Senna/Docusate Sodium (Ese-Colace) 1 tab BID PO 01/04/17 09:00 01/06/17 12:49 Simethicone (Phazyme Chew) 125 mg Q8HR PRN PO flatulence 01/04/17 08:45 01/04/17 10:16 Acetaminophen/ Hydrocodone Bitart ([place] 10-325 Mg) 2 tab Q4H PRN PO PAIN SCALE 6 TO 10 01/05/17 11:30 01/06/17 18:38 Sodium Chloride (NS Flush) 5 ml UNSCH PRN IVF SEE PROTOCOL 01/06/17 10:15 01/06/17 13:01 Objective Remarks GENERAL: Well-nourished, well-developed patient. SKIN: Warm and dry. HEAD: Normocephalic. EYES: No scleral icterus. No injection or drainage. NECK: Supple, trachea midline. No JVD or lymphadenopathy. LYMPHATIC: No adenopathy. CARDIOVASCULAR: Regular rate and rhythm without murmurs. RESPIRATORY: Breath sounds equal bilaterally. No accessory muscle use. GASTROINTESTINAL: Abdomen soft, non-tender, nondistended. EXTREMITIES: No cyanosis, or edema. MUSCULOSKELETAL: Adequate muscle tone. NEUROLOGICAL: moderate proximal leg weakness bilaterally more on right. PSYCHIATRIC: Appropriate mood and affect; insight and judgment normal. Assessment/Plan Assessment 56y/o male with newly diagnosed stage IV lung cancer S/P L4 corpectomy. He is doing well post op. I spoke with Dr. Orozco this am and Dr. Orozco feels healing will be adequate to begin chemotherapy in a week. By that time should have the results of alk, egfr and pdl1 testing. He will probably be able to start radiation therapy to the LS spine in about 2 weeks. Nothing else need be done except for physical therapy and rehab to regain strength. Larry Ng MD Jan 06, 2017 19:06
[2017-01-06] MEDS: SIMETHICONE 125 MG CHEWABLE TAB PO PRN (22:37)
[2017-01-07] VITALS: BP 154/77; PULSE 95; RESP 18; TEMP 97.6; O2SAT 93
[2017-01-07 04:00] VITALS: BP 138/63; PULSE 92; RESP 18; TEMP 98.5; O2SAT 92
[2017-01-07 08:00] VITALS: BP 157/83; PULSE 91; RESP 16; TEMP 98.8; O2SAT 91
[2017-01-07] MEDS: POLYETHYLENE GLYCOL 17 GM PKG PO SCH (08:04)
[2017-01-07] MEDS: PANTOPRAZOLE SODIUM 40 MG VIAL IVP SCH (08:06)
[2017-01-07] MEDS: SODIUM CHLORIDE 0.9% FLUSH 10 ML FLUSH IVF PRN (08:06)
[2017-01-07] MEDS: DOCUSATE SODIUM 50 MG/SENNA 8.6 MG TAB PO SCH (08:07)
[2017-01-07] MEDS: SODIUM CHLORIDE 0.9% FLUSH 5 ML FLUSH IVF SCH (08:07)
--- NOTE | 2017-01-07 09:25 | PD.ONC.PN ---
Subjective Subjective Remarks Afebrile overnight. Patient resting in bed in nad. Still with some leg weakness, but slowly improving. Objective Data Date Time Temp Pulse Resp B/P Pulse Ox O2 Delivery O2 Flow Rate FiO2 01/07/17 08:00 98.8 91 16 157/83 91 01/07/17 04:00 98.5 92 18 138/63 92 01/07/17 00:00 97.6 95 18 154/77 93 01/06/17 20:00 98.2 99 18 137/79 92 01/06/17 16:07 99.2 111 18 143/73 91 01/06/17 12:00 96.9 102 18 133/78 96 01/06/17 10:50 104 19 148/72 92 01/06/17 10:20 103 18 152/76 93 01/06/17 10:05 98.3 107 19 139/66 92 01/07/17 01/07/17 01/07/17 07:00 15:00 23:00 Intake Total 360 ml Balance 360 ml Result Diagram: 01/05/1782301/05/1724 Administered Medications Medications (Trade) Dose Ordered Sig/Nilo Route PRN Reason Start Time Stop Time Status Last Admin Dose Admin Polyethylene Glycol (Miralax) 17 gm DAILY PO 12/31/16 09:00 01/07/17 08:04 Ondansetron HCl (Zofran Inj) 4 mg Q6HR PRN IV PUSH NAUSEA OR VOMITING 01/01/17 11:30 01/03/17 09:49 IV Flush (NS Flush) 2 ml BID IVF 01/02/17 21:00 01/07/17 08:07 Pantoprazole Sodium (Protonix Inj) 40 mg DAILY IVP 01/03/17 09:00 01/07/17 08:06 Senna/Docusate Sodium (Ese-Colace) 1 tab BID PO 01/04/17 09:00 01/07/17 08:07 Simethicone (Phazyme Chew) 125 mg Q8HR PRN PO flatulence 01/04/17 08:45 01/06/17 22:37 Acetaminophen/ Hydrocodone Bitart ([place] 10-325 Mg) 1 tab Q4H PRN PO PAIN SCALE 1 TO 5 01/05/17 11:30 01/07/17 06:02 Acetaminophen/ Hydrocodone Bitart ([place] 10-325 Mg) 2 tab Q4H PRN PO PAIN SCALE 6 TO 10 01/05/17 11:30 01/06/17 22:04 Sodium Chloride (NS Flush) 5 ml UNSCH PRN IVF SEE PROTOCOL 01/06/17 10:15 01/07/17 08:06 Objective Remarks GENERAL: Middle aged male, supine in bed in nad SKIN: Warm and dry. HEAD: Normocephalic. EYES: No injection or drainage. NECK: Supple, trachea midline. CARDIOVASCULAR: Regular rate and rhythm RESPIRATORY: Breath sounds equal bilaterally. No accessory muscle use. GASTROINTESTINAL: Abdomen soft, non-tender, nondistended. EXTREMITIES: No cyanosis NEUROLOGICAL: awake and alert. normal speech. some proximal leg weakness, distal lower extremity strength and upper extremity strength is good. Assessment/Plan Assessment 56y/o male with newly diagnosed stage IV lung cancer S/P L4 corpectomy. Plan 1. continue with physical therapy. ok to d/c to rehab 2. follow up in clinic upon discharge. will begin chemotherapy in ~1 week Attending Statement The exam, history, and the medical decision-making described in the above note were completed with the assistance of the mid-level provider. I reviewed and agree with the findings presented. I attest that I had a [id number] encounter with the patient on the same day, and personally performed and documented my assessment and findings in the medical record. exam reveal significant proximal leg weakness bilaterally which should improve with physical therapy. distal strength is excellent and spirits good. I spoke with last evening and reviewed plans for future care and anticipate outpatient chemotherapy in 1 week unless problems and shortly thereafter radiation to the LS spine. Care discussed with Dr. Orozco this am. Denice Hubbard Jan 07, 2017 09:25 Larry Ng MD Jan 07, 2017 18:42
[2017-01-07] MEDS: ACETAMINOPHEN/HYDROcodone 325 MG/10 MG TAB PO PRN ×2 (11:31→15:20)
[2017-01-07 11:36] VITALS: O2SAT 93
[2017-01-07 12:00] VITALS: BP 142/70; PULSE 115; RESP 16; TEMP 96.3; O2SAT 91
[2017-01-07] MEDS ORDERED: PROT40TA PO (15:29)
[2017-01-07] MEDS ORDERED: HYDR-3583 PO (15:29)
--- NOTE | 2017-01-07 15:37 | HHI.PR ---
Subjective Remarks Interventional Radiology Rn Notes: 56-year-old male. Date of admission 12/30/2016. Date of consult 2016. Asked medical history includes chronic low back pain requiring TATO 1 and melanoma in situ status post excision 2012. Patient was in normal state of health until 10/10 when he developed acute low back pain. He proceeded to a care facility was treated with Advil without success. He is also seen a chiropractor for relief. He used Advil 200 milligrams four pills 3x a day for the past 4-5 weeks in order to control the pain. He recently saw his primary care physician, Dr. Sherin Vizcaino. Dr. Vizcaino ordered an MRI of the lumbar spine on 2016without contrast. He was found to have a focal bone lesion at L3, S1 and possibly T12. There was edema and around 50% collapse of the central aspect of the L4 vertebral which appeared pathologic. There was extension beyond the vertebral body margin at the posterior right lateral aspect of the L4 vertebral body. The bulging of the L4 vertebral body caused a moderate impression on the thecal sac. A Chest x-ray which showed an abnormal density, measuring 7.8 cm in the posterior and medial right mid lung field. Patient was a direct admit on 12/30/16 underlying pain speed workup. He is also noted to be taken to the creatinine of 3. This is thought to be secondary to NSAID usage. Seen by technical photographer hospitalization and receiving IV fluids. Creatinine currently 1.2. At this facility, patient received the following imaging MRI L-spine - L4 marrow replacing process with pathologic collapse 50% loss of vertebral height. Bony retropulsion of the anterior epidural space. Severe canal stenosis7 to [address] chest - right lower lobe 9.9 x 6.7 cm mass encasing the right lower lobe with significant bilateral nodules large in size 2.1 mm left lower lobe. Patient also with significant subcarinal,'s sperm mediastinal and left axillary lymphadenopathy. 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 Today, patient after creatinine is stabilized underwent ORIF of his L4 fracture with L2 through S1 posterior lateral fixation with pedicle screws and rods by Dr. Combs 2900 crystalloid in OR. 350 EBL. 600 cc urine output. Patient currently has 1 HALEY with bloody drainage. Currently seen in PACU nasal cannula. 01/03: Afebrile. Feels much better as pain low back/right lower extremity much improved. On Dilaudid WEB FEEDER. Afebrile. Hemoglobin remained stable. Adequate urine output 01/04: Afebrile. Able to use barely stand yesterday that happy with the. Pain controlled with Dilaudid WEB FEEDER. Laboratories pending. Kidd still in place. A line discontinued. Hospitalist Notes: 01/05: Seen in his bedroom in the presence of his , HALEY drain in place, as per Neurosurgery for Rehab facility, placed an order for HHC asked by [employer], NO nausea, vomit or diarrhea. clinical operations specialist following , consulted Invasive Radiology for Port Placement, to continue PT and Neurosurgery, once healed from surgery to start chemotherapy. TLSO when out of bed, discontinued Dilaudid Pump and HALEY drain, clear for rehab as per Neurosurgery. 01/06: Seen in his bedroom, stable okay for discharge from Neurosurgery, No nausea, vomit or diarrhea, discussed with nurse Miss Merinoi 01/07: Stable in his bedroom, okay to discharge as per store receiving specialist recommended to discharge to Rehab and follow up in his Clinic and start Chemotherapy in one week, also discharged as per Neurosurgery. no nausea, vomit or diarrhea, he refused with his going to Rehab. will go home with [facility] for PT and half-way. Objective Vital Signs Date Time Temp Pulse Resp B/P Pulse Ox O2 Delivery O2 Flow Rate FiO2 01/07/17 12:00 96.3 115 16 142/70 91 01/07/17 11:36 93 Nasal Cannula 2.00 01/07/17 08:00 98.8 91 16 157/83 91 01/07/17 04:00 98.5 92 18 138/63 92 01/07/17 00:00 97.6 95 18 154/77 93 01/06/17 20:00 98.2 99 18 137/79 92 01/06/17 16:07 99.2 111 18 143/73 91 I/O 01/06/17 01/06/17 01/06/17 01/07/17 01/07/17 01/07/17 07:00 15:00 23:00 07:00 15:00 23:00 Intake Total 240 ml 360 ml Output Total 850 ml 725 ml 225 ml Balance -850 ml -485 ml 360 ml -225 ml Intake Oral 240 ml 360 ml Output Urine Total 850 ml 725 ml 225 ml # Voids 1 2 # Bowel Movements 0 Result Diagram: 01/05/17 0824 01/05/17 0824 Imaging Last Impressions Port Line Insertion 01/06/17 0000 Signed Impressions: Service Date/Time: Friday, January 06, 2017 10:17 - CONCLUSION: Uncomplicated ultrasound and fluoroscopic guided implanted central venous port catheter placement as described in detail above. An 8 [place] Power port was placed. Ezequiel Larson MD Lumbar Spine MRI 01/01/17 0000 Signed Impressions: Service Date/Time: December 16:32 - CONCLUSION: Presumed metastatic disease with pathologic fracture at L4. Moderate associated canal stenosis. Konstantin Bingham MD Lung Biopsy CT 12/31/16 0716 Signed Impressions: Service Date/Time: Saturday, December 31, 2016 08:29 - CONCLUSION: Uncomplicated CT guided biopsy of the right lung mass. Preliminary pathology interpretation is a cellular specimen.. John Bravo MD FACR Chest X-Ray 12/31/16 0000 Signed Impressions: Service Date/Time: Saturday, December 31, 2016 10:55 - CONCLUSION: There is no pneumothorax. John Bravo MD FACR Chest CT 12/30/16 0000 Signed Impressions: Service Date/Time: Friday, December 30, 2016 19:08 - CONCLUSION: 1. Large right lower lobe mass extending into the hilum. 2. Numerous bilateral metastatic pulmonary nodules. 3. Metastatic adenopathy in the right peritracheal and subcarinal regions. There is also superior mediastinal adenopathy and left axillary adenopathy. Milan Mccallum MD Brain MRI 12/30/16 0000 Signed Impressions: Service Date/Time: Friday, December 30, 2016 19:22 - CONCLUSION: 1. Minimal nonspecific white matter changes. 2. No definite metastatic disease. Milan Mccallum MD Abdomen/Pelvis CT 12/30/16 0000 Signed Impressions: Service Date/Time: Friday, December 30, 2016 19:08 - CONCLUSION: 1. Right lower lobe mass and numerous bilateral pulmonary nodules. 2. There are prominent lymph nodes in the region of the dacia hepatis presumed metastatic. 3. The remainder of the abdomen/pelvis is otherwise unremarkable. Milan Mccallum MD Procedures ORIF L4 fracture with L2/S1 posterolateral fixation with Pedicle screws and rods secondary to L4 Vertebral fracture with severe canal stenosis Other Results Laboratory Tests Test 01/02/17 01/04/17 01/05/17 08:34 11:11 08:24 Blood Type A NEGATIVE Antibody Screen NEGATIVE Crossmatch Leukocyte-Reduced Red Blood Cells Blood Bank Comment Neutrophils (%) (Auto) % Lymphocytes (%) (Auto) % Monocytes (%) (Auto) % Eosinophils (%) (Auto) % Basophils (%) (Auto) % Neutrophils # (Auto) TH/MM3 Lymphocytes # (Auto) TH/MM3 Monocytes # (Auto) TH/MM3 Eosinophils # (Auto) TH/MM3 Basophils # (Auto) TH/MM3 CBC Comment AUTO DIFF Differential Total Cells 100 Counted Neutrophils % (Manual) 38 % Band Neutrophils % 8 % Lymphocytes % 1 % Monocytes % 5 % Eosinophils % 47 % Neutrophils # (Manual) 18.3 TH/MM3 Myelocytes 1 % Differential Comment FINAL DIFF MANUAL Toxic Vacuolation PRESENT Platelet Estimate NORMAL Platelet Morphology Comment NORMAL White Blood Count 28.6 TH/MM3 Red Blood Count 3.27 MIL/MM3 Hemoglobin 9.0 GM/DL Hematocrit 28.0 % Mean Corpuscular Volume 85.6 FL Mean Corpuscular Hemoglobin 27.5 PG Mean Corpuscular Hemoglobin 32.2 % Concent Red Cell Distribution Width 14.3 % Platelet Count 384 TH/MM3 Mean Platelet Volume 7.4 FL Sodium Level 138 MEQ/L Potassium Level 4.3 MEQ/L Chloride Level 100 MEQ/L Carbon Dioxide Level 29.7 MEQ/L Anion Gap 8 MEQ/L Blood Urea Nitrogen 12 MG/DL Creatinine 0.74 MG/DL Estimat Glomerular Filtration 109 ML/MIN Rate Random Glucose 99 MG/DL Calcium Level 9.3 MG/DL Objective Remarks GENERAL: No acute distress. SKIN: Warm and dry. No rash HEAD: Atraumatic. Normocephalic. EYES: Pupils equal and round about 3 mm bilaterally and reactive. No scleral icterus. No injection or drainage. ENT: No nasal bleeding or discharge. Mucous membranes pink and moist. NECK: Trachea midline. No JVD. CARDIOVASCULAR: Regular rate and rhythm. S1, S2. No S4. RESPIRATORY: Clear to auscultation. Breath sounds equal bilaterally. The magical excursion GASTROINTESTINAL: Abdomen soft, non-tender, obese. Hypoactive bowel sounds MUSCULOSKELETAL: Extremities without significant peripheral edema. No obvious deformities. NEUROLOGICAL: Awake and oriented to person place time and year. Medications and IVs Current Medications Medications (Trade) Dose Ordered Sig/Nilo Route Start Time Stop Time Status Last Admin (Miralax) 17 gm DAILY PO 12/31/16 09:00 01/07/17 08:04 (Milk Of Magnesia Liq) 30 ml DAILY PRN PO 12/30/16 14:30 (Zofran Inj) 4 mg Q6HR PRN IV PUSH 01/01/17 11:30 01/03/17 09:49 (NS Flush) 2 ml UNSCH PRN IVF 01/02/17 14:15 (NS Flush) 2 ml BID IVF 01/02/17 21:00 01/07/17 08:07 (Protonix Inj) 40 mg DAILY IVP 01/03/17 09:00 01/07/17 08:06 (Morphine Inj) 2 mg Q2H PRN IV PUSH 01/02/17 14:15 (Tylenol) 650 mg Q4H PRN PO 01/02/17 14:15 (Ese-Colace) 1 tab BID PO 01/04/17 09:00 01/07/17 08:07 (Phazyme Chew) 125 mg Q8HR PRN PO 01/04/17 08:45 01/06/17 22:37 ([place] 10-325 Mg) 1 tab Q4H PRN PO 01/05/17 11:30 01/07/17 06:02 ([place] 10-325 Mg) 2 tab Q4H PRN PO 01/05/17 11:30 01/07/17 15:20 (Heparin Central Flush) 500 units UNSCH IV FLUSH 01/06/17 10:15 (NS Flush) 5 ml UNSCH PRN IVF 01/06/17 10:15 01/07/17 08:06 (Heparin Central Flush) 250 units UNSCH PRN IV FLUSH 01/06/17 10:15 A/P Assessment and Plan 1. Status post ORIF L4 fracture with L2/S1 posterolateral fixation with Pedicle screws and rods secondary to L4 Vertebral fracture with severe canal stenosis Neurosurgery following, to continue Pain management. ordered by Neurosurgery to remove HALEY drain and Dilaudid pump, okay to discharge to Rehab. as per Neurosurgery and Oncology okay to discharge to Rehab but as per the patient he refused going to Rehab but accepted going to Home with [facility] 2. Squamous Cell Lung cancer, CT chest revealed 9.9 x 6.7 cm right lower lobe mass with Lymphadenopathy encasing the right lower lobe, Continue Bronchodilator, asked for Port placement for Chemotherapy. to be started in one week. 3. Right Lower lobe liver metastases 2.5 x 1.6 cm, on PPIs. 4. 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 status post Lung Biopsy, will need Radiation therapy, followed by Oncology Doctor Ng Port placement prior to discharge. 5. Chronic Back pain Prophylaxis - GI -currently not indicated - DVT - SCD Discussed with Patient and Nurse and [employer]. Discharge Planning Discharge Home with [facility] Ezekiel Mercer MD Jan 07, 2017 15:37
--- NOTE | 2017-01-07 15:39 | HHI.DS ---
Discharge Summary Admission Date Dec 30, 2016 at 11:46 Discharge Date: Jan 07, 2017 Admitting Diagnosis (1) Lung mass ICD Code: R91.8 Diagnosis: Principal (2) Stage IV squamous cell carcinoma of lung ICD Code: C34.90 Diagnosis: Principal (3) Melanoma ICD Code: C43.9 Diagnosis: Principal Procedures ORIF L4 fracture with L2/S1 posterolateral fixation with Pedicle screws and rods secondary to L4 Vertebral fracture with severe canal stenosis Port placement Brief History - From Admission Pt evaluated at 1644 Patient is a 56-year-old male with past medical history of back pain and melanoma in situ is a direct admit to the hospital. He comes from Dr. Ng's office, his oncologist, because of severe back pain felt to be caused by metastatic lung cancer to his spine. Patient tells me that around the end of September, he was loading some aches and experienced excruciating pain. He states that he has been having back problems on and off for years however the past 10 weeks his back problems have been getting worse. He has been seeing a chiropractor on and off was diagnosed with back spasms was prescribed Flexeril. He went to see his primary care physician who ordered an MRI last Thursday. On Thursday she went to see his primary care doctor and he was told that they found metastatic disease which initially was thought to be from his prior history of melanoma. He was referred to an oncologist and saw Dr. Ng yesterday. Per , when they spoke about the history of melanoma, she was able to show Dr. Ng the pathology report which apparently showed clear margins and it was melanoma in situ. A chest x-ray was ordered, and showed a lung mass which is very concerning for lung cancer. Patient tells me that he takes hydrocodone 1 tablet when necessary every 6 hours and 2 tablets when the pain is worse. He also takes ibuprofen 800 mg 3 times a day which seems to help a lot. She denies any urinary incontinence or stool incontinence. Does have weakness on the right lower extremity due to his sciatica. He feels some numbness on the lower extremity as well. His is a walker to ambulate at times. CBC/BMP: 01/05/17 0824 01/05/17 0824 Significant Findings Laboratory Tests Test 01/05/17 08:24 White Blood Count 28.6 TH/MM3 (4.0-11.0) Red Blood Count 3.27 MIL/MM3 (4.50-5.90) Hemoglobin 9.0 GM/DL (13.0-17.0) Hematocrit 28.0 % (39.0-51.0) Imaging Last Impressions Port Line Insertion 01/06/17 0000 Signed Impressions: Service Date/Time: Friday, January 06, 2017 10:17 - CONCLUSION: Uncomplicated ultrasound and fluoroscopic guided implanted central venous port catheter placement as described in detail above. An 8 [place] Power port was placed. Ezequiel Larson MD Lumbar Spine MRI 01/01/17 0000 Signed Impressions: Service Date/Time: December 16:32 - CONCLUSION: Presumed metastatic disease with pathologic fracture at L4. Moderate associated canal stenosis. Konstantin Bingham MD Lung Biopsy CT 12/31/16 0716 Signed Impressions: Service Date/Time: Saturday, December 31, 2016 08:29 - CONCLUSION: Uncomplicated CT guided biopsy of the right lung mass. Preliminary pathology interpretation is a cellular specimen.. John Bravo MD FACR Chest X-Ray 12/31/16 0000 Signed Impressions: Service Date/Time: Saturday, December 31, 2016 10:55 - CONCLUSION: There is no pneumothorax. John Bravo MD FACR Chest CT 12/30/16 0000 Signed Impressions: Service Date/Time: Friday, December 30, 2016 19:08 - CONCLUSION: 1. Large right lower lobe mass extending into the hilum. 2. Numerous bilateral metastatic pulmonary nodules. 3. Metastatic adenopathy in the right peritracheal and subcarinal regions. There is also superior mediastinal adenopathy and left axillary adenopathy. Milan Mccallum MD Brain MRI 12/30/16 0000 Signed Impressions: Service Date/Time: Friday, December 30, 2016 19:22 - CONCLUSION: 1. Minimal nonspecific white matter changes. 2. No definite metastatic disease. Milan Mccallum MD Abdomen/Pelvis CT 12/30/16 0000 Signed Impressions: Service Date/Time: Friday, December 30, 2016 19:08 - CONCLUSION: 1. Right lower lobe mass and numerous bilateral pulmonary nodules. 2. There are prominent lymph nodes in the region of the dacia hepatis presumed metastatic. 3. The remainder of the abdomen/pelvis is otherwise unremarkable. Milan Mccallum MD PE at Discharge GENERAL: No acute distress. SKIN: Warm and dry. No rash HEAD: Atraumatic. Normocephalic. EYES: Pupils equal and round about 3 mm bilaterally and reactive. No scleral icterus. No injection or drainage. ENT: No nasal bleeding or discharge. Mucous membranes pink and moist. NECK: Trachea midline. No JVD. CARDIOVASCULAR: Regular rate and rhythm. S1, S2. No S4. RESPIRATORY: Clear to auscultation. Breath sounds equal bilaterally. The magical excursion GASTROINTESTINAL: Abdomen soft, non-tender, obese. Hypoactive bowel sounds MUSCULOSKELETAL: Extremities without significant peripheral edema. No obvious deformities. NEUROLOGICAL: Awake and oriented to person place time and year. Hospital Course Nurse Ldr Notes: 56-year-old male. Date of admission 12/30/2016. Date of consult 2016. Asked medical history includes chronic low back pain requiring TATO 1 and melanoma in situ status post excision 2012. Patient was in normal state of health until 10/10 when he developed acute low back pain. He proceeded to a care facility was treated with Advil without success. He is also seen a chiropractor for relief. He used Advil 200 milligrams four pills 3x a day for the past 4-5 weeks in order to control the pain. He recently saw his primary care physician, Dr. Sherin Vizcaino. Dr. Vizcaino ordered an MRI of the lumbar spine on 2016without contrast. He was found to have a focal bone lesion at L3, S1 and possibly T12. There was edema and around 50% collapse of the central aspect of the L4 vertebral which appeared pathologic. There was extension beyond the vertebral body margin at the posterior right lateral aspect of the L4 vertebral body. The bulging of the L4 vertebral body caused a moderate impression on the thecal sac. A Chest x-ray which showed an abnormal density, measuring 7.8 cm in the posterior and medial right mid lung field. Patient was a direct admit on 12/30/16 underlying pain speed workup. He is also noted to be taken to the creatinine of 3. This is thought to be secondary to NSAID usage. Seen by mend worker hospitalization and receiving IV fluids. Creatinine currently 1.2. At this facility, patient received the following imaging MRI L-spine - L4 marrow replacing process with pathologic collapse 50% loss of vertebral height. Bony retropulsion of the anterior epidural space. Severe canal stenosis7 to [address] chest - right lower lobe 9.9 x 6.7 cm mass encasing the right lower lobe with significant bilateral nodules large in size 2.1 mm left lower lobe. Patient also with significant subcarinal,'s sperm mediastinal and left axillary lymphadenopathy. 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 Today, patient after creatinine is stabilized underwent ORIF of his L4 fracture with L2 through S1 posterior lateral fixation with pedicle screws and rods by Dr. Combs 2900 crystalloid in OR. 350 EBL. 600 cc urine output. Patient currently has 1 HALEY with bloody drainage. Currently seen in PACU nasal cannula. 01/03: Afebrile. Feels much better as pain low back/right lower extremity much improved. On Dilaudid GAUGE CONTROLLER. Afebrile. Hemoglobin remained stable. Adequate urine output 01/04: Afebrile. Able to use barely stand yesterday that happy with the. Pain controlled with Dilaudid GAUGE CONTROLLER. Laboratories pending. Kidd still in place. A line discontinued. Hospitalist Notes: 01/05: Seen in his bedroom in the presence of his , HALEY drain in place, as per Neurosurgery for Rehab facility, placed an order for C asked by [employer], NO nausea, vomit or diarrhea. ehs specialist following , consulted Invasive Radiology for Port Placement, to continue PT and Neurosurgery, once healed from surgery to start chemotherapy. TLSO when out of bed, discontinued Dilaudid Pump and HALEY drain, clear for rehab as per Neurosurgery. 01/06: Seen in his bedroom, stable okay for discharge from Neurosurgery, No nausea, vomit or diarrhea, discussed with nurse Miss Page 01/07: Stable in his bedroom, okay to discharge as per traffic control specialist recommended to discharge to Rehab and follow up in his Clinic and start Chemotherapy in one week, also discharged as per Neurosurgery. no nausea, vomit or diarrhea, he refused with his going to Rehab. will go home with [facility] for PT and USP. Assessment and Plan 1. Status post ORIF L4 fracture with L2/S1 posterolateral fixation with Pedicle screws and rods secondary to L4 Vertebral fracture with severe canal stenosis Neurosurgery following, to continue Pain management. ordered by Neurosurgery to remove HALEY drain and Dilaudid pump, okay to discharge to Rehab. as per Neurosurgery and Oncology okay to discharge to Rehab but as per the patient he refused going to Rehab but accepted going to Home with [facility]. 2. Squamous Cell Lung cancer, CT chest revealed 9.9 x 6.7 cm right lower lobe mass with Lymphadenopathy encasing the right lower lobe, Continue Bronchodilator, asked for Port placement for Chemotherapy. to be started in one week. 3. Right Lower lobe liver metastases 2.5 x 1.6 cm, on PPIs. 4. 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 status post Lung Biopsy, will need Radiation therapy, followed by Oncology Doctor Ng Port placement prior to discharge. 5. Chronic Back pain Prophylaxis - GI -currently not indicated - DVT - SCD Discussed with Patient and Nurse and [employer]. Discharge Planning Discharge Home with [facility]. Pt Condition on Discharge: Good Discharge Disposition: Disch w/ Home Health Serv Discharge Time: > 30 minutes Discharge Instructions DIET: Follow Instructions for: As Tolerated, No Restrictions Activities you can perform: Regular-No Restrictions Other Activity Instructions: Follow Physical Therapy recommendations in Rehab. Ezekiel Mercer MD Jan 07, 2017 15:39
[2017-01-07 16:30] VITALS: RESP 16
[2017-01-21] MEDS ORDERED: CYCL7.5T33 PO (12:16)
[2017-01-21] MEDS ORDERED: GABA300C5 PO (12:16)
[2017-01-21] MEDS ORDERED: HYDR-3583 PO (15:30)
[2017-01-28] MEDS ORDERED: DULO1CAP2 PO (11:01)
== END 2017-01-07 17:35 | disposition home health service (06) | DRG 460 ==
LOC: HOCB 11:46 → N03B 01-02 14:21 → N05A 01-04 12:48
PROVIDERS: ADMIT Internal Medicine; ATTEND Internal Medicine
PROC: 0BBK3ZX Excision of Right Lung, Percutaneous Approach, Diagnostic (ICD-10-PCS; 2016-12-31)
PROC: 0QB00ZX Excision of Lumbar Vertebra, Open Approach, Diagnostic (ICD-10-PCS; 2017-01-02)
PROC: 4A11X4G Monitoring of Peripheral Nervous Electrical Activity, Intraoperative, External Approach (ICD-10-PCS; 2017-01-02)
PROC: 0SG10K1 Fusion of 2 or more Lumbar Vertebral Joints with Nonautologous Tissue Substitute, Posterior Approach, Posterior Column, Open Approach (ICD-10-PCS; principal; 2017-01-02 08:09)
PROC: 05HM33Z Insertion of Infusion Device into Right Internal Jugular Vein, Percutaneous Approach (ICD-10-PCS; 2017-01-06)
PROC: B543ZZA Ultrasonography of Right Jugular Veins, Guidance (ICD-10-PCS; 2017-01-06)
PROC: 0JH60XZ Insertion of Tunneled Vascular Access Device into Chest Subcutaneous Tissue and Fascia, Open Approach (ICD-10-PCS; 2017-01-06)
DX: M84.48XA Pathological fracture, other site, initial encounter for fracture (principal); N17.9 Acute kidney failure, unspecified; T39.395A Adverse effect of other nonsteroidal anti-inflammatory drugs [NSAID], initial encounter; C78.7 Secondary malignant neoplasm of liver and intrahepatic bile duct; C79.51 Secondary malignant neoplasm of bone; C34.31 Malignant neoplasm of lower lobe, right bronchus or lung; E87.1 Hypo-osmolality and hyponatremia; E83.52 Hypercalcemia; D64.9 Anemia, unspecified; M54.16 Radiculopathy, lumbar region; K21.9 Gastro-esophageal reflux disease without esophagitis; Z85.820 Personal history of malignant melanoma of skin; Z87.891 Personal history of nicotine dependence
CPT/HCPCS: 32405; 36561; 70551; 71010; 71250; 72100; 72158; 74176; 76000; 76937; 77001; 77012; 80048; 80053; 81001; 81235; 82378; 82805; 84484; 85007; 85014; 85018; 85025; 85027; 85610; 85730; 86850; 86900; 86901; 86920; 87015; 87086; 87102; 87116; 87206; 87641; 88305; 88307; 88311; 88331; 88333; 88341; 88342; 88360; 88377; 88381; 93005; 94150; 99152; 99153; 99205; 99213; 99223; A9579; C1713; C1788; C9113; C9290; G0463; J0131; J1170; J1580; J1642; J2250; J2270; J2405; J3010; J3370; J3480; J7030; J7040; J7050; J7120; L0200; L0484; Q9963

== ENCOUNTER 2017-01-22 15:29 | Observation (INO) | payer BC ==
[~2017-01-22] VITALS: Ht 193 cm; Wt 105.0 kg
[~2017-01-22 15:29] MED LIST changes: +COLA100C3 PO; +CYCL7.5T33 PO; +GABA300C5 PO; +HYDR-3583 PO; +IBUP800T23 PO; -LORT5TAB PO; +PROT40TA PO; +ZANT150T2 PO
[2017-01-22 15:32] VITALS: BP 116/67; PULSE 112; RESP 20; TEMP 98.5; O2SAT 96
[2017-01-22] MEDS ORDERED: ONDANSETRON HCL 4 MG/2 ML VIAL IV PUSH ONE (15:45)
[2017-01-22] MEDS ORDERED: SODIUM CHLORID 0.9% 500 ML INJ 500 ML IV ONE (15:45)
[2017-01-22] MEDS ORDERED: MORPHINE SULFATE 4 MG/ML INJ IV PUSH ONE (15:45)
--- NOTE | 2017-01-22 15:55 | PD ---
HPI Chief Complaint: Back/ Neck Pain or Injury Time Seen by Provider: 15:31 Travel History International Travel<30 days: No Contact w/Intl Traveler<30days: No Traveled to known affect area: No History of Present Illness HPI The patient is a 56-year-old male who presents emergency department for back pain. 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 The patient underwent a biopsy was seen by his new oncologist, Dr. Ng. 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 Combs, 3 weeks ago. The patient was up, walking with a walker, however, the last several days has had increasing low back pain and left hip pain that radiates to the anterior left thigh. The pain is worse with movement, slightly alleviated at rest, but progressing over the last several days. The patient did see the mid-level provider, Jeferson Avila PA-C , in the office yesterday where he had an outpatient CT of the lumbar spine ordered and was prescribed Flexeril and Lortab. However, patient was unable to have a CT performed and has had increasing pain, therefore, was referred to the emergency department for further evaluation. He does complain of mild right ear pain and right lower jaw pain, nonproductive cough that is been present for the last several weeks since the biopsy. He denies any urinary or fecal incontinence. He denies any current fever, chills, or sweats. PFSH Past Medical History Cancer: Yes (MELANOMA, LUNG CANCER WITH BONE METS) Cardiovascular Problems: Yes High Cholesterol: Yes Chemotherapy: No Endocrine: No GERD: No Genitourinary: No Hiatal Hernia: No Immune Disorder: No Musculoskeletal: No Neurologic: Yes Psychiatric: No Reproductive: No Respiratory: Yes Radiation Therapy: No Sleep Apnea: Yes (HASN'T BEEN USING CPAP) Ulcer: No Past Surgical History Abdominal Surgery: No Cardiac Surgery: No Ear Surgery: No Endocrine Surgery: No Eye Surgery: No Genitourinary Surgery: No Gynecologic Surgery: No Oral Surgery: No Thoracic Surgery: No Social History Alcohol Use: Yes (WEEKLY) Tobacco Use: Yes (WEEKLY) Substance Use: Yes Allergies-Medications (Allergen,Severity, Reaction): Coded Allergies: Penicillin (Verified Allergy, Severe, HIVES IN THROAT, CAN'T BREATHE, 12/11) Reported Meds & Prescriptions Reported Meds & Active Scripts Active Hydrocodone-Acetaminophen 10-325 mg Tab 1 Tab PO Q6H PRN Gabapentin 300 Mg Cap 300 Mg PO TID START 1 TAB DAILY X 3 DAYS, THEN 1 TAB BID X 3 DAYS, THEN 1 TAB TID X 3 DAYS Flexeril (Cyclobenzaprine HCl) 7.5 Mg Tab 7.5 Mg PO TID Protonix (Pantoprazole Sodium) 40 Mg Tab 40 Mg PO DAILY Reported Zantac (Ranitidine HCl) 150 Mg Tab 150 Mg PO BID Review of Systems Except as stated in HPI: all other systems reviewed are Neg General / Constitutional: No: Fever Cardiovascular: No: Chest Pain or Discomfort Respiratory: Positive: Cough, No: Shortness of Breath Gastrointestinal: No: Nausea, Vomiting, Abdominal Pain Genitourinary: No: Dysuria, Decreased Urinary Output, Hesitancy, Incontinence Musculoskeletal: Positive: Pain Neurologic: Positive: Paresthesia (decreased sensation inferior to the right knee for the last 2 years), No: Change in Mentation Physical Exam Narrative GENERAL: Awake, alert, pleasant 56-year-old male who appears his stated age and is in no acute respiratory distress. SKIN: Focused skin assessment warm/dry. HEAD: Atraumatic. Normocephalic. EYES: Pupils equal and round. No scleral icterus. No injection or drainage. ENT: No nasal bleeding or discharge. Mucous membranes pink and moist. NECK: Trachea midline. No JVD. CARDIOVASCULAR: Regular rate and rhythm. No murmur appreciated. RESPIRATORY: No accessory muscle use. Clear to auscultation. Breath sounds equal bilaterally. GASTROINTESTINAL: Abdomen soft, non-tender, nondistended. No rebound tenderness. Back: Patient has 2 well-healed vertical scars just lateral to the midline but no obvious erythema or underlying fluctuance. MUSCULOSKELETAL: No obvious deformities. No clubbing. No cyanosis. No edema. Strength with flexion of the toes bilaterals 5 out of 5. Plantar flexion is 5 out of 5. Dorsi flexion is 5 out of 5. Extension and flexion of the hips is 4+ /5 bilateral. Positive dorsalis pedal pulses bilateral. NEUROLOGICAL: Awake and alert. No obvious cranial nerve deficits. Motor grossly within normal limits. Normal speech. Sensation is intact of the lateral , medial, dorsal aspect left foot, diminished over the right foot when compared to the left. Ankle DTRs are 2+ and symmetric. Knee DTRs are 1+ and symmetric. PSYCHIATRIC: Appropriate mood and affect; insight and judgment normal. Data Data Last Documented VS Vital Signs Date Time Temp Pulse Resp B/P Pulse Ox O2 Delivery O2 Flow Rate FiO2 01/22/17 15:32 98.5 112 20 116/67 96 Orders Complete Blood Count With Diff (01/22/17 15:42) Comprehensive Metabolic Panel (01/22/17 15:42) Act Partial Throm Time (Ptt) (01/22/17 15:42) Prothrombin Time / Inr (Pt) (01/22/17 15:42) Urinalysis - C+S If Indicated (01/22/17 15:42) Morphine Inj (Morphine Inj) (01/22/17 15:45) Ondansetron Inj (Zofran Inj) (01/22/17 15:45) Sodium Chlorid 0.9% 500 Ml Inj (Ns 500 M (01/22/17 15:45) Ct Lumb Spine W/O Contrast (01/22/17 ) Lactic Acid (01/22/17 16:53) Blood Culture (01/22/17 16:53) Chest, Single Ap (01/22/17 ) Mri L Spine W&W/O Contrast (01/22/17 ) Admit Order (Ed Use Only) (01/22/17 17:52) Labs Laboratory Tests Test 01/22/17 01/22/17 15:45 17:05 White Blood Count 27.4 TH/MM3 Red Blood Count 4.08 MIL/MM3 Hemoglobin 10.9 GM/DL Hematocrit 33.7 % Mean Corpuscular Volume 82.8 FL Mean Corpuscular Hemoglobin 26.7 PG Mean Corpuscular Hemoglobin 32.3 % Concent Red Cell Distribution Width 15.0 % Platelet Count 491 TH/MM3 Mean Platelet Volume 7.5 FL Neutrophils (%) (Auto) % Lymphocytes (%) (Auto) % Monocytes (%) (Auto) % Eosinophils (%) (Auto) % Basophils (%) (Auto) % Neutrophils # (Auto) TH/MM3 Lymphocytes # (Auto) TH/MM3 Monocytes # (Auto) TH/MM3 Eosinophils # (Auto) TH/MM3 Basophils # (Auto) TH/MM3 CBC Comment AUTO DIFF Differential Total Cells 100 Counted Neutrophils % (Manual) 58 % Band Neutrophils % 7 % Lymphocytes % 5 % Monocytes % 4 % Eosinophils % 26 % Neutrophils # (Manual) 17.8 TH/MM3 Differential Comment FINAL DIFF MANUAL Platelet Estimate HIGH Platelet Morphology Comment NORMAL Prothrombin Time 11.6 SEC Prothromb Time International 1.0 RATIO Ratio Activated Partial 28.9 SEC Thromboplast Time Sodium Level 137 MEQ/L Potassium Level 4.3 MEQ/L Chloride Level 99 MEQ/L Carbon Dioxide Level 29.7 MEQ/L Anion Gap 8 MEQ/L Blood Urea Nitrogen 14 MG/DL Creatinine 0.89 MG/DL Estimat Glomerular Filtration 88 ML/MIN Rate Random Glucose 101 MG/DL Calcium Level 9.9 MG/DL Total Bilirubin 0.4 MG/DL Aspartate Amino Transf 18 U/L (AST/SGOT) Alanine Aminotransferase 31 U/L (ALT/SGPT) Alkaline Phosphatase 194 U/L Total Protein 7.7 GM/DL Albumin 2.7 GM/DL Lactic Acid Level 1.5 mmol/L [facility] Medical Decision Making Medical Screen Exam Complete: Yes Emergency Medical Condition: Yes Medical Record Reviewed: Yes Interpretation(s) Laboratory Tests Test 01/22/17 01/22/17 15:45 17:05 White Blood Count 27.4 TH/MM3 Red Blood Count 4.08 MIL/MM3 Hemoglobin 10.9 GM/DL Hematocrit 33.7 % Mean Corpuscular Volume 82.8 FL Mean Corpuscular Hemoglobin 26.7 PG Mean Corpuscular Hemoglobin 32.3 % Concent Red Cell Distribution Width 15.0 % Platelet Count 491 TH/MM3 Mean Platelet Volume 7.5 FL Neutrophils (%) (Auto) % Lymphocytes (%) (Auto) % Monocytes (%) (Auto) % Eosinophils (%) (Auto) % Basophils (%) (Auto) % Neutrophils # (Auto) TH/MM3 Lymphocytes # (Auto) TH/MM3 Monocytes # (Auto) TH/MM3 Eosinophils # (Auto) TH/MM3 Basophils # (Auto) TH/MM3 CBC Comment AUTO DIFF Differential Total Cells 100 Counted Neutrophils % (Manual) 58 % Band Neutrophils % 7 % Lymphocytes % 5 % Monocytes % 4 % Eosinophils % 26 % Neutrophils # (Manual) 17.8 TH/MM3 Differential Comment FINAL DIFF MANUAL Platelet Estimate HIGH Platelet Morphology Comment NORMAL Prothrombin Time 11.6 SEC Prothromb Time International 1.0 RATIO Ratio Activated Partial 28.9 SEC Thromboplast Time Sodium Level 137 MEQ/L Potassium Level 4.3 MEQ/L Chloride Level 99 MEQ/L Carbon Dioxide Level 29.7 MEQ/L Anion Gap 8 MEQ/L Blood Urea Nitrogen 14 MG/DL Creatinine 0.89 MG/DL Estimat Glomerular Filtration 88 ML/MIN Rate Random Glucose 101 MG/DL Calcium Level 9.9 MG/DL Total Bilirubin 0.4 MG/DL Aspartate Amino Transf 18 U/L (AST/SGOT) Alanine Aminotransferase 31 U/L (ALT/SGPT) Alkaline Phosphatase 194 U/L Total Protein 7.7 GM/DL Albumin 2.7 GM/DL Lactic Acid Level 1.5 mmol/L Last Impressions Lumbar Spine CT 01/22/17 0000 Signed Impressions: Service Date/Time: December 16:23 - CONCLUSION: Stable lumbar alignment status post posterior fusion from L3-L5 Partial resection of the posterior aspect of L4 for spinal canal decompression. Post surgical changes within the spinal canal cannot be clearly distinguished from the thecal sac through the surgical site. Seroma versus pseudomeningocele cannot be excluded. No other significant change compared to the preoperative exam Ernie Guajardo MD Differential Diagnosis Differential diagnoses includes postoperative pain, epidural abscess, metastatic disease, hardware failure, radiculopathy. Narrative Course IV was established, labs are drawn and sent, and the patient was placed on cardiac telemetry monitoring and continuous pulse oximetry monitoring. The patient was administered morphine, Zofran, and IV fluids. I discussed the patient with Dr. Combs's mid-level provider who recommended CT noncontrast of the lumbar spine. Therefore, CT was ordered. The patient's white count was elevated at 27.4, he denies corticosteroid use after the surgery, I am unsure if this elevated white count is secondary to infection or possible side effects from Keytruda administration. The patient is afebrile. Therefore, blood culture and lactic acid were ordered. The patient was reassessed at 5 PM, his pain had improved after the administration of morphine and Zofran. Dr. Combs evaluated the patient in the emergency department at 5:20 PM, he requests 23 hour observation to [facility], the patient's primary physician is Dr. Sherin Ruano. Therefore, [facility] were paged for 23 hour observation. Neurosurgery also requests MRI with and without of the lumbar spine, therefore, MRI was ordered. I reviewed the EMR, the patient's white count has been elevated in the past, does not appear to be acute finding. Physician Communication Physician Communication I discussed the patient with Dr. Combs who request 23 hour observation to [facility]. I discussed the patient with Dr. Miguel who agrees with 23 hour observation. Diagnosis Primary Impression: Postoperative pain Admitting Information Admitting Physician Requests: Observation Condition: Stable Markus Elaine MD Jan 22, 2017 15:55
[2017-01-22 16:25] LABS: HEMATOCRIT 33.7 % (39.0-51.0); MEAN CELL VOLUME 82.8 FL (80.0-100.0); MEAN CORPUSCULAR HEMOGLOBIN 26.7 PG (27.0-34.0); MEAN CORPUSCULAR HGB CONC 32.3 % (32.0-36.0); PLATELET COUNT 491 TH/MM3 (150-450); RED BLOOD COUNT 4.08 MIL/MM3 (4.50-5.90); WHITE BLOOD COUNT 27.4 TH/MM3 (4.0-11.0)
[2017-01-22 16:32] LABS: APTT (PATIENT) 28.9 SEC (24.3-30.1); PROTHROMBIN TIME - PATIENT 11.6 SEC (9.8-11.6)
[2017-01-22 16:37] LABS: HEMO FLAGS AUTO DIFF
[2017-01-22 16:53] LABS: ALT (GPT) 31 U/L (12-78); ANION GAP 8 MEQ/L (5-15); AST (GOT) 18 U/L (15-37); BICARBONATE 29.7 MEQ/L (21.0-32.0); BLOOD UREA NITROGEN 14 MG/DL (7-18); CHLORIDE 99 MEQ/L (98-107); GLOMERULAR FILTRATION RATE 88 ML/MIN (>89); POTASSIUM 4.3 MEQ/L (3.5-5.1); SODIUM (NA) 137 MEQ/L (136-145)
[2017-01-22 16:56] LABS: ALKALINE PHOSPHATASE 194 U/L (45-117); TOTAL BILIRUBIN ADULT 0.4 MG/DL (0.2-1.0)
--- NOTE | 2017-01-22 17:22 | HHI.NSPN ---
(Ricki Combs MD) Note Status Status: Progress Note (Kanika Avila) Interval History Interval History Mr. Mae is a 56 year old male with bony metastatic spine disease. His previous MRI showed bony spinal lesions, and pathological fracture of L4 causing severe canal stenosis at L4-5. He underwent He underwent L4 corpectomy , open reduction of pathological fracture with resection of metastatic carcinoma , L2 to L4 posterolateral fusion and autologous bone graft, L2 to L4 segmental instrumental fixation using transpedicular screws and rods, microsurgical dissection. Following his surgery he reported of resolution of his previous severe right L5 radiculopathy. He was doing well until recently developed recurrent lumbar pain and pain radiating his left leg posterolaterally. He denies bowel or bladder incontinence, fevers or chills. He reports his pain is worsened when he sits or stands. His pain is alleviated when laying flat or reclining. He denies any recent falls or trauma. He has followed up with his Oncologist and radiation oncologist and will be undergoing radiation treatment soon. He was seen two days ago in the office and a stat CT L spine was ordered. He was unable to obtain the studies and his pain became much worse and came in to the ED for further evaluation. A CT L spine has been obtained. (Kanika Avila) Labs, Micro, & Vital Signs Results Date Time Temp Pulse Resp B/P Pulse Ox O2 Delivery O2 Flow Rate FiO2 01/22/17 15:32 98.5 112 20 116/67 96 Constitutional Vital Signs Date Time Temp Pulse Resp B/P Pulse Ox O2 Delivery O2 Flow Rate FiO2 01/22/17 15:32 98.5 112 20 116/67 96 (Ricki Combs MD) Review of Systems/Exam Exam Mr. Mae is alert, in no apparent distress. Speech is fluent. Mentation intact. His incision is healing well, no redness, tenderness, discharge, or other evidence of infection. Cranial nerve: pupils equal, round and reactive to light. Extra-ocular movements are intact. Facial motor are normal and symmetrical. Gross hearing appears intact. Muscle strength: limited due to back pain but moved both iliopsoas, quadriceps, hamstrings, plantarflexion, dorsiflexion in the lower extremities grossly 5/5 Sensory examination is intact to light touch in both the upper and lower extremities. No ankle clonus. Gait: ambulated with rolling walker, no ataxia seen (Kanika Avila) Medical Decision Making MDM Remarks 56 y/o male with spine metastases, pathological L4 fracture causing severe stenosis, he underwent L4 corpectomy, L3 to L5 posterolateral fusion using transpedicular screws and rods. He was doing well following surgery then developed recurrent severe lumbar and L4 radiculopathy f/u CT L spine today reviewed, stable findings (Kanika Avila) Plan Plan Remarks f/u CT L spine reviewed, stable, recommend MRI L spine to assess for neural compression, cont supportive care, TLSO when out of bed dw patient and in room (Kanika Avila) Attending Statement Neuro. Neuro checks in a serial fashion. MRI was stable Respiratory. pulmonary toilette, nasotracheal suction, and breathing treatments with nebulizers. PT and OT eval Nutrition. NPO Renal. monitor closely urine output, BUN and creatinine Endocrine. Monitor serial Acu checks and SSI for tight control ID monitor for signs of infection Protonix for stress ulcer prophylaxis Leo hose and SCD's for DVT prophylaxis The exam, history, and the medical decision-making described in the above note were completed with the assistance of the mid-level provider. I reviewed and agree with the findings presented. I attest that I had a [id number] encounter with the patient on the same day, and personally performed and documented my assessment and findings in the medical record. (Ricki Combs MD) Ricki Combs MD Jan 22, 2017 17:22 Kanika Avila Jan 23, 2017 11:16
[2017-01-22 17:24] LABS: BANDS 7 % (0-6); EOSINOPHILS 26 % (0-4); NEUTROPHIL # MANUAL DIFF 17.8 TH/MM3 (1.8-7.7); POLYS (SEG NEUTROPHILS) 58 % (16-70); WBC DIFF SAMPLE 100
[2017-01-22 17:26] LABS: PLATELET ESTIMATE SMEAR HIGH (NORMAL); PLATELET MORPHOLOGY NORMAL (NORMAL); SCAN/DIFF FINAL DIFF MANUAL
--- NOTE | 2017-01-22 17:28 | RADRPT ---
EXAM DATE/TIME: 01/22/2017 16:23 [facility] COMPARISON: MRI LUMBAR SPINE W & W/O CONTRAST, January 01, 2017, 16:32. INDICATIONS : Pain in left hip, radiates down leg. Tumor resection, L4-5 fusion 3-4 weeks ago. RADIATION DOSE: 42.05 CTDIvol (mGy) MEDICAL HISTORY : Cardiovascular disease. Metastatic, bone. Carcinoma, lung. SURGICAL HISTORY : Fusion, lumbar. ENCOUNTER: Initial ACUITY: 1 day PAIN SCALE: 8/10 LOCATION: Left back pain into left leg TECHNIQUE: Volumetric scanning of the lumbar spine was performed. Multiplanar reconstructions in the sagittal, coronal and oblique axial planes were performed. Using automated exposure control and adjustment of the mA and/or kV according to patient size, radiation dose was kept as low as reasonably achievable t o obtain optimal diagnostic quality images. DICOM format image data is available electronically for review and comparison. FINDINGS: Post surgical changes are identified in the following right-sided laminectomy and posterior fusion fr om L3-L5. There posterior rods with transpedicular screws. Fixation screws are identified bilaterally at L3, on the left at L4 and bilaterally at L5. Resection of the posterior L4 vertebral body to decompress the spinal canal is noted. It is difficult to distinguish the thecal sac from the postsurgical changes. Vertebral bodies are stable in alignment without significant listhesis. Bone graft has been placed along the posterior elements. Destructive metastatic disease remains evident involving the right pedicle of L4 and the right side o f S1. CONCLUSION: Stable lumbar alignment status post posterior fusion from L3-L5 Partial resection of the posterior aspect of L4 for spinal canal decompression. Post surgical changes within the spinal canal cannot be clearly distinguished from the thecal sac thr ough the surgical site. Seroma versus pseudomeningocele cannot be excluded. No other significant change compared to the preoperative exam Ernie Guajardo MD on January 22, 2017 at 17:13 Board Certified Radiologist. This report was verified electronically.
[2017-01-22] MEDS ORDERED: MAGNESIUM HYDROXIDE SUSP 30 ML CUP PO PRN (18:00)
[2017-01-22] MEDS ORDERED: ACETAMINOPHEN 325 MG TAB PO PRN ×2 (18:00)
[2017-01-22] MEDS ORDERED: LACTULOSE SYRUP 20 GM/30 ML CUP PO PRN (18:00)
[2017-01-22] MEDS ORDERED: SODIUM CHLORIDE 0.9% FLUSH 10 ML FLUSH IV FLUSH PRN (18:00)
[2017-01-22] MEDS ORDERED: SENNOSIDES 8.6 MG TAB PO PRN (18:00)
[2017-01-22] MEDS ORDERED: ONDANSETRON HCL 4 MG/2 ML VIAL IVP PRN (18:00)
[2017-01-22] MEDS ORDERED: MORPHINE SULFATE 4 MG/ML INJ IV PRN (18:00)
[2017-01-22] MEDS ORDERED: ACETAMINOPHEN/HYDROcodone 325 MG/5 MG TAB PO PRN (18:00)
[2017-01-22] MEDS ORDERED: NALOXONE HCL 0.4 MG/ML AMP IV PRN (18:00)
[2017-01-22] MEDS ORDERED: BISACODYL 10 MG SUPP RECTAL PRN (18:00)
--- NOTE | 2017-01-22 18:10 | RADRPT ---
EXAM DATE/TIME: 01/22/2017 17:43 [facility] COMPARISON: CT THORAX W/O CONTRAST, December 30, 2016, 19:08. [id number] PLCMT, POWERPORT, W US, RIGHT, January 06 017, 10:17. INDICATIONS : Cough. MEDICAL HISTORY : Carcinoma, lung. SURGICAL HISTORY : Port placement. ENCOUNTER: Initial ACUITY: 1 month PAIN SCORE: 0/10 LOCATION: Right lung. FINDINGS: Increasing opacity is seen throughout the right mid and lower lung field. Small nodular densities rem ain evidence of a left lung. There is [id number]-[id number] catheter is noted in place. CONCLUSION: Increasing right lung opacity likely representing a combination of mass, airspace disease and pleural effusion. Multiple left lung nodules consistent with metastatic disease. Stable [id number]. Ernie Guajardo MD on January 22, 2017 at 18:06 Board Certified Radiologist. This report was verified electronically.
[2017-01-22 18:16] VITALS: BP 134/62; PULSE 100; RESP 20
--- NOTE | 2017-01-22 18:29 | HHI.HP ---
[facility] Sherin Vizcaino MD Admission Diagnosis postoperative back pain, leukocytosis Diagnoses: Chief Complaint: Increased back pain and difficulty ambulating. 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 He states her only relief is when he lay still reports he has even difficulty sitting up straight. He denies any increase radiation of pain towards the lower extremities. He denies any weakness or numbness of the lower legs. His baseline is ambulating with assistance of a rolling walker since the surgery on January 02. He states no recent falls post surgery. He has been seen Dr. Ng, oncologist and started immunotherapy. He was seen by Dr. Orozco's physician assistant professor of biochemistry yesterday and in the office and came into the ED due to continue progressive worsening of the pain. He denies any underlying chills or fever. Patient denies any bowel or urinary dysfunction or incontinence. Review of Systems Constitutional: DENIES: Fatigue, Fever, Chills, Change in appetite Endocrine: DENIES: Heat/cold intolerance Eyes: DENIES: Blurred vision, Eye pain, Vision loss Ears, nose, mouth, throat: DENIES: Hearing loss, Nasal discharge, Throat pain, Ear Pain, Sinus Pain Respiratory: DENIES: Cough, Shortness of breath Cardiovascular: DENIES: Chest pain, Palpitations, Dyspnea on Exertion, Lower Extremity Edema Gastrointestinal: DENIES: Abdominal pain, Black stools, Bloody stools, Constipation, Diarrhea, Nausea, Vomiting Musculoskeletal: COMPLAINS OF: Back pain, DENIES: Joint pain, Muscle aches, Stiffness Integumentary: DENIES: Rash Hematologic/lymphatic: DENIES: Bruising, Lymphadenopathy Immunologic/allergic: DENIES: Eczema Neurologic: COMPLAINS OF: Abnormal gait, Poor Balance, DENIES: Headache, Localized weakness, Paresthesias Psychiatric: DENIES: Anxiety, Depression, Suicidal Ideation Past Family Social History Past Medical History Melanoma in situ Non-small cell carcinoma of the lung with metastasis Past Surgical History January 02, status post L4 corpectomy with open reduction a pathological fracture with resection. Reported Medications Hydrocodone-Acetaminophen 10-325 mg Tab 1 Tab PO Q6H PRN Gabapentin 300 Mg Cap 300 Mg PO TID Flexeril (Cyclobenzaprine HCl) 7.5 Mg Tab 7.5 Mg PO TID Protonix (Pantoprazole Sodium) 40 Mg Tab 40 Mg PO DAILY Zantac (Ranitidine HCl) 150 Mg Tab 150 Mg PO BID Allergies: Coded Allergies: Penicillin (Verified Allergy, Severe, HIVES IN THROAT, CAN'T BREATHE, 12/11) Family History Mother had NE Father had squamous cell carcinoma Social History Stop smoking cigarettes a year and a half ago. Only drink alcohol during the weekend socially Physical Exam Vital Signs Vital Signs Date Time Temp Pulse Resp B/P Pulse Ox O2 Delivery O2 Flow Rate FiO2 01/22/17 15:32 98.5 112 20 116/67 96 Physical Exam GENERAL: This is a well-nourished, well-developed patient, in no apparent distress. SKIN: No rashes, ecchymoses or lesions. Cool and dry. HEAD: Atraumatic. Normocephalic. No temporal or scalp tenderness. EYES: Pupils equal round and reactive. Extraocular motions intact. No scleral icterus. No injection or drainage. ENT: Nose without bleeding, purulent drainage or septal hematoma. Throat without erythema, tonsillar hypertrophy or exudate. Uvula midline. Airway patent. NECK: Trachea midline. No JVD or lymphadenopathy. Supple, nontender, no meningeal signs. CARDIOVASCULAR: Regular rate and rhythm RESPIRATORY: Clear to auscultation. Breath sounds equal bilaterally. No wheezes , rales, or rhonchi. GASTROINTESTINAL: Abdomen soft, non-tender, nondistended. No hepato-splenomegaly , or palpable masses. No guarding. MUSCULOSKELETAL: Extremities without clubbing, cyanosis, or edema. No joint tenderness, effusion, or edema noted. No calf tenderness. Negative Homans sign bilaterally. NEUROLOGICAL: Awake and alert to person place time and situation. Cranial nerves II through XII intact. Motor and sensory grossly within normal limits. Overall Five out of 5 muscle strength in all muscle groups. Normal speech. Laboratory Laboratory Tests Test 01/22/17 01/22/17 15:45 17:05 White Blood Count 27.4 Red Blood Count 4.08 Hemoglobin 10.9 Hematocrit 33.7 Mean Corpuscular Volume 82.8 Mean Corpuscular Hemoglobin 26.7 Mean Corpuscular Hemoglobin 32.3 Concent Red Cell Distribution Width 15.0 Platelet Count 491 Mean Platelet Volume 7.5 Neutrophils (%) (Auto) Lymphocytes (%) (Auto) Monocytes (%) (Auto) Eosinophils (%) (Auto) Basophils (%) (Auto) Neutrophils # (Auto) Lymphocytes # (Auto) Monocytes # (Auto) Eosinophils # (Auto) Basophils # (Auto) CBC Comment AUTO DIFF Differential Total Cells 100 Counted Neutrophils % (Manual) 58 Band Neutrophils % 7 Lymphocytes % 5 Monocytes % 4 Eosinophils % 26 Neutrophils # (Manual) 17.8 Differential Comment FINAL DIFF MANUAL Platelet Estimate HIGH Platelet Morphology Comment NORMAL Prothrombin Time 11.6 Prothromb Time International 1.0 Ratio Activated Partial 28.9 Thromboplast Time Sodium Level 137 Potassium Level 4.3 Chloride Level 99 Carbon Dioxide Level 29.7 Anion Gap 8 Blood Urea Nitrogen 14 Creatinine 0.89 Estimat Glomerular Filtration 88 Rate Random Glucose 101 Calcium Level 9.9 Total Bilirubin 0.4 Aspartate Amino Transf 18 (AST/SGOT) Alanine Aminotransferase 31 (ALT/SGPT) Alkaline Phosphatase 194 Total Protein 7.7 Albumin 2.7 Lactic Acid Level 1.5 Date/Time Procedure Status Source Growth 01/22/17 17:06 Aerobic Blood Culture Received Blood Peripheral Pending 01/22/17 17:06 Anaerobic Blood Culture Received Blood Peripheral Pending Result Diagram: 01/22/17 1545 01/22/17 1545 Imaging Last Impressions Lumbar Spine CT 01/22/17 0000 Signed Impressions: Service Date/Time: December 16:23 - CONCLUSION: Stable lumbar alignment status post posterior fusion from L3-L5 Partial resection of the posterior aspect of L4 for spinal canal decompression. Post surgical changes within the spinal canal cannot be clearly distinguished from the thecal sac through the surgical site. Seroma versus pseudomeningocele cannot be excluded. No other significant change compared to the preoperative exam Ernie Guajardo MD Assessment and Plan Assessment and Plan 1. Intractable low back pain with a history of metastatic pathological fracture status post surgical intervention on January [address] Darnell this time Dr. Combs is recommending a 24-hour observation for further evaluation with MRI of the lumbar spine. Will continue with IV pain medication along with physical therapy evaluation. 2. Non-small cell carcinoma with metastasis. Follow-up with oncologist Dr. Ng. 3. Leukocytosislikely due to history of carcinoma as patient's WBC was elevated during previous admission. No active clinical signs of infection at this time, lactic acid levels reviewed. 4. DVT prophylaxisLovenox. Kim Miguel MD Jan 22, 2017 18:29
[2017-01-22 19:02] LABS: BACTERIA, URINE RARE /hpf; BLOOD, URINE NEG (NEG); COMMENT (UR) CULT NOT INDICATED; CULTURE IF INDICATED CULT NOT INDICATED; GLUCOSE,URINE NEG (NEG); KETONE, URINE NEG (NEG); NITRITE,URINE NEG (NEG); PH, URINE 5.5 (5.0-8.5); URINE COLOR YELLOW (YELLW/STRAW)
[2017-01-22] MEDS ORDERED: GADODIAMIDE PF 287 MG/ML 20 ML VIAL (for RAD MRI) IV ONE (19:23)
[2017-01-22] MEDS ORDERED: ENOXAPARIN SODIUM 40 MG/0.4 ML SYRINGE SQ SCH (20:00)
--- NOTE | 2017-01-22 20:37 | RADRPT ---
EXAM DATE/TIME: 01/22/2017 18:59 [facility] COMPARISON: CT LUMBAR SPINE W/O CONTRAST, January 22, 2017, 16:23. MRI LUMBAR SPINE W & W/O CONTRAST, January 01, 2017 , 16:32. INDICATIONS : Lower back pain. Patient with metastatic lung cancer with status post tumor resection and lumbar fusi on several weeks ago. CONTRAST: 20 cc Omniscan (gadodiamide) IV MEDICAL HISTORY : Carcinoma, lung. SURGICAL HISTORY : Fusion, lumbar. ENCOUNTER: Initial ACUITY: 3 weeks PAIN SCORE: 3/10 LOCATION: Lower back. TECHNIQUE: Multiplanar multisequence MRI of the lumbar spine was performed with and without contrast. FINDINGS: The patient is again noted to be status post fusion at the L3-L5 level with left-sided pedicle screws . There are right-sided pedicle screws at the L3 and L5 level. There are posterior fixation rods. The patient is status post right laminectomy at the L3-4 and L4-5 levels. Enhancing tumor is again noted involving the entire L4 vertebral body with diffuse inhomogeneous enhancement. This extends into the right pedicle and to the site of resection. There is also enhancing tumor involving the right side o f the S1 vertebra which extends into the right pedicle and lateral portion of the upper sacrum to the level of the SI joint. There is also enhancing tumor in the left side of the L3 vertebral body. There is a oderate compression fracture deformity again noted involving the L4 vertebral body with in vagination of the endplates. Retropulsion of the posterior aspect of the vertebral artery is again no emmanuel without significant change. This measures up to approximately 8 mm in diameter. The thecal sac re nora flattened anteriorly but is increased in size secondary to the right-sided laminectomy. The bal ral foramina remain narrowed left greater than right without change. There are postoperative changes involving the posterior elements with small fluid collection in the surgical defect measuring 1.4 x 1 cm. There is surrounding enhancement. CONCLUSION: 1. Postsurgical changes are again noted status post fusion and right hemilaminectomies at the L3-4 an d L4-5 levels. 2. Moderate pathologic compression fracture deformity of L4 with stable retropulsion with flattening of the anterior thecal sac. The diameter of the thecal sac is mildly improved secondary to the marquis ctomy. 3. Metastatic disease again noted involving the L3, L4 and S1 vertebra. 4. Postsurgical change with small fluid collection in the laminectomy defect at the L3-4 level which is nonspecific but may represent a seroma. Nam Mcghee MD on January 22, 2017 at 20:21 Board Certified Radiologist. This report was verified electronically. extending into the pedicle, lamina and SI joint.
[2017-01-22 20:47] VITALS: BP 125/57; PULSE 116; RESP 16; TEMP 98.6; O2SAT 93
[2017-01-22] MEDS: DOCUSATE SODIUM 50 MG/SENNA 8.6 MG TAB PO SCH (21:00)
[2017-01-22] MEDS: SODIUM CHLORIDE 0.9% FLUSH 10 ML FLUSH IV FLUSH SCH (22:35)
[2017-01-22] MEDS: ACETAMINOPHEN/HYDROcodone 325 MG/10 MG TAB PO PRN (22:36)
[2017-01-23 02:28] VITALS: BP 135/76; PULSE 102; RESP 18; O2SAT 93
[2017-01-23] MEDS: ACETAMINOPHEN/HYDROcodone 325 MG/10 MG TAB PO PRN ×3 (02:31→13:08)
[2017-01-23 05:30] VITALS: BP 132/76; PULSE 98; RESP 16; TEMP 98.1; O2SAT 95
[2017-01-23 08:24] VITALS: BP 135/65; PULSE 100; RESP 15; TEMP 99.9; O2SAT 95
[2017-01-23] MEDS: DOCUSATE SODIUM 50 MG/SENNA 8.6 MG TAB PO SCH (08:48)
[2017-01-23] MEDS: SODIUM CHLORIDE 0.9% FLUSH 10 ML FLUSH IV FLUSH SCH (08:49)
--- NOTE | 2017-01-23 10:47 | HHI.PR ---
Subjective Remarks In bed. Says he wants to go home. No new motor or sensory deficit. No fever or chills. Patient says he has tooth pain. He is fede to eat. He also run out of pain meds and wants some pain meds at home until will have another prescription from his doctor. Objective Vitals Vital Signs Date Time Temp Pulse Resp B/P Pulse Ox O2 Delivery O2 Flow Rate FiO2 01/23/17 08:24 99.9 100 15 135/65 95 01/23/17 05:30 98.1 98 16 132/76 95 01/23/17 02:28 102 18 135/76 93 01/22/17 20:47 98.6 116 16 125/57 93 01/22/17 18:16 100 20 134/62 01/22/17 15:32 98.5 112 20 116/67 96 I/O 01/22/17 01/22/17 01/22/17 01/23/17 01/23/17 01/23/17 07:00 15:00 23:00 07:00 15:00 23:00 Output Total 400 ml 600 ml Balance -400 ml -600 ml Output Urine Total 400 ml 600 ml # Voids 1 # Bowel Movements 0 Result Diagram: 01/22/17 1545 01/22/17 1545 Imaging Last Impressions Lumbar Spine MRI 01/22/17 0000 Signed Impressions: Service Date/Time: December 18:59 - CONCLUSION: 1. Postsurgical changes are again noted status post fusion and right hemilaminectomies at the L3-4 and L4-5 levels. 2. Moderate pathologic compression fracture deformity of L4 with stable retropulsion with flattening of the anterior thecal sac. The diameter of the thecal sac is mildly improved secondary to the laminectomy. 3. Metastatic disease again noted involving the L3, L4 and S1 vertebra. 4. Postsurgical change with small fluid collection in the laminectomy defect at the L3-4 level which is nonspecific but may represent a seroma. Nam Mcghee MD Lumbar Spine CT 01/22/17 0000 Signed Impressions: Service Date/Time: December 16:23 - CONCLUSION: Stable lumbar alignment status post posterior fusion from L3-L5 Partial resection of the posterior aspect of L4 for spinal canal decompression. Post surgical changes within the spinal canal cannot be clearly distinguished from the thecal sac through the surgical site. Seroma versus pseudomeningocele cannot be excluded. No other significant change compared to the preoperative exam Ernie Guajardo MD Chest X-Ray 01/22/17 0000 Signed Impressions: Service Date/Time: December 17:43 - CONCLUSION: Increasing right lung opacity likely representing a combination of mass, airspace disease and pleural effusion. Multiple left lung nodules consistent with metastatic disease. Stable [id number]. Ernie Guajardo MD Objective Remarks GENERAL: This is a well-nourished, well-developed patient, in no apparent distress. CARDIOVASCULAR: Regular rate and rhythm RESPIRATORY: Clear to auscultation. Breath sounds equal bilaterally. No wheezes , rales, or rhonchi. GASTROINTESTINAL: Abdomen soft, non-tender, nondistended. No hepato-splenomegaly , or palpable masses. No guarding. MUSCULOSKELETAL: Extremities without clubbing, cyanosis, or edema. No joint tenderness, effusion, or edema noted. No calf tenderness. Negative Homans sign bilaterally. NEUROLOGICAL: Awake and alert to person place time and situation. Cranial nerves II through XII intact. Motor and sensory grossly within normal limits. Overall Five out of 5 muscle strength in all muscle groups. Normal speech. A/P Assessment and Plan Intractable low back pain with a history of metastatic pathological fracture status post surgical intervention on January [address] Combs at this time Dr. Combs is recommending a 24-hour observation for further evaluation with MRI of the lumbar spine. Will continue with IV pain medication along with physical therapy evaluation. patient is cleared for DC by Dr Combs, recommends corticosteroid injection as OP. Patient to follow up as OP with pain management. Non-small cell carcinoma with metastasis. Follow-up with oncologist Dr. Ng. Leukocytosislikely due to history of carcinoma as patient's WBC was elevated during previous admission. No active clinical signs of infection at this time, lactic acid levels reviewed. DVT prophylaxisLovenox. Discussed with the patient, nurse, family- at bedside, neurosurgery Discharge Planning Discharge home with home health in stable condition. To follow up as OP with pain management for steroid injection. To f/u with his PCP and consultants as OP Diet: regular healthy as tolerated Activity ad nel as tolerated Meds per med reconciliations Discharge time > 30 minutes Cosma,Claribel MD Jan 23, 2017 10:47
[2017-01-23 11:15] VITALS: BP 138/67; PULSE 105; RESP 17; TEMP 98.6; O2SAT 95
--- NOTE | 2017-01-23 13:13 | HHI.NSPN ---
(Kanika Avila) Note Status Status: Progress Note (Kanika Avila) Interval History Interval History Mr. Mae is a 56 year old male with bony metastatic spine disease. His previous MRI showed bony spinal lesions, and pathological fracture of L4 causing severe canal stenosis at L4-5. He underwent He underwent L4 corpectomy , open reduction of pathological fracture with resection of metastatic carcinoma , L2 to L4 posterolateral fusion and autologous bone graft, L2 to L4 segmental instrumental fixation using transpedicular screws and rods, microsurgical dissection. Following his surgery he reported of resolution of his previous severe right L5 radiculopathy. He was doing well until recently developed recurrent lumbar pain and pain radiating his left leg posterolaterally. He denies bowel or bladder incontinence, fevers or chills. He reports his pain is worsened when he sits or stands. His pain is alleviated when laying flat or reclining. He denies any recent falls or trauma. He has followed up with his Oncologist and radiation oncologist and will be undergoing radiation treatment soon. He was seen two days ago in the office and a stat CT L spine was ordered. He was unable to obtain the studies and his pain became much worse and came in to the ED for further evaluation. A CT L spine has been obtained. 01/23: continues to complain of lumbar and left lateral leg pain, difficult to ambulate due to pain. MRI L spine w/wo contrast completed. (Kanika Avila ) Labs, Micro, & Vital Signs Results Date Time Temp Pulse Resp B/P Pulse Ox O2 Delivery O2 Flow Rate FiO2 01/23/17 08:24 99.9 100 15 135/65 95 01/23/17 05:30 98.1 98 16 132/76 95 01/23/17 02:28 102 18 135/76 93 01/22/17 20:47 98.6 116 16 125/57 93 01/22/17 18:16 100 20 134/62 01/22/17 15:32 98.5 112 20 116/67 96 01/23/17 07:00 Output Total 1000 ml Balance -1000 ml Last Impressions Lumbar Spine MRI 01/22/17 0000 Signed Impressions: Service Date/Time: December 18:59 - CONCLUSION: 1. Postsurgical changes are again noted status post fusion and right hemilaminectomies at the L3-4 and L4-5 levels. 2. Moderate pathologic compression fracture deformity of L4 with stable retropulsion with flattening of the anterior thecal sac. The diameter of the thecal sac is mildly improved secondary to the laminectomy. 3. Metastatic disease again noted involving the L3, L4 and S1 vertebra. 4. Postsurgical change with small fluid collection in the laminectomy defect at the L3-4 level which is nonspecific but may represent a seroma. Nam Mcghee MD Lumbar Spine CT 01/22/17 0000 Signed Impressions: Service Date/Time: December 16:23 - CONCLUSION: Stable lumbar alignment status post posterior fusion from L3-L5 Partial resection of the posterior aspect of L4 for spinal canal decompression. Post surgical changes within the spinal canal cannot be clearly distinguished from the thecal sac through the surgical site. Seroma versus pseudomeningocele cannot be excluded. No other significant change compared to the preoperative exam Ernie Guajardo MD Chest X-Ray 01/22/17 0000 Signed Impressions: Service Date/Time: December 17:43 - CONCLUSION: Increasing right lung opacity likely representing a combination of mass, airspace disease and pleural effusion. Multiple left lung nodules consistent with metastatic disease. Stable [id number]. Ernie Guajardo MD Constitutional Vital Signs Date Time Temp Pulse Resp B/P Pulse Ox O2 Delivery O2 Flow Rate FiO2 01/23/17 08:24 99.9 100 15 135/65 95 01/23/17 05:30 98.1 98 16 132/76 95 01/23/17 02:28 102 18 135/76 93 01/22/17 20:47 98.6 116 16 125/57 93 01/22/17 18:16 100 20 134/62 01/22/17 15:32 98.5 112 20 116/67 96 01/23/17 07:00 Output Total 1000 ml Balance -1000 ml (Kanika Avila) Review of Systems/Exam Exam Mr. Mae is alert, in no apparent distress. Speech is appropriate. His incision is healing well, no signs of infection. Cranial nerve: pupils equal, round and reactive to light. Extra-ocular movements are intact. Facial motor are normal and symmetrical. Gross hearing appears intact. Muscle strength: limited due to back pain but moved both iliopsoas, quadriceps, hamstrings, plantarflexion, dorsiflexion in the lower extremities grossly 5/5 Sensory examination is intact to light touch in both the upper and lower extremities. No ankle clonus. (Kanika Avila) Medications Current Medications Current Medications Medications (Trade) Dose Ordered Sig/Nilo Route PRN Reason Start Time Stop Time Status Last Admin Dose Admin Sodium Chloride (NS Flush) 2 ml UNSCH PRN IV FLUSH FLUSH AFTER USING IV ACCESS 01/22/17 18:00 Sodium Chloride (NS Flush) 2 ml BID IV FLUSH 01/22/17 21:00 01/23/17 08:49 Acetaminophen (Tylenol) 650 mg Q4H PRN PO TEMP > 100.4 01/22/17 18:00 Ondansetron HCl (Zofran Inj) 4 mg Q6H PRN IVP NAUSEA OR VOMITING 01/22/17 18:00 Enoxaparin Sodium (Lovenox Inj) 40 mg Q24H SQ 01/22/17 20:00 Acetaminophen (Tylenol) 650 mg Q6H PRN PO PAIN SCALE 1 TO 2 01/22/17 18:00 Acetaminophen/ Hydrocodone Bitart (Carbon 5-325 Mg) 1 tab Q4H PRN PO PAIN SCALE 3 TO 5 01/22/17 18:00 Acetaminophen/ Hydrocodone Bitart (Carbon 10-325 Mg) 1 tab Q4H PRN PO PAIN SCALE 6 TO 10 01/22/17 18:00 01/23/17 13:08 Morphine Sulfate (Morphine Inj) 4 mg Q3H PRN IV BREAKTHROUGH PAIN 01/22/17 18:00 Naloxone HCl (Narcan Inj) 0.4 mg UNSCH PRN IV SEE LABEL COMMENTS 01/22/17 18:00 Senna/Docusate Sodium (Ese-Colace) 1 tab BID PO 01/22/17 21:00 01/23/17 08:48 Magnesium Hydroxide (Milk Of Magnesia Liq) 30 ml Q12H PRN PO MILD - MODERATE CONSTIPATION 01/22/17 18:00 Sennosides (Senokot) 17.2 mg Q12H PRN PO MODERATE - SEVERE CONSTIPATION 01/22/17 18:00 Bisacodyl (Dulcolax Supp) 10 mg DAILY PRN RECTAL SEVERE CONSITIPATION 01/22/17 18:00 Lactulose (Lactulose Liq) 30 ml DAILY PRN PO SEVERE CONSITIPATION 01/22/17 18:00 (Kanika Avila) Medical Decision Making MDM Remarks 56 y/o male with spine metastases, pathological L4 fracture causing severe stenosis, he underwent L4 corpectomy, L3 to L5 posterolateral fusion using transpedicular screws and rods. He was doing well following surgery then developed recurrent severe lumbar and L4 radiculopathy f/u CT L spine today reviewed, stable findings MRI L spine also with stable findings, no significant neural compromise (Knaika Avila) Plan Plan Remarks MRI L spine reviewed, Dr. Combs recommends trial of epidural steroid injections, no further surgical intervention planned, cont supportive care and pain control TLSO when out of bed, clear to dc home from NRS standpoint (Kanika Avila) Attending Statement Neuro. Neuro checks in a serial fashion. Respiratory. pulmonary toilette, nasotracheal suction, and breathing treatments with nebulizers. PT and OT eval Nutrition. NPO Renal. monitor closely urine output, BUN and creatinine Endocrine. Monitor serial Acu checks and SSI for tight control ID monitor for signs of infection Protonix for stress ulcer prophylaxis Leo hose and SCD's for DVT prophylaxis The exam, history, and the medical decision-making described in the above note were completed with the assistance of the mid-level provider. I reviewed and agree with the findings presented. I attest that I had a [id number] encounter with the patient on the same day, and personally performed and documented my assessment and findings in the medical record. (Ricki Combs MD) Kanika Avila Jan 23, 2017 13:13 Ricki Combs MD Jan 26, 2017 08:26
[2017-01-23] MEDS ORDERED: AMOX875T2 PO (14:00)
[2017-01-23] MEDS ORDERED: LACTTAB8 PO (14:00)
[2017-01-23] MEDS ORDERED: CLIN1CAP6 PO (14:21)
[2017-01-23] MEDS ORDERED: HYDR-3583 PO (14:25)
--- NOTE | 2017-01-23 14:42 | HHI.FF ---
Face to Face Verification Diagnosis: (1) Postoperative pain (2) Stage IV adenocarcinoma of lung (3) Stage IV squamous cell carcinoma of lung (4) Lung mass (5) Melanoma (6) Acute renal failure Physical Therapy Order: Evaluate and Treat Home Health Nursing Order: Medical education Signs/symptoms of disease process Medication education-adverse effect Nursing assessment with vital signs I have seen patient Yemi Mae on 01/23/17. My clinical findings support the need for the requested home health care services because: Ltd mobility - disease progression Patient has SOB I certify that my clinical findings support that this patient is homebound because: Post-op weakness Claribel Patel MD Jan 23, 2017 14:42
[2017-01-28] MEDS ORDERED: DULO1CAP2 PO (11:01)
== END 2017-01-23 16:55 | disposition home or self-care (01) ==
LOC: NEPE 15:29 → NEDA 17:55 → NEPGCP 19:07 → NEDH 01-23 14:14 → NEPGCP 01-23 14:17
PROVIDERS: ADMIT Hospitalist; ATTEND Hospitalist
DX: M54.5 Low back pain (principal); D72.829 Elevated white blood cell count, unspecified; M79.605 Pain in left leg; G89.18 Other acute postprocedural pain; C34.90 Malignant neoplasm of unspecified part of unspecified bronchus or lung; C79.51 Secondary malignant neoplasm of bone; M84.40XD Pathological fracture, unspecified site, subsequent encounter for fracture with routine healing; R05 Cough; R91.8 Other nonspecific abnormal finding of lung field; M25.552 Pain in left hip; H92.01 Otalgia, right ear; R68.84 Jaw pain; M48.06 Spinal stenosis, lumbar region; K08.89 Other specified disorders of teeth and supporting structures; E78.00 Pure hypercholesterolemia, unspecified; Z98.1 Arthrodesis status; Z85.820 Personal history of malignant melanoma of skin; Z79.899 Other long term (current) drug therapy; Z87.891 Personal history of nicotine dependence
CPT/HCPCS: 71010; 72131; 72158; 80053; 81001; 83605; 85007; 85027; 85610; 85730; 87040; 96361; 96374; 96375; 97162; 99285; A9579; G0378; G8987; G8988; J2270; J2405; J7040